=== PATIENT | male | born 1955 | race Caucasian/White ===

== ENCOUNTER 2020-07-26 12:05 | Emergency (ER) | payer OTHER, SELFPAY ==
[2020-07-26 12:24] VITALS: BP 178/106; PULSE 73; RESP 18; TEMP 37; O2SAT 98; BMI 32.8
--- NOTE | 2020-07-26 12:38 | ED.MALEGU ---
HPI - Male Genitourinary General Chief complaint: Urogenital-Male Stated complaint: Urinary Retention Time Seen by Provider: 07/26/20 12:28 Source: patient Mode of arrival: ambulatory Limitations: no limitations History of Present Illness HPI Narrative: patient comes to emergency room complaining of difficulty urinating. Patient states it mullins when he tries to urinate. His symptoms started earlier this morning, approximately 3 hours ago. States it is the 1st time this happens. Denies hematuria, No flank pain, No abdominal pain. Patient states he has been dribbling Related Data Previous Rx's Medication Instructions Recorded phenazopyridine 100 mg PO TID 4 Days #12 tab 07/26/20 tamsulosin 0.4 mg PO BEDTIME #14 cap 07/26/20 Allergies Allergy/AdvReac Type Severity Reaction Status Date / Time No Known Allergies Allergy Verified 07/26/20 12:38 [No Known Allergies*] Review of Systems Review of Systems: Constitutional : No Weight loss, No Fever, No Chills, No Night Sweats, No Fatigue, No Malaise ENT/Mouth : No Hearing loss, No Ear Pain, No Nasal Congestion, No Sinus Pain, No Hoarseness, No sore throat, No Rhinorrhea, No Swallowing Difficulty Eyes: No Eye Pain, No Swelling, No Redness, No Foreign Body, No Discharge, No Vision Changes Cardiovascular : No Chest Pain, No SOB, No Dyspnea on Exertion, No Orthopnea, No Edema, No Palpitations Respiratory : No Cough, No Sputum, No Wheezing, No Smoke Exposure, No Dyspnea Gastrointestinal : No Nausea, No Vomiting, No Diarrhea, No Constipation, No abdominal Pain, No Hematochezia, No Melena Genitourinary : patient comes in complaining urinary retention, dysuria, dribbling , patient denies Flank Pain, Musculoskeletal : No joint pain, No Myalgias, No Joint Swelling Skin : No Skin Lesions, No rash Neuro : No Weakness, No Numbness, No Paresthesias, No Loss of Consciousness, No Dizziness, No Headache Psych : No Anxiety/Panic, No Depression, No SI/HI/AH/VH, No Social Issues, Heme/Lymph: No Bruising, No Bleeding,No Lymphadenopathy Endocrine : No Polyuria, No Polydipsia, No Temperature Intolerance Yes all other systems are reviewed and are negative PMFSH Past Medical History Medical History Hyperlipemia Hypertension Right rib fracture Social History Social History Alcohol intake: current Alcohol intake frequency: a few times a week Smoking Status: Current every day smoker Use of substances other than those prescribed or required for medical reasons: No Advance Directives: No Advance Directives Information Provided: No Physical Exam Vital Signs: Vital Signs: Vital Signs Temp Pulse Resp BP Pulse Ox 07/26/20 12:24 98.6 F 73 18 178/106 H 98 Body Mass Index 32.8 Appearance: Alert. Oriented X3. No acute distress. Eyes: Pupils equal, round and reactive to light. ENT: Pharynx normal. Neck: Normal inspection. Neck supple. No lymph nodes noted. No crepitus CVS: Normal heart rate and rhythm. Pulses normal. Normal S1 and S2 Respiratory: No respiratory distress. Breath sounds normal. No Wheezing. No rales Abdomen: Soft and nontender. No rigidity. No distention. good BS x4, bedside bladder scan shows 48 mL of urine : prostate is mildly enlarged, nontender, No palpable nodules Skin: Skin warm and dry. Normal skin color. Normal skin turgor. Extremities: No lower extremity edema. No lower extremity edema. No Lacerations. No Rash Neuro: Oriented X 3. No motor deficit. No sensory deficit. Moving all extermities. No slurred speech. Course Course Course Narrative: patient states that suddenly he is urinating normal. I discussed with the patient that he does not have a urinary tract infection. We will send him home with a prescription of tamsulosin and phenazopyridine to help with the burning sensation. Patient instructed to follow-up with his primary care physician and Urology [facility] - Male Genitourinary Lab Data Labs: Lab Results 07/26/20 Range/Units 13:00 Urine Color YELLOW Urine Appearance HAZY Urine pH 6.0 (5.0-8.0) Ur Specific [place] >= 1.030 H (1.005-1.025) Urine Protein TRACE (NEG-TRACE) MG/DL Urine Glucose (UA) NEG (NEG) MG/DL Urine Ketones NEG (NEG) MG/DL Urine Blood 2+ H (NEG) Urine Nitrite NEG (NEG) Ur Leukocyte Esterase NEG (NEG) Urine RBC 5-9 H (0) /HPF Urine WBC 0 (0-4) /HPF Ur Squamous Epith Cells 1+ /LPF Urine Bacteria NONE /LPF Urine Mucus 1+ /LPF Discharge Plan Discharge Clinical Impression: Benign prostatic hyperplasia (BPH) with urinary urgency Patient Disposition: Home, Self-Care Instructions: Enlarged Prostate (BPH) (ED) Additional Instructions: Please follow-up with your primary care physician tomorrow. If you have any worsening or new symptoms, please return to the emergency room or call 911 Prescriptions: New tamsulosin 0.4 mg capsule 0.4 mg PO BEDTIME Qty: 14 RF: 0 phenazopyridine 100 mg tablet 100 mg PO TID 4 Days Qty: 12 RF: 0
[2020-07-26 13:15] LABS: Glucose Urine UA NEG (NEG); Leukocyte Esterase Urine NEG (NEG); Nitrite Urine NEG (NEG); Specific Gravity - Urine >= 1.030 (1.005-1.025); Urine Blood 2+ (NEG); Urine Ketones NEG (NEG); Urine Protein TRACE MG/DL (NEG-TRACE)
[2020-07-26 13:16] LABS: Appearance Urine HAZY; Color Urine YELLOW
[2020-07-26 13:22] LABS: Mucus Urine 1+ /LPF; Squamous Epithelial Cell Urine 1+ /LPF; WBC Urine 0 /HPF (0-4)
== END 2020-07-26 14:16 | disposition home or self-care (01) ==
PROVIDERS: Emergency Provider Emergency Medicine; PCP Internal Medicine
DX: N40.1 Benign prostatic hyperplasia with lower urinary tract symptoms (principal); R39.15 Urgency of urination; F17.200 Nicotine dependence, unspecified, uncomplicated; Z71.6 Tobacco abuse counseling; Z79.899 Other long term (current) drug therapy
CPT/HCPCS: 51798; 81001; 99283; 99284

== ENCOUNTER 2020-09-11 14:35 | Emergency (ER) | payer OTHER, SELFPAY ==
[2020-09-11 14:52] VITALS: BP 118/91; PULSE 93; RESP 17; TEMP 36.6; O2SAT 98; BMI 33.2
--- NOTE | 2020-09-11 16:56 | ED_ITS ---
HPI - Allergic Reaction General Chief complaint: Allergic Reaction Stated complaint: allergic reaction Time Seen by Provider: 09/11/20 16:55 Source: patient Mode of arrival: ambulatory Limitations: no limitations History of Present Illness HPI narrative: 65 y/o male with history of BPH, HLD, HTN on lisinopril and atenolol presents to the ED today with acute onset of lower lip swelling that started at noon today. He reports he also noticed a itchy rash all over his body yesterday that improved today after taking a bath with aveeno. He took his BP meds early this morning. He has never had this reaction before. He denies wheezing, SOB, tongue swelling, difficulty swallowing or speaking. He states the rash yesterday started on his thighs and spread to his chest and back. It is significantly improved today. MD complaint: allergic reaction and facial swelling Onset (ago): hour(s) (5) Exposure: medication Symptoms: rash, itching and lip swelling Severity: moderate Treatment prior to arrival: none Previous Allergic Reaction History: none Related Data Home Medications Medication Instructions Recorded Confirmed atenolol 50 mg tablet 50 mg PO DAILY 07/30/20 08/24/20 Previous Rx's Medication Instructions Recorded phenazopyridine 100 mg PO TID 4 Days #12 tab 07/26/20 tamsulosin 0.4 mg PO BEDTIME #14 cap 07/26/20 simvastatin 40 mg tablet 40 mg PO BEDTIME #90 tab 08/13/20 omeprazole 20 mg capsule,delayed 20 mg PO DAILY #60 cap 08/24/20 release famotidine [Pepcid] 40 mg PO DAILY #7 tab 09/11/20 prednisone 40 mg PO DAILY #8 tab 09/11/20 Allergies Allergy/AdvReac Type Severity Reaction Status Date / Time lisinopril Allergy Severe Angioedema Verified 09/11/20 17:13 Review of Systems Review of Systems: Constitutional: No Fever, No Chills ENT/Mouth: No sore throat, No Rhinorrhea, No Swallowing Difficulty, + lip swelling Eyes: No Swelling, + Redness (above left eye) Cardiovascular: No Chest Pain, No SOB Respiratory: No Cough, No Wheezing, No dyspnea Gastrointestinal: No Nausea, No Vomiting, No Diarrhea, No abdominal Pain, Musculoskeletal: No joint pain, No Myalgias Skin: No Skin Lesions, + rash Neuro: No Weakness, No Numbness, No Dizziness, No Headache Heme/Lymph: No Bruising, No Lymphadenopathy PMFSH Past Medical History Attestation statement: The following information was validated with the patient. Medical History Hyperlipemia Hypertension Right rib fracture Surgical History (Updated 07/29/20 @ 13:42 by GOPAL Montgomery) No pertinent past surgical history Family History Family History (Updated 07/29/20 @ 13:45 by GOPAL Montgomery) Father Cancer Mother Arthritis Social History Social History Alcohol intake: current Alcohol intake frequency: a few times a week Smoking Status: Current every day smoker Advance Directives: No Advance Directives Information Provided: Yes Physical Exam Vital Signs: Vital Signs: Last Vital Signs Temp 98 F 09/11/20 14:52 Pulse 93 09/11/20 14:52 Resp 17 09/11/20 14:52 BP 118/91 H 09/11/20 14:52 Pulse Ox 98 09/11/20 14:52 Body Mass Index 33.2 Appearance: Alert. Oriented X3. No acute distress. Eyes: Pupils equal, round and reactive to light. Mild edema of bilateral upper eyelid, L>R, EOMI. No conjunctival injection., ENT: significant lower lip swelling, normal oropharynx, uvula midline, no tongue swelling, normal voice Neck: Normal inspection. Neck supple. CVS: Normal heart rate and rhythm. Pulses normal. Respiratory: No respiratory distress. Breath sounds normal. Skin: Skin warm and dry. Normal skin color. Normal skin turgor. mild scattered maclopapular erythematous rash on left arm, chest and upper back Extremities: No lower extremity edema. Neuro: Oriented X 3. No motor deficit. No sensory deficit. Course Course Course Narrative: 65 yo male presenting with lip swelling likely angioedema due to lisinopril. He is hemodynamically stable with SpO2 98% on room air. He reports the lip swelling is improving since this afternoon and he denies tongue swelling, difficulty swallowing. No wheezing, no airway involvement. Subjec tively improving. He spent 2 hours in the waiting room. Will monitor in the ER for another 2 hours minimum. Will frequently reassess. Reevaluation(s) Reevaluation #1: Patient given prednisone, pepcid and benadryl. He reports improvement in symptoms. Lip swelling is stable, possibly improving on the right side on re-evaluation. Will continue to monitor in the ER. Signed out to Rosemary BUSH. MDM - Allergic Reaction Differential Diagnosis Differential diagnosis: Likely anaphylaxis, allergic reaction, angioedema, contact dermatitis, adverse reaction to drug and urticaria Discharge Plan Discharge Clinical Impression: Angioedema Patient Disposition: Home, Self-Care Instructions: Angioedema (ED) Additional Instructions: Your lip swelling today was most likely from an allergic reaction to LISINOPRIL. You should STOP taking Lisinopril immediately and never take it again. It should be on your allergy list from now on. Take Benadryl 25 mg every 6 hours until swelling is resolved. Follow up with your doctor on Monday so they can decide if you should be started on another medication for high blood pressure. If you develop any shortness of breath, wheezing, tongue swelling, difficulty swallowing, worsening lip swelling or any other concerning call 911 or come back to the ER for further evaluation. Angioedema can be life-threatening. Prescriptions: New prednisone 20 mg tablet 40 mg PO DAILY Qty: 8 RF: 0 famotidine [Pepcid] 40 mg tablet 40 mg PO DAILY Qty: 7 RF: 0 Continued simvastatin 40 mg tablet 40 mg PO BEDTIME Qty: 90 RF: 8 tamsulosin 0.4 mg capsule 0.4 mg PO BEDTIME Qty: 14 RF: 0 phenazopyridine 100 mg tablet 100 mg PO TID 4 Days Qty: 12 RF: 0 atenolol 50 mg tablet 50 mg PO DAILY RF: 0 omeprazole 20 mg capsule,delayed release(DR/EC) 20 mg PO DAILY Qty: 60 RF: 0 Discontinued lisinopril 10 mg tablet 10 mg PO DAILY Qty: 90 RF: 8
[2020-09-11] MEDS: Famotidine 20 MG TABLET PO (17:08)
[2020-09-11] MEDS: diphenhydrAMINE HCL 25 MG TABLET PO (17:08)
[2020-09-11] MEDS: predniSONE 20 MG TABLET 40 MG PO (17:09)
== END 2020-09-11 19:00 | disposition home or self-care (01) ==
PROVIDERS: Emergency Provider Internal Medicine; PCP Internal Medicine
DX: L23.9 Allergic contact dermatitis, unspecified cause (principal); F17.200 Nicotine dependence, unspecified, uncomplicated; Z71.6 Tobacco abuse counseling; Z79.899 Other long term (current) drug therapy
CPT/HCPCS: 99283; 99284; Q0163

== ENCOUNTER 2021-03-08 11:05 | Outpatient (REF) | payer OTHER, SELFPAY ==
[2021-03-08 12:39] LABS: Hematocrit 42.2 % (42-52); Hemoglobin 14.3 g/dl (14.0-18.0); Mean Corpuscular HGB Conc 33.9 g/dl (31.0-36.0); Mean Corpuscular Hemoglobin 31.3 pg (27.0-33.0); Mean Corpuscular Volume 92.3 fL (80-98); Mean Platelet Volume 10.1 fL (9.4-12.4); Platelet Count 399 X10*3/uL (160-400); Red Blood Count 4.57 X10*6/uL (4.60-5.80); Red Cell Distribution Width 12.6 % (11.0-16.0); White Blood Count 7.4 X10*3/uL (4.8-10.8)
[2021-03-08 13:35] LABS: Alanine Aminotransferase 24 U/L (0-40); Albumin Level 4.4 g/dL (3.5-5.0); Alkaline Phosphatase 77 U/L (39-117); Anion Gap 14 (12-20); Aspartate Amino Transferase 25 U/L (5-37); Bilirubin Total 0.8 mg/dL (0.0-1.0); Blood Urea Nitrogen 18 mg/dL (9-16); Calcium 9.6 mg/dL (8.4-10.2); Carbon Dioxide 28 mmol/L (22-29); Chloride 100 mmol/L (96-108); Cholesterol 139 mg/dL; Estimated Glomerular Filt Rate > 60; Glucose Random 100 mg/dL (60-115); HDL Cholesterol 44 mg/dL; LDL Cholesterol Calculated 82 mg/dl; Potassium 3.7 mmol/L (3.3-5.1); Sodium 138 mmol/L (135-145); Total Protein 7.2 g/dL (6.5-8.0); Triglycerides 67 mg/dL
[2021-03-08 13:41] LABS: Thyroid Stimulating Hormone 0.78 uIU/mL (0.32-4.0)
[2021-03-09 10:16] LABS: Free Prostate Spec Ag 0.5 ng/mL; Percent Free Prostate Spec Ag 31 % (calc) (>25); Prostate Specific Ag Total 1.6 ng/mL (< OR = 4.0)
== END 2021-03-08 11:06 | disposition home or self-care (01) ==
LOC: HO.LAB 11:05
PROVIDERS: PCP Internal Medicine; Visit Provider Internal Medicine
DX: E78.2 Mixed hyperlipidemia (principal); I10 Essential (primary) hypertension; N40.1 Benign prostatic hyperplasia with lower urinary tract symptoms
CPT/HCPCS: 36415; 80053; 80061; 84154; 84443; 85027

== ENCOUNTER 2022-11-08 09:56 | Outpatient (REF) | payer MEDICARE, MEDICAID, SELFPAY ==
--- NOTE | ~2022-11-08 | XR_ITS ---
EXAMINATION: XR LUMBOSACRAL SPINE CLINICAL INFORMATION: Low back pain. COMPARISON: None TECHNIQUE: Three views of the lumbosacral spine. XR/XR lumbar spine 2-3V FINDINGS/IMPRESSION: Findings suggest compression deformities of T10-T12, ages indeterminate. Recommend clinical correlation. If clinical suspicion for acute compression fracture exists, and if clinically indicated, MRI including STIR sequences may be of use for further evaluation. Findings also demonstrate bilateral spondylolysis with moderate disc degenerative change and grade 1 anterolisthesis at L5-S1. No lytic or sclerotic bony lesion is identified. The paraspinal soft tissues appear unremarkable. Dr. Johnson was directly informed of the findings by telephone at approximately 2:45 PM on November 10, 2022.
== END 2022-11-08 09:57 | disposition home or self-care (01) ==
LOC: HO.XRAY 09:56
PROVIDERS: PCP Internal Medicine; Visit Provider Internal Medicine
DX: M54.50 Low back pain, unspecified (principal)
CPT/HCPCS: 72100

== ENCOUNTER 2023-01-03 15:32 | Outpatient (REF) | payer MEDICARE, MEDICAID, SELFPAY ==
--- NOTE | ~2023-01-03 | MR_ITS ---
EXAMINATION: MR THORACIC SPINE WITHOUT CONTRAST CLINICAL INFORMATION: Lower back pain with multiple sites vertebral body fractures. Suspected T10-T12. COMPARISON: Plain films of the lumbar spine 11/18/2022. TECHNIQUE: MRI of the thoracic spine was obtained using routine sequences without contrast. FINDINGS: VERTEBRAL BODIES AND PARASPINAL STRUCTURES: There is a mild dextroscoliosis in the lower lumbar spine. There is multilevel narrowing of intervertebral disc height with loss of signal. There is a compression fracture have the body of T12 with loss of approximately 75% vertebral body height centrally. This vertebral body has hyperintense STIR signal extending into the bilateral pedicles of T12, consistent with an acute compression fracture. The signal from the adjacent T11 and L1 vertebral bodies appears isointense to the vertebrae elsewhere. However, there is increased STIR signal in the spinous process of T11, which may be consistent with a fracture there as well. There is mild loss of vertebral body height superiorly of T8 with approximately 30% vertebral body height loss centrally. This vertebra has isointense signal to the adjacent structures, consistent with a chronic fracture. Elsewhere, marrow signal is homogenous and appears normal. The paravertebral and the visualized posterior thoracic and superior retroperitoneal structures are unremarkable. There are multilevel degenerative changes at costovertebral junctions bilaterally. The conus is at the level of L2. Accounting for artifact, spinal cord signal appears normal. SPINAL LEVELS: C5-C6: There is reversal of the normal cervical lordosis. There is narrowing of intervertebral disc height at this level with posterior disc osteophytes, which efface CSF ventral to the spinal cord. There is likely bilateral foraminal narrowing at this level. C6-C7: There is a posterior disc protrusion with some effacement of CSF ventral to the cord but there is no cord compression or central stenosis. The neural foramina appear patent. C7-T1 through T10-T11: The posterior disc contours appear normal and there is no cord compression or central stenosis. The neural foramina appear patent. T11-T12: There is mild bilateral facet arthropathy. There is a posterior disc protrusion with some effacement of CSF ventral to the cord. There is posterior protrusion of the superior body of T12, with minimal mass effect on the cord and there is no significant stenosis. There is mild right foraminal narrowing. T12-L1: The facet joints appear normal bilaterally. Disc contour is normal. There is no central stenosis or foraminal narrowing. L1-L2: There is a small posterior disc protrusion with an annular fissure without mass effect on the conus. The neural foramina are patent bilaterally. MR/MR thoracic spine wo con IMPRESSION: 1. There is an acute compression fracture of the body of T12 with loss of approximately 75% vertebral body height centrally. There is abnormal signal in the bilateral pedicles of T12, consistent with an acute fracture. There is also likely a fracture of the spinous process of T11. 2. There are sequelae of a chronic compression fracture of the body of T8. 3. There are spondylitic changes at C5-C6 and C6-C7, which could be further evaluated with MRI scan of the cervical spine if clinically indicated. 4. At T11-T12 there is facet arthropathy and there is a posterior disc protrusion. There is no cord compression or central stenosis. There is mild right foraminal narrowing.
== END 2023-01-03 15:33 | disposition home or self-care (01) ==
LOC: HO.MRI 15:32
PROVIDERS: PCP Internal Medicine; Visit Provider Internal Medicine
DX: M54.50 Low back pain, unspecified (principal)
CPT/HCPCS: 72146

== ENCOUNTER 2023-05-01 10:53 | Outpatient (REF) | payer MEDICARE, MEDICAID, SELFPAY ==
--- NOTE | ~2023-05-01 | US_ITS ---
EXAMINATION: US EXTRACRANIAL CAROTID DUPLEX, BILATERAL CLINICAL INFORMATION: Hypertension. COMPARISON: None available. TECHNIQUE: Real-time ultrasound and Doppler techniques (integrating B-mode 2-D vascular images, Doppler spectral analysis and color-flow Doppler imaging) were utilized to interrogate the extracranial carotid arteries, the vertebral arteries and proximal subclavian arteries bilaterally. The degree of stenosis is determined by criteria similar to NASCET. FINDINGS: Right Side: 1. There is mild atherosclerotic plaque seen in the bifurcation/proximal ICA region. 2. The common carotid artery PSV proximally is 93 cm/s and distally 77 cm/s. 3. The proximal internal carotid artery velocities are 57 cm/s systolic and 11 cm/s diastolic. 4. The proximal external carotid artery PSV is 80 cm/s. 5. The vertebral artery shows antegrade flow. 6. The subclavian artery waveforms are normal. Left Side: 1. There is mild atherosclerotic plaque seen in the bifurcation/proximal ICA region. 2. The common carotid artery PSV proximally is 122 cm/s and distally 88 cm/s. 3. The proximal internal carotid artery velocities are 57 cm/s systolic and 14 cm/s diastolic. 4. The proximal external carotid artery PSV is 119 cm/s. 5. The vertebral artery shows antegrade flow. 6. The subclavian artery waveforms are normal. US/US carotid duplex BI IMPRESSION: 1. RIGHT: Minimal, non-hemodynamically significant stenosis of the proximal right internal carotid artery corresponding to a 0-49% stenosis by velocity criteria. 2. LEFT: Minimal, non-hemodynamically significant stenosis of the proximal left internal carotid artery corresponding to a 0-49% stenosis by velocity criteria.
== END 2023-05-01 10:54 | disposition home or self-care (01) ==
LOC: HO.US 10:53
PROVIDERS: PCP Internal Medicine; Visit Provider Pediatrics
DX: R42 Dizziness and giddiness (principal); I10 Essential (primary) hypertension
CPT/HCPCS: 93880

== ENCOUNTER 2025-01-03 08:51 | Outpatient (REF) | payer MEDICARE, SELFPAY ==
--- OUTSIDE RECORDS SUMMARY | 2025-01-03 09:28 | XMS_ITS | Encounter Summary ---
Author Organization [employer] Address [address] [place] [address] 7 [place] [address] Care Team Providers Care Freezing Room Worker Name Role Phone Reuben Johnson MD Primary Care Provider [phone] Encounter Details Date Type Department Care Team ([facility] Contact Info) Description 11/11/2022 Orders Only [facility] [address] [place] [address] Reuben Johnson MD [address], [place] [id number] Low back pain at multiple sites (Primary Dx) Social History Tobacco Use Types Packs/Day Years Used Date Smoking Tobacco: Every Day Cigarettes Smokeless Tobacco: Never Sex and Gender Information Value Date Recorded Sex Assigned at Male 08/01/2022 10:23 AM EDT Legal Sex Male 10:23 AM EDT Gender Identity Male 08/01/2022 10:23 AM EDT Sexual Orientation Straight 08/01/2022 10 :23 AM EDT COVID-19 Exposure Response Date Recorded In the last 10 days, have yo u been in contact with someone who was confirmed or suspected to have Coronavirus/COVID-19? No / Unsure 11/07/2022 3:17 PM EST documented as of this encounter Plan of Treatment Upcoming Encounters Date Type Department Care Team ([facility] Contact Info) Description 01/09/2025 1:00 PM EDT Clinical Support [facility] [address] [place] [address] 04/21/2025 1:00 PM EDT Office Visit [facility] [address], [place] [phone] Reuben Johnson MD [address] [place] [address] Scheduled Orders Name Type Priority Associated Diagnoses Orde r Schedule MR Thoracic Spine w/o Contrast Imaging Routine Low back pain at multiple sites Expected: 11/16/2022, Expires: 11/16/2023 documented as of this encounter Visit Diagnoses Diagnosis Low back pain at multiple sites- Primary documented in this encounter Care Teams Freezing Room Worker Relationship Specialty Start Date End Date Reuben Johnson MD [address] [place] [address] PCP - General Internal Medicine 03/08/21 documented as of this encounter
--- OUTSIDE RECORDS SUMMARY | 2025-01-03 09:28 | XMS_ITS | Encounter Summary ---
Author Organization [employer] [facility] Address [address] [place] [address] Care Team Providers Care Sheet Music Salesperson Name Role Phone Reuben Johnson MD Primary Care Provider [phone] Reason for Visit * Reason Comments Med Refill Encounter Details Date Type Department Care Team ([facility] Contact Info) Description 11/11/2024 Refill [facility] [address] [place] [address] Reuben Johnson MD [address] [place] [address] Venous insufficiency (chronic) (peripheral) Social History Tobacco Use Types Packs/Day Years Used Date Smoking Tobacco: Every Day Cigarettes Smokeless Tobacco: Never Sex and Gender Information Value Date Recorded Sex Assigned at Male 08/01/2022 10:23 AM EDT Legal Sex Male 10:23 AM EDT Gender Identity Male 08/01/2022 10:23 AM EDT Sexual Orientation Straight 08/01/2022 10 :23 AM EDT documented as of this encounter Plan of Treatment Upcoming Encounters Date Type Department Care Team ([facility] Contact Info) Description 01/09/2025 1:00 PM EDT Clinical Support [facility] [address] [place] [address] 04/21/2025 1:00 PM EDT Office Visit [facility] [address] [place] [address] Reuben Johnson MD [address] [place] [address] documented as of this encounter Visit Diagnoses Diagnosis Venous insufficiency (chronic) (peripheral) Unspecified venous (peripheral) insufficiency documented in this encounter Care Teams Sheet Music Salesperson Relationship Specialty Start Date End Date Reuben Johnson MD [address] [place] [id number] PCP - General Internal Medicine 03/08/21 documented as of this encounter
--- OUTSIDE RECORDS SUMMARY | 2025-01-03 09:28 | XMS_ITS | Encounter Summary ---
Author Organization [employer] [facility] Address [address] [place] [address] Care Team Providers Care Provider Relations Coordinator Name Role Phone Reuben Johnson MD Primary Care Provider [phone] Reason for Visit * Reason Comments Med Refill Encounter Details Date Type Department Care Team ([facility] Contact Info) Description 11/12/2024 Refill [facility] PEDS [address] [place] [address] Reuben Johnson MD [address] [place] [address] Benign prostatic hyperplasia with lower urinary tract symptoms Social History Tobacco Use Types Packs/Day Years [...] Upcoming Encounters Date Type Department Care Team (Late Contact Info) Description 01/09/2025 1:00 PM EDT Clinical Support [facility] P[facility] [address] [place] [address] 04/21/2025 1:00 PM EDT Office Visit [facility] PED[facility] [address] [place] [address] Reuben Johnson MD [address] [place] [address] documented as of this encounter Visit Diagnoses Diagnosis Benign prostatic hyperplasia with lower urinary tract symptoms documented in this encounter Care Teams Provider Relations Coordinator Relationship Specialty Start Date End Date Reuben Johnson MD [address] [place] [id number] PCP - General Internal Medicine 03/08/21 documented as of this encounter
--- OUTSIDE RECORDS SUMMARY | 2025-01-03 09:28 | XMS_ITS | Encounter Summary ---
Author Organization [employer] [facility] Address [address] [place] [address] Care Team Providers Care Corn Breeder Name Role Phone Reuben Johnson MD Primary Care Provider [phone] Reason for Visit * Reason Comments Med Refill Encounter Details Date Type Department Care Team ([facility] Contact Info) Description 11/16/2024 Refill [facility] PEDS [address] [place] [address] Reuben Johnson MD [address] [place] [address] Venous insufficiency (chronic) (peripheral) Social History Tobacco [...] Upcoming Encounters Date Type Department Care Team ([facility] Contact Info) Description 01/09/2025 1:00 PM EDT Clinical Support [facility] [address] [place] [address] 04/21/2025 1:00 PM EDT Office Visit [facility] [address] [place] [address] Reuben Johnson MD [address] [place] [address] documented as of this encounter Visit Diagnoses Diagnosis Venous insufficiency (chronic) (peripheral) Unspecified venous (peripheral) insufficiency documented in this encounter Care Teams Corn Breeder Relationship Specialty Start Date End Date Reuben Johnson MD [address] [place] [phone] PCP - General Internal Medicine 03/08/21 documented as of this encounter
--- OUTSIDE RECORDS SUMMARY | 2025-01-03 09:28 | XMS_ITS | Encounter Summary ---
Author Organization [employer] Address [address] [place] [address] 7t [place] [address] Care Team Providers Care Nut Former Name Role Phone Reuben Johnson MD Primary Care Provider [phone] Encounter Details Date Type Department Care Team ([facility] Contact Info) Description 02/22/2023 Orders Only [facility] [address] [place], [place] [phone] Reuben Johnson MD [address] [place], [place] [phone] Low back pain at multiple sites (Primary [...] suspected to have Coronavirus/COVID-19? No / Unsure 02/09/2023 10:16 AM EDT documented as of this encounter Plan of Treatment Upcoming Encounters Date Type Department Care Team ([facility] Contact Info) Description 01/09/2025 1:00 PM EDT Clinical Support [facility] [address] [place], [place] [phone] 04/21/2025 1:00 PM EDT Office Visit [facility] [address] [place], [place] [phone] Reuben Johnson MD [address] [place] [address] documented as of this encounter Visit Diagnoses Diagnosis Low back pain at multiple sites- Primary documented in this encounter Care Teams Nut Former Relationship Specialty Start Date End Date Reuben Johnson MD [address] [place] [address] PCP - General Internal Medicine 03/08/21 documented as of this encounter
--- OUTSIDE RECORDS SUMMARY | 2025-01-03 09:29 | XMS_ITS | Encounter Summary ---
Author Organization [employer] [facility] Address [address] [place] [address] 7 [place] [address] Care Team Providers Care Rolled Gold Plater Name Role Phone Reuben Johnson MD Primary Care Provider [phone] Reason for Visit * Reason Comments Med Refill Encounter Details Date Type Department Care Team ([facility] Contact Info) Description 12/28/2024 Refill [facility] [address] [place] [address] Reuben Johnson MD [address] [place] [address] Essential (primary) hypertension Social History Tobacco Use Types Packs/Day Years [...] Description 01/09/2025 1:00 PM EDT Clinical Support [facility] [address] [place] [address] 04/21/2025 1:00 PM EDT Office Visit [facility] [address] [place] [address] Reuben Johnson MD [address] [place] [address] documented as of this encounter Visit Diagnoses Diagnosis Essential (primary) hypertension Unspecified essential hypertension documented in this encounter Care Teams Rolled Gold Plater Relationship Specialty Start Date End Date Reuben Johnson MD [address] [place] [address] PCP - General Internal Medicine 03/08/21 documented as of this encounter
--- OUTSIDE RECORDS SUMMARY | 2025-01-03 09:29 | XMS_ITS | Encounter Summary ---
Author Organization [employer] Address [address] [place] [address] Care Team Providers Care Marine Animal Trainer Name Role Phone Reuben Johnson MD Primary Care Provider [phone] Reason for Referral * Imaging (Routine) - Authorized Specialty Diagnoses / Procedures Referred By Gerson bailey Referred To Contact Radiology Diagnoses Gynecomastia, male Procedures BI Mammogram Diagnostic Tomosynthesis added left Reuben Johnson MD [address] [place] [address] Phone: tel: fax: [address] Phone: tel: fax: Referral ID Status Reason Start Date Expiration Date V isits Requested Visits Authorized [id number] Authorized 01/02/2025 01/02/2026 1 1 Reason for Visit * Reason Comments Hypertension Encounter Details Date Type Department Care Team (Late st Contact Info) Description 01/02/2025 1:00 PM EDT Office Visit [facility]S [address] [place] [address] Reuben Johnson MD [address] [place], [place] [phone] Primary hypertension (Primary Dx); Lichen simplex chronicus; Gynecomastia, male; Dietary counseling; Exercise counseling; Class 2 severe obesity due to excess calories with serious comorbidity and body mass index (BMI) of 35.0 to 35.9 in adult (CMS/[facility]) Social History Tobacco Use Types Packs/Day Years Used Date Smoking Tobacco: Every Day Cigarettes Smokeless Tobacco: Never Depression Answer Date Recorded Patient Health Questionnaire-9 Score 0 01/02/2025 Patient Health Questionnaire-9 Score 0 01/02/2025 Last PHQ-9: Questionnaire Data Not on file 0 01/02/2025 Housing Stability Answer Date Recorded What is your housing situation today? I have fab mckeon 01/02/[address] you li ve. Do you have problems with any of the following? None of the above 01/02/2025 Food Insecurity Answer Date Recorded Within the past 12 months, y ou worried that your food would run out before you got money to buy more: Never True 01/02/2025 Within the past 12 months,th e food you bought just didn't last and you didn't have enough money to get more: Never True 11/2024 Transportation Answer Date Recorded In the past 12 months, has l ack of transportation kept you from medical appts, meetings, work or from getting things needed for daily living? No 01/02/2025 Utilities Answer Date Recorded In the past 12 months, has t he electric, gas, oil or water company threatened to shut off services in your home? No 01/02/2025 Depression Answer Date Recorded Patient Health Questionnaire-2 Score 0 01/02/2025 Internet Access Answer Date Recorded Internet Access Q1 No 01/02/2025 Internet Access Q2 Not on file 01/02/2025 Sex and Gender Information Value Date Recorded Sex Assigned at Male 08/01/2022 10:23 AM EDT Legal Sex Male 10:23 AM EDT Gender Identity Male 08/01/2022 10:23 AM EDT Sexual Orientation Straight 08/01/2022 10 :23 AM EDT documented as of this encounter Last Filed Vital Signs Vital Sign Reading Time Taken Comments Blood Pressure 139/78 01/02/2025 1:04 PM EDT Pulse 85 01/02/2025 1:04 PM EDT Temperature 36.7 ??C (98 ??F) 01/02/2025 1:04 PM EDT Respiratory Rate 20 01/02/2025 1:04 PM EDT Oxygen Saturation 95% 01/02/2025 1:04 PM EDT Inhaled Oxygen Concentration - - Weight 101 kg (222 lb) 01/02/2025 1:04 PM EDT Height 167.6 cm (5' 6 ) 01/02/2025 1:04 PM EDT Body Mass Index 35.83 01/02/2025 1:04 PM EDT documented in this encounter Progress Notes * Reuben Johnson MD - 01/02/2025 1:00 PM EDT Subjective Patient ID: Santiago Kaufman is a 69 y.o. male who presents for Hypertension. HPI 1) history of hypertension. Patient is compliant to his medication. He gets his medication speech therapist early intervention without eating and get dizzy after taking it. No recent fall. 2) history of lichen simplex chronicus of the right foot. Needed a refill on his Kenalog ointment at the last visit. He has been using the medication with significant improvement. Denies any itchiness of the area. 3) several months history of tenderness of the left breast. Patient denies any change of color of the skin. No discharge reported. Patient Active Problem List Diagnosis Benign prostatic hyperplasia Hypercholesterolemia Hypertensive disorder Current Outpatient Medications on File Prior to Visit Medication Sig Dispense Refill amLODIPine (Norvasc) 5 MG tablet TAKE 1 TABLET BY MOUTH EVERY DAY 90 tablet 3 atenolol (Tenormin) 50 MG tablet TAKE 1 TABLET BY MOUTH EVERY DAY IN THE MORNING 90 tablet 0 hydroCHLOROthiazide (HYDRODiuril) 25 MG tablet TAKE 1 TABLET BY MOUTH EVERY DAY IN THE MORNING 90 tablet 1 ibuprofen 800 MG tablet TAKE 1 TABLET BY MOUTH THREE TIMES A DAY 90 tablet 0 lisinopril 10 MG tablet Take 1 tablet by mouth at bed time. methocarbamol (Robaxin) 750 MG tablet Take 1 tablet (750 mg) by mouth 4 times daily for 10 days. 40tablet 0 simvastatin (Zocor) 40 MG tablet TAKE 1 TABLET BY MOUTH EVERY DAY IN THE EVENING 90 tablet 3 tamsulosin (Flomax) 0.4 MG 24 hr capsule TAKE 1 CAPSULE BY MOUTH EVERY DAY 90 capsule 1 triamcinolone (Kenalog) 0.5 % cream Apply topically 2 times daily. 15 g 1 [DISCONTINUED] amLODIPine (Norvasc) 5 MG tablet TAKE 1 TABLET BY MOUTH EVERY DAY 90 tablet 3 No current facility-administered medications on file prior to visit. Review of Systems Constitutional: Negative for activity change, appetite change and chills. Respiratory: Negative for cough, shortness of breath and stridor. Cardiovascular: Negative for leg swelling. Musculoskeletal: Negative for back pain, gait problem and joint swelling. Skin: Negative for pallor. Objective BP 139/78 (BP Location: Left arm, Patient Position: Sitting, BP Cuff Size: Adult long) Pulse 85 Temp 98 ??F (36.7 ??C) (Oral) Resp 20 Ht 5' 6 (1.676 m) Wt 222 lb (101 kg) SpO2 95% BMI 35.83 kg/m?? Physical Exam Constitutional: General: He is not in acute distress. Appearance: Normal appearance. He is obese. He is not ill-appearing or diaphoretic. Cardiovascular: Rate and Rhythm: Normal rate and regular rhythm. Pulmonary: Effort: Pulmonary effort is normal. No respiratory distress. Breath sounds: No stridor. No wheezing or rhonchi. Genitourinary: Testes: Normal. Skin: Comments: subareolar glandular tissue of ~ 3 cm in diameter Neurological: General: No focal deficit present. Mental Status: He is alert. Assessment/Plan Diagnoses and all orders for this visit: Primary hypertension Comments: Stable No change in medication. Advised to feed himself before taking his medication in the morning Lichen simplex chronicus Comments: Improved To taper off the triamcinolone to once a day for a week and then every other day and then stop Continue with Vaseline application daily Gynecomastia, male - ibuprofen 800 MG tablet; Take 1 tablet (800 mg) by mouth 3 times daily. - hCG, Total, Quantitative; Future - LH; Future - Testosterone, Free (Dialysis) And Total, MS; Future - Estradiol; Future - BI Mammogram Diagnostic Tomosynthesis added left; Future Dietary counseling Exercise counseling Class 2 severe obesity due to excess calories with serious comorbidity and body mass index (BMI) of35.0 to 35.9 in adult (CMS/HCC) Dietary Recommendations: Fruits, vegetables, whole grains, protein foods, and fat-free or low-fat dairy products are healthychoices. Eat different types of protein foods in your diet. This can include seafood, lean meats, poultry, beans, peas, lentils, nuts, seeds, soy products, and eggs. Limit foods and beverages higher in added sugars, saturated fat, and sodium. Exercise Recommendations: At least 150 minutes of moderate-intensity physical activity per week, or an equivalent combinationof moderate- and vigorous-intensity activity documented in this encounter Plan of Treatment Upcoming Encounters Date Type Department Care Team (Late st Contact Info) Description 01/09/2025 1:00 PM EDT Clinical Support [facility] [address] [place] [address] 04/21/2025 1:00 PM EDT Office Visit [facility] [address] [place] [address] Reuben Johnson MD [address] [place] [address] Scheduled Orders Name Type Priority Associated Diagnoses Orde r Schedule hCG, Total, Quantitative Lab Routine Gynecomastia, male Expected: 01/02/2025 (Approximate), Expires: 01/02/2026 LH Lab Routine Gynecomastia, male Expected: 01/02/2025 (Approximate), Expires: 01/02/2026 Testosterone, Free (Dialysis) And Total, MS Lab Routine Gynecomastia, male Expected: 01/02/2025 (Approximate), Expires: 01/02/2026 Estradiol Lab Routine Gynecomastia, male Expected: 01/02/2025, Expires: 01/02/2026 BI Mammogram Diagnostic Tomosynthesis added left Imaging Routine Gynecomastia, male Expected: 01/02/2025, Expires: 03/04/2026 documented as of this encounter Visit Diagnoses Diagnosis Primary hypertension- Primary Unspecified essential hypertension Lichen simplex chronicus Lichenification and lichen simplex chronicus Gynecomastia, male Hypertrophy of breast Dietary counseling Dietary surveillance and counseling Exercise counseling Class 2 severe obesity due to excess calories with serious comorbidity and body mass index (BMI) of 35.0 to 35.9 in adult (CMS/HCC) documented in this encounter Additional Health Concerns Assessment Noted Time PHQ-9 Depression Total Score: 0 01/03/20 25 1:33 PM EDT documented as of this encounter Care Teams Marine Animal Trainer Relationship Specialty Start Date End Date Reuben Johnson MD [address] [place] [address] PCP - General Internal Medicine 03/08/21 documented as of this encounter
--- OUTSIDE RECORDS SUMMARY | 2025-01-03 09:29 | XMS_ITS | Clinical Summary ---
Author Organization [employer] Address [address] [facility] 7t [place] [address] Care Team Providers Care C++ Quant Developer Name Role Phone Reuben Johnson MD Primary Care Provider [phone] Allergies No known active allergies Medications lisinopril 10 MG tablet Take 1 tablet by mouth at bed time. Active methocarbamol (Robaxin) 750 MG tabletIndications :Low back pain at multiple sites Take 1 tablet (750 mg) by mouth 4 times daily for 10 days. 40 tablet 11/07/19 23 Active ibuprofen 800 MG tablet TAKE 1 TABLET BY MOUTH THREE TIMES A DAY 90 tablet 10/19/19 24 Active simvastatin (Zocor) 40 MG tabletIndications :Mixed hyperlipidemia TAKE 1 TABLET BY MOUTH EVERY DAY IN THE EVENING 90 tablet 3 04/16/20 24 Active triamcinolone (Kenalog) 0.5 % creamIndications: Venous insufficiency (chronic) (peripheral),Lich en simplex chronicus Apply topically 2 times daily. 15 g 1 11/19/19 25 Active hydroCHLOROthiazi de (HYDRODiuril) 25 MG tablet TAKE 1 TABLET BY MOUTH EVERY DAY IN THE MORNING 90 tablet 1 11/25/19 25 Active atenolol (Tenormin) 50 MG tablet TAKE 1 TABLET BY MOUTH EVERY DAY IN THE MORNING 90 tablet 11/25/19 25 Active tamsulosin (Flomax) 0.4 MG 24 hr capsuleIndication s:Benign prostatic hyperplasia with lower urinary tract symptoms TAKE 1 CAPSULE BY MOUTH EVERY DAY 90 capsule 1 12/17/19 25 Active amLODIPine (Norvasc) 5 MG tabletIndications :Essential (primary) hypertension TAKE 1 TABLET BY MOUTH EVERY DAY 90 tablet 3 12/31/19 25 Active ibuprofen 800 MG tabletIndications :Gynecomastia, male Take 1 tablet (800 mg) by mouth 3 times daily. 30 tablet 01/03/20 25 025 Active amLODIPine (Norvasc) 5 MG tabletIndications :Essential (primary) hypertension TAKE 1 TABLET BY MOUTH EVERY DAY 90 tablet 3 11/30/19 24 025 Discontinued tamsulosin (Flomax) 0.4 MG 24 hr capsuleIndication s:Benign prostatic hyperplasia with lower urinary tract symptoms TAKE 1 CAPSULE BY MOUTH EVERY DAY 90 capsule 1 07/11/20 24 025 Discontinued Active Problems Problem Noted Date Diagnosed Date Benign prostatic hyperplasia 03/08/2021 Hypercholesterolemia 03/08/2021 Hypertensive disorder 03/08/2021 Encounters Date Type Department Care Team Description 01/03/2025 Telephone [facility] [address] [place] [address] Reuben Johnson MD Medication Question 01/02/2025 1:00 PM EDT Office Visit [facility] [address] [place] [address] Reuben Johnson MD Primary hypertension (Primary Dx); Lichen simplex chronicus; Gynecomastia, male; Dietary counseling; Exercise counseling; Class 2 severe obesity due to excess calories with serious comorbidity and body mass index (BMI) of 35.0 to 35.9 in adult ([facility]) 01/02/2025 Travel 12/28/2024 Refill [facility] [address] [place] [address] Reuben Johnson MD Essential (primary) hypertension 12/14/2024 Refill [facility] [address] [place] [address] Reuben Johnson MD Benign prostatic hyperplasia with lower urinary tract symptoms 11/25/2024 Telephone [facility] [address] [place] [address] Reuben Thacker MD Med Refill 11/23/2024 Refill [facility] [address] [place] [address] Reuben Johnson MD 11/19/2024 1:00 PM EST Office Visit [facility] [address] [place] [address] Va Santo MD Lichen simplex chronicus (Primary Dx); Venous insufficiency (chronic) (peripheral) 11/19/2024 Travel 11/16/2024 Refill [facility] [address] [place] [address] Reuben Johnson MD Venous insufficiency (chronic) (peripheral) 11/15/2024 Travel 11/12/2024 Refill [facility] [address] [place] [address] Reuben Johnson MD Benign prostatic hyperplasia with lower urinary tract symptoms 11/11/2024 Refill [facility] [address] [place] [address] Reuben Johnson MD Venous insufficiency (chronic) (peripheral) from Last 3 Months Immunizations Name Administration Dates Next Due Moderna Covid-19 Vaccine 12+ 10/11/2021,09/13/20 21 Zoster, Unspecified 09/15/2024 Social History Tobacco Use Types Packs/Day Years Used Date Smoking Tobacco: Every Day Cigarettes Smokeless Tobacco: Never Tobacco Cessation:Ready to Q uit: Not Asked; Counseling Given: Not Answered Depression Answer Date Recorded Patient Health Questionnaire-9 [...] Orientation Straight 08/01/2022 10 :23 AM EDT Last Filed Vital Signs Vital Sign Reading [...] Mass Index 35.83 01/02/2025 1:04 PM EDT Plan of Treatment Upcoming Encounters Date Type Department Care Team (Late st Contact Info) Description 01/09/2025 1:00 PM EDT Clinical Support [facility] [address] [place] [address] 04/21/2025 1:00 PM EDT Office Visit [facility] [address] [place] [address] Reuben Johnson MD [address] [place] [address] Health Maintenance Due Date Last Done Comments CT Colonography 1957 Colonoscopy 1957 Colorectal Cancer Screening 1957 FIT DNA/Cologuard 1957 FIT 1957 FOBT 1957 Sigmoidoscopy 1957 Hepatitis C Screening 1975 DTaP/Tdap/Td Vaccines (1 - Tdap) 01/24/1976 Pneumococcal Vaccine: 50+ Years (1 of 2 - PCV) 01/24/1976 Zoster Vaccines (1 of 2) 2007 09/15/2024 COVID-19 Vaccine (4 - 2023-2 5 season) 2024 04/10/2022, 10/11/2021, 09/13/2021 Influenza Vaccine (#1) 2024 Alcohol/Substance Use Screening 01/02/2026 01/02/2025 Depression Screening 01/02/2026 01/02/2025, 01/02/2025 SDOH Screening 01/02/2026 01/02/2025 Tobacco Screening 01/02/2026 01/02/2025 Lipid Panel 03/02/2027 03/02/2022 RSV Patients and Patients Aged 60 years or older (1 - 1-dose 75+ series) 01/24/2032 HIB Vaccines Aged Out No longer eligi ble based on patient's age to complete this topic HPV Vaccines Aged Out No longer eligi ble based on patient's age to complete this topic Hepatitis A Vaccines Aged Out No long er eligible based on patient's age to complete this topic Hepatitis B Vaccines Aged Out No long er eligible based on patient's age to complete this topic IPV Vaccines Aged Out No longer eligi ble based on patient's age to complete this topic Meningococcal Vaccine Aged Out No gary ina eligible based on patient's age to complete this topic RSV under 20 months Aged Out No longe r eligible based on patient's age to complete this topic Rotavirus Vaccines Aged Out No longer eligible based on patient's age to complete this topic Procedures Procedure Name Priority Date/Time Associated Diagnosis Comments LIPID PANEL, STANDARD Routine 03/02/2022 11:11 AM EDT from Last 3 Months or Most Recently Relevant to Health Maintenance Results * LIPID PANEL, STANDARD (03/02/2022 11:11 AM EDT) Chol/HDLC Ratio 2.5 <5.0 (calc) [facility] Cholesterol, Total 170 <200 mg/dL [facility] HDL Cholesterol 68 > OR = 40 mg/dL [facility] LDL Cholesterol 78 mg/dL (calc) [facility] Comment: Reference range: <100 ?? Desirable range <100 mg/dL for primary prevention; ?? <70 mg/dL for patients with CHD or diabetic patients ?? with > or = 2 CHD risk factors. ?? LDL-C is now calculated using the Geln ?? calculation, which is a validated novel method providing ?? better accuracy than the Friedewald equation in the ?? estimation of LDL-C. ?? Jeff ANGELES et al. RAMIN. 2013;310(19): 5055-3592 ?? (http://[employer].WebThriftStore/faq/KUZ157) Non-HDL Cholesterol 102 <130 mg/dL (calc) [facility] Comment: For patients with diabetes plus 1 major ASCVD risk ?? factor, treating to a non-HDL-C goal of <100 mg/dL ?? (LDL-C of <70 mg/dL) is considered a therapeutic ?? option. Triglycerides 138 <150 mg/dL [facility] 03/02/2022 11:1 1 AM EDT Reuben Johnson MD LAB BLOOD ORDERABLES Final Result [facility] [address] from Last 3 Months or Most Recently Relevant to Health Maintenance Insurance [employer] [facility] [employer] Care Teams C++ Quant Developer Relationship Specialty Start Date End Date Reuben Johnson MD [address] [place] [address] PCP - General Internal Medicine 03/08/21
--- OUTSIDE RECORDS SUMMARY | 2025-01-03 09:29 | XMS_ITS | Encounter Summary ---
Author Organization [employer] Address [address] [facility] 7t [place] [address] Care Team Providers Care Dental Therapist Name Role Phone Reuben Johnson MD Primary Care Provider [phone] Encounter Details Date Type Department Care Team (Latest Contact Info) Description 01/02/2025 Travel Social History Tobacco Use Types Packs/Day Years [...] PM EDT Clinical Support [facility] [address] [place] [address] 04/21/2025 1:00 PM EDT Office Visit [facility] [address] [place] [address] Reuben Johnson MD [address] [place] [address] documented as of this encounter Visit Diagnoses Not on filedocumented in this encounter Additional Health Concerns Assessment Noted Time PHQ-9 Depression Total Score: 0 01/03/20 25 1:33 PM EDT documented as of this encounter Care Teams Dental Therapist Relationship Specialty Start Date End Date Reuben Johnson MD [address] [place] [address] PCP - General Internal Medicine 03/08/21 documented as of this encounter
--- OUTSIDE RECORDS SUMMARY | 2025-01-03 09:29 | XMS_ITS | Encounter Summary ---
Author Organization [employer] Address [address] [facility] 7 [place] [address] Care Team Providers Care Linux Unix Administrator Name Role Phone Reuben Johnson MD Primary Care Provider [phone] Reason for Visit * Reason Onset Date Comments Medication Question 01/03/2025 Encounter Details Date Type Department Care Team ([facility] st Contact Info) Description 01/03/2025 Telephone [facility] [address] [place] [address] Reuben Johnson MD [address] [place] [address] Medication Question Social History Tobacco Use Types Packs/Day Years [...] Description 01/09/2025 1:00 PM EDT Clinical Support [facility] [address] [place] [address] 04/21/2025 1:00 PM EDT Office Visit [facility] [address] [place] [address] Reuben Johnson MD [address] [place] [address] documented as of this encounter Visit Diagnoses Not on filedocumented in this encounter Additional Health Concerns Assessment Noted Time PHQ-9 Depression Total Score: 0 01/03/20 25 1:33 PM EDT documented as of this encounter Care Teams Linux Unix Administrator Relationship Specialty Start Date End Date Reuben Johnson MD [address] [place] [address] PCP - General Internal Medicine 03/08/21 documented as of this encounter
[2025-01-03 14:38] LABS: HCG Quantitative < 2 mIU/mL
[2025-01-04 06:58] LABS: Lutenizing Hormone 2.9 mIU/mL (1.6-15.2)
[2025-01-11 12:59] LABS: Testosterone, Free 35.5 pg/mL (35.0-155.0); Testosterone, Total 206 ng/dL (250-1100)
[2025-01-17 05:53] LABS: Estradiol Ultra Sensitive 30 pg/mL (< OR = 29)
== END 2025-01-03 08:52 | disposition home or self-care (01) ==
LOC: HO.CHCLDS 08:51
PROVIDERS: Visit Provider Internal Medicine
DX: N62 Hypertrophy of breast (principal)
CPT/HCPCS: 36415; 82670; 83002; 84402; 84403; 84702

== ENCOUNTER 2025-01-14 09:32 | Outpatient (REF) | payer MEDICARE, SELFPAY ==
--- OUTSIDE RECORDS SUMMARY | 2025-01-14 10:45 | XMS_ITS | Clinical Summary ---
Author Organization [employer] Address [address] [facility] 7t [place] [address] Care Team Providers Care Outbound Sales Specialist Name Role Phone Reuben Johnson MD Primary Care Provider +1 [phone] Allergies No known active allergies Medications lisinopril [...] Encounters Date Type Department Care Team Description 01/13/2025 Telephone [facility] [address] [facility] [place] [address] Reuben Johnson MD Results 01/13/2025 Orders Only [facility] [address] [place] [address] Reuben Johnson MD Gynecomastia, male (Primary Dx) 01/09/2025 1:00 PM EDT Clinical Support [facility] [address] [facility] [place] [address] Andria Marcelo RN Primary hypertension [I10] 01/09/2025 Travel 01/03/2025 Telephone [facility] [address] [facility] [place] [address] Reuben Johnson MD 01/03/2025 Telephone [facility] [address] [place] [address] Reuben Johnson MD Medication Question 01/02/2025 1:00 PM EDT Office Visit [facility] 505 [facility] [place] [address] Reuben Johnson MD Primary hypertension (Primary Dx); Lichen simplex chronicus; Gynecomastia, male; Dietary counseling; Exercise counseling; Class 2 severe obesity due to excess calories with serious comorbidity and body mass index (BMI) of 35.0 to 35.9 in adult ([facility]) 01/02/2025 Travel 12/28/2024 Refill [facility]EDS [address] [place] [address] Reuben Johnson MD Essential (primary) hypertension 12/14/2024 Refill [facility] [address] [place] [address] Reuben Johnson MD Benign prostatic hyperplasia with lower urinary tract symptoms 11/25/2024 Telephone [facility] [address] [place] [address] Reuben Johnson MD Med Refill 11/23/2024 Refill [facility] [address] [place] [address] Reuben Johnson MD 11/19/2024 1:00 PM EST Office Visit [facility] [address] [place] [address] Va Santo MD Lichen simplex chronicus (Primary Dx); Venous insufficiency (chronic) (peripheral) 11/19/2024 Travel 11/16/2024 Refill [facility] [address] [place] [address] Reuben Johnson MD Venous insufficiency (chronic) (peripheral) 11/15/2024 Travel 11/12/2024 Refill [facility] [address] [place] [address] Reuben Johnson MD Benign prostatic hyperplasia with lower urinary tract symptoms 11/11/2024 Refill [facility] [address] [place] [address] Reuben Johnson MD Venous insufficiency (chronic) (peripheral) [...] Sign Reading Time Taken Comments Blood Pressure 132/72 01/09/2025 1:32 PM EDT Pulse 62 01/09/2025 1:21 PM EDT Temperature 36.7 ??C (98 ??F) [...] Upcoming Encounters Date Type Department Care Team ([facility] st Contact Info) Description 04/21/2025 1:00 PM EDT Office Visit [facility] [address] [place] [address] Reuben Johnson MD 505 [place] [address] Health Maintenance Due Date Last Done Comments [...] Procedure Name Priority Date/Time Associated Diagnosis Comments TESTOSTERONE, FREE (DIALYSIS) AND TOTAL,MS Routine 01/03/2025 8:55 AM EDT Gynecomastia, male LH Routine 01/03/2025 8:55 AM EDT Gynecomastia, male HCG, TOTAL, QN Routine 01/03/2025 8:53 AM EDT Gynecomastia, male LIPID PANEL, STANDARD Routine 03/02/2022 11:11 AM EDT from Last 3 Months or Most Recently Relevant to Health Maintenance Results * hCG, Total, Quantitative (01/03/2025 8:53 AM EDT) HCG Quantitative <2 mIU/mL [facility] Blood Venous blood specimen / Unknown 01/03/2025 8:53 AM EDT 01/03/2025 1:57 PM EDT us Reuben Johnson MD LAB BLOOD ORDERABLES Final Result [facility] [address] [place] [phone] * LIPID PANEL, STANDARD (03/02/2022 11:11 AM EDT) Chol/HDLC Ratio 2.5 <5.0 (calc) [facility] Cholesterol, Total 170 <200 mg/dL [...] ?? LDL-C is now calculated using the Jeff-Sneed ?? calculation, which is a validated novel method providing ?? better accuracy than the Friedewald equation in the ?? estimation of LDL-C. ?? Jeff SS et al. RAMIN. 2013;310(19): 7878-5517 ?? (http://education.BIOCUREX/faq/TEL687) Non-HDL Cholesterol 102 <130 mg/dL (calc) [facility] Comment: For patients with diabetes plus 1 major ASCVD risk ?? factor, treating to a non-HDL-C goal of <100 mg/dL ?? (LDL-C of <70 mg/dL) is considered a therapeutic ?? option. Triglycerides 138 <150 mg/dL [facility] 03/02/2022 11:1 1 AM EDT us Reuben Johnson MD LAB BLOOD ORDERABLES Final Result [facility] [address] from Last 3 Months or Most Recently Relevant to Health Maintenance Insurance [facility] PPO HSN FULL Care Teams Outbound Sales Specialist Relationship Specialty Start Date End Date Reuben Johnson MD [address] [place] [address] PCP - General Internal Medicine 03/08/21
--- OUTSIDE RECORDS SUMMARY | 2025-01-14 10:45 | XMS_ITS | Encounter Summary ---
Author Organization [employer] Address [address] [place] [address] 7 [place] [address] Care Team Providers Care Primer Charger Name Role Phone Reuben Johnson MD Primary Care Provider [phone] Encounter Details Date Type Department Care Team ([facility] Contact Info) Description 02/22/2023 Orders Only [facility] 505 [place], [place] [phone] Reuben Johnson MD 505 [place], [place] [phone] Low back pain at multiple sites (Primary [...] Upcoming Encounters Date Type Department Care Team ([facility] Contact Info) Description 04/21/2025 1:00 PM EDT Office Visit [facility] 505 [place], [place] [phone] Reuben Johnson MD 505 [place], [place] [phone] documented as of this encounter Visit Diagnoses Diagnosis Low back pain at multiple sites- Primary documented in this encounter Care Teams Primer Charger Relationship Specialty Start Date End Date Reuben Johnson MD [address] [place] [address] PCP - General Internal Medicine 03/08/21 documented as of this encounter
--- OUTSIDE RECORDS SUMMARY | 2025-01-14 10:45 | XMS_ITS | Encounter Summary ---
Author Organization [employer] [facility] Address [address] [place] [address] Care Team Providers Care Taxation Accountant Name Role Phone Reuben Johnson MD Primary Care Provider [phone] Reason for Visit * Reason Comments Med Refill Encounter Details Date Type Department Care Team ([facility] Contact Info) Description 11/11/2024 Refill [facility] 505 [place] [address] Reuben Johnson MD 505 [place] [address] Venous insufficiency (chronic) (peripheral) Social History Tobacco [...] Upcoming Encounters Date Type Department Care Team ([facility] Contact Info) Description 04/21/2025 1:00 PM EDT Office Visit [facility] 505 [place] [address] Reuben Johnson MD 505 [place] [address] documented as of this encounter Visit Diagnoses Diagnosis Venous insufficiency (chronic) (peripheral) Unspecified venous (peripheral) insufficiency documented in this encounter Care Teams Taxation Accountant Relationship Specialty Start Date End Date Reuben Johnson MD [address] [place] [address] PCP - General Internal Medicine 03/08/21 documented as of this encounter
--- OUTSIDE RECORDS SUMMARY | 2025-01-14 10:45 | XMS_ITS | Encounter Summary ---
Author Organization [employer] Address [address] [facility] 7t [place] [address] Care Team Providers Care Kinder Teacher Name Role Phone Reuben Johnson MD Primary Care Provider [phone] Encounter Details Date Type Department Care Team (Late st Contact Info) Description 01/13/2025 Orders Only [facility]ED[facility] 505 [place], [place] [phone] Reuben Johnson MD 505 [place] [address] Gynecomastia, male (Primary Dx) Social History Tobacco Use Types [...] Care Team (Late st Contact Info) Description 04/21/2025 1:00 PM EDT Office Visit [facility] 505 [place] [address] Reuben Johnson MD 505 [place] [address] Scheduled Orders Name Type Priority Associated Diagnoses Orde r Schedule Testosterone, Free (Dialysis) And Total, MS Lab Routine Gynecomastia, male Expected: 01/13/2025 (Approximate), Expires: 01/13/2026 documented as of this encounter Visit Diagnoses Diagnosis Gynecomastia, male- Primary Hypertrophy of breast documented in this encounter Additional Health Concerns Assessment Noted Time PHQ-9 Depression Total Score: 0 01/03/20 25 1:33 PM EDT documented as of this encounter Care Teams Kinder Teacher Relationship Specialty Start Date End Date Reuben Johnson MD 505 [place] [address] PCP - General Internal Medicine 03/08/21 documented as of this encounter
--- OUTSIDE RECORDS SUMMARY | 2025-01-14 10:45 | XMS_ITS | Encounter Summary ---
Author Organization [employer] [facility] Address [address] [place] [address] Care Team Providers Care Sanitation Worker Name Role Phone Reuben Johnson MD Primary Care Provider [phone] Reason for Visit * Reason Comments Med Refill Encounter Details Date Type Department Care Team ([facility] Contact Info) Description 11/16/[address] [facility] PED[facility] 505 [place] [address] Reuben Johnson MD 505 [place] [address] Venous insufficiency (chronic) (peripheral) Social History Tobacco [...] Care Team ([facility] Contact Info) Description 04/21/2025 1:00 PM EDT Office Visit [facility] 505 [place] [address] Reuben Johnson MD 505 [place] [address] documented as of this encounter Visit Diagnoses Diagnosis Venous insufficiency (chronic) (peripheral) Unspecified venous (peripheral) insufficiency documented in this encounter Care Teams Sanitation Worker Relationship Specialty Start Date End Date Reuben Johnson MD [address] [place] [address] PCP - General Internal Medicine 03/08/21 documented as of this encounter
--- OUTSIDE RECORDS SUMMARY | 2025-01-14 10:45 | XMS_ITS | Encounter Summary ---
Author Organization [employer] Address [address] [facility] 7t [place] [address] Care Team Providers Care High School Agriculture Teacher Name Role Phone Reuben Johnson MD Primary Care Provider [phone] Encounter Details Date Type Department Care Team (Latest Contact Info) Description 01/09/2025 Travel Social History Tobacco Use Types Packs/Day [...] Description 04/21/2025 1:00 PM EDT Office Visit [facility] PEDS 505 [place] [address] Reuben Johnson MD 505 [place] [address] documented as of this encounter Visit Diagnoses Not on filedocumented in this encounter Additional Health Concerns Assessment Noted Time PHQ-9 Depression Total Score: 0 01/03/20 25 1:33 PM EDT documented as of this encounter Care Teams High School Agriculture Teacher Relationship Specialty Start Date End Date Reuben Johnson MD 505 [place] [address] PCP - General Internal Medicine 03/08/21 documented as of this encounter
--- OUTSIDE RECORDS SUMMARY | 2025-01-14 10:45 | XMS_ITS | Encounter Summary ---
Author Organization [employer] Address 75 [facility] 7t [place] [address] Care Team Providers Care Erp Project Manager Name Role Phone Reuben Johnson MD Primary Care Provider [phone] Reason for Visit * Reason Comments Hypertension Encounter Details Date Type Department Care Team (Latest Contact Info) Description 01/09/2025 1:00 PM EDT Clinical Support [facility] [address] [place], [place] [phone] Andria Marcelo RN Primary hypertension [I10] Social History Tobacco Use Types Packs/Day Years [...] Pulse 62 01/09/2025 1:21 PM EDT Temperature - - Respiratory Rate - - Oxygen Saturation - - Inhaled Oxygen Concentration - - Weight - - Height - - Body Mass Index - - documented in this encounter Progress Notes * Andria Marcelo, PREETHI - 01/09/2025 1:00 PM EDT SUBJECTIVE: Remy Kaufman is a 69 y.o. year old male who presents for Hypertension Recommendations at last visit were eat breakfast or meal in morning before taking his morning medications. Today, Remy Kaufman does not complain of any blurred vision, shortness of breath, chest pain, dizziness, or headaches. Santiago stated since 01/03/25 he has been eating breakfast of 1 soft boiled egg with salt and pepper,and ham. Since eating breakfast daily, Santiago denies any dizziness after taking meds. Current Outpatient Medications Medication Sig Dispense Refill amLODIPine (Norvasc) 5 [...] THREE TIMES A DAY 90 tablet 0 ibuprofen 800 MG tablet Take 1 tablet (800 mg) by mouth 3 times daily. 30 tablet 0 lisinopril 10 MG tablet Take [...] topically 2 times daily. 15 g 1 No current facility-administered medications for this visit. Patient Active Problem List Diagnosis Date Noted Benign prostatic hyperplasia 03/08/2021 Hypercholesterolemia 03/08/2021 Hypertensive disorder 03/08/2021 Patient has no known allergies. Remy Kaufman does confirm adherence to medications for hypertension listed above. Confirmed medications taken today [x] Social History Tobacco Use Smoking Status Every Day Types: Cigarettes Smokeless Tobacco Never Social History Substance and Sexual Activity Alcohol Use None Social History Substance and Sexual Activity Drug Use Not on file BP Readings from Last 4 Encounters: 01/09/25 136/82 01/02/25 139/78 11/19/24 (!) 141/79 02/09/23 132/88 Pulse Readings from Last 4 Encounters: 01/09/25 62 01/02/25 85 11/19/24 76 02/09/23 72 OBJECTIVE: Vitals: 01/09/25 1321 BP: 136/82 BP Location: Left arm Patient Position: Sitting BP Cuff Size: Large adult Pulse: 62 ASSESSMENT: Achieve goal blood pressure of <140/90 or <130/80 BP 136/82 Left arm. 132/72 Right arm. Heart rate 62 regular. Santiago is within his blood pressure goal Santiago complained of itchiness where he believes he had a bug bite under the outer corner of his right eye when doing yard work on Monday01/06/25. Denies vision loss, no drainage noted, local swelling noted, denies pain. PLAN: Remy Shae advised to continue taking medications as directed and reinforcement of lifestyle modifications including low sodium diet, Mr. Dash seasonings and exercise were reviewed. Author advised for pt to place warm face cloth over eye twice daily to reduce swelling. Advised notto scratch. Advised pt to contact office or to go to [facility] if swelling or drainage occur Remy Kaufman agreeable to plan discussed at today's visit. Future Appointments Date Time Provider Department Center 04/21/2025 1:00 PM Reuben Johnson MD [facility] Andria Marcelo, RN documented in this encounter Plan of Treatment Upcoming Encounters Date Type Department Care Team (Late st Contact Info) Description 04/21/2025 1:00 PM EDT Office Visit [facility] 505 [place] [address] Reuben Johnson MD 505 [place] [address] documented as of this encounter Visit Diagnoses Diagnosis Primary hypertension [I10] Unspecified essential hypertension documented in this encounter Additional Health Concerns Assessment Noted Time PHQ-9 Depression Total Score: 0 01/03/20 25 1:33 PM EDT documented as of this encounter Care Teams Erp Project Manager Relationship Specialty Start Date End Date Reuben Johnson MD 505 [place] [address] PCP - General Internal Medicine 03/08/21 documented as of this encounter
--- OUTSIDE RECORDS SUMMARY | 2025-01-14 10:45 | XMS_ITS | Encounter Summary ---
Author Organization [employer] Address [address] [facility] 7 [place] [address] Care Team Providers Care Chief Of Service Name Role Phone Reuben Johnson MD Primary Care Provider [phone] Reason for Visit * Reason Onset Date Comments Results 01/13/2025 Encounter Details Date Type Department Care Team ([facility] st Contact Info) Description 01/13/2025 Telephone [facility] PEDS 505 [place] [address] Reuben Johnson MD [address] [place] [address] Results Social History Tobacco Use Types Packs/Day Years [...] AM EDT documented as of this encounter Miscellaneous Notes * Telephone Encounter - Andria Marcelo RN - 01/13/2025 2:36 PM EDT Pt walked into [facility] to ask for results because he got a voicemail. Author reviewed testosterone results and recommendations for repeat lab with pt. Pt verbalized understanding and agreement with plan. * Telephone Encounter - Ashley Macias RN - 01/13/2025 1:18 PM EDT TC to pt. No answer voicemail left with clinic number to call back. documented in this encounter Plan of Treatment Upcoming Encounters Date Type Department Care Team (Late st Contact Info) Description 04/21/2025 1:00 PM EDT Office Visit [facility] MED & PEDS [address] [place] [address] Reuben Johnson MD [address] [place] [address] documented as of this encounter Visit Diagnoses Not on filedocumented in this encounter Additional Health Concerns Assessment Noted Time PHQ-9 Depression Total Score: 0 01/03/20 25 1:33 PM EDT documented as of this encounter Care Teams Chief Of Service Relationship Specialty Start Date End Date Reuben Johnson MD [address] [place] [address] PCP - General Internal Medicine 03/08/21 documented as of this encounter
--- OUTSIDE RECORDS SUMMARY | 2025-01-14 10:45 | XMS_ITS | Encounter Summary ---
Author Organization [employer] Address [address] [place] [address] 7 [place] [address] Care Team Providers Care Poacher Operator Name Role Phone Reuben Johnson MD Primary Care Provider [phone] Encounter Details Date Type Department Care Team ([facility] Contact Info) Description 11/11/2022 Orders Only [facility] MEDICINE [address] [place], [place] [phone] Reuben Johnson MD [address] [place], [place] [phone] Low back pain at multiple sites (Primary [...] Description 04/21/2025 1:00 PM EDT Office Visit [facility] MED & PEDS 505 [place], [place] [phone] Reuben Johnson MD [address] [place], [place] [phone] Scheduled Orders Name Type Priority Associated Diagnoses Orde r Schedule MR Thoracic Spine w/o Contrast Imaging Routine Low back pain at multiple sites Expected: 11/16/2022, Expires: 11/16/2023 documented as of this encounter Visit Diagnoses Diagnosis Low back pain at multiple sites- Primary documented in this encounter Care Teams Poacher Operator Relationship Specialty Start Date End Date Reuben Johnson MD [address] [place] [address] PCP - General Internal Medicine 03/08/21 documented as of this encounter
--- OUTSIDE RECORDS SUMMARY | 2025-01-14 10:45 | XMS_ITS | Encounter Summary ---
Author Organization [employer] [facility] Address [address] [place] [address] Care Team Providers Care Distillery Worker Name Role Phone Reuben Johnson MD Primary Care Provider [phone] Reason for Visit * Reason Comments Med Refill Encounter Details Date Type Department Care Team ([facility] Contact Info) Description 11/12/2024 Refill [facility] MED & PEDS [address] [place] [address] Reuben Johnson MD [address] [place] [address] Benign prostatic hyperplasia with lower urinary tract [...] Upcoming Encounters Date Type Department Care Team ([facility] Contact Info) Description 04/21/2025 1:00 PM EDT Office Visit [facility] MED & PEDS 505 [place] [address] Reuben Johnson MD 505 [place] [address] documented as of this encounter Visit Diagnoses Diagnosis Benign prostatic hyperplasia with lower urinary tract symptoms documented in this encounter Care Teams Distillery Worker Relationship Specialty Start Date End Date Reuben Johnson MD [address] [place] [address] PCP - General Internal Medicine 03/08/21 documented as of this encounter
[2025-01-19 12:24] LABS: Testosterone, Free 30.7 pg/mL (35.0-155.0); Testosterone, Total 222 ng/dL (250-1100)
== END 2025-01-14 09:33 | disposition home or self-care (01) ==
LOC: HO.CHCLDS 09:32
PROVIDERS: Visit Provider Internal Medicine
DX: N62 Hypertrophy of breast (principal)
CPT/HCPCS: 36415; 84402; 84403

== ENCOUNTER 2025-02-03 13:12 | Outpatient (AMB) | payer MEDICARE, SELFPAY ==
[2025-02-03 13:18] VITALS: BP 138/80; PULSE 74; O2SAT 96; BMI 34.2
--- NOTE | 2025-02-03 13:18 | MHC.OFFVIS ---
Vital Signs 02/03/25 13:18 Height 5 ft 7 in Weight 218 lb 4.122 oz BMI 34.2 BP 138/80 Blood Pressure Location Rt brachial Position Sitting Pulse 74 Pulse Source Pulse Oximeter Pulse Oximetry (%) 96 Oxygen Delivery Method Room Air Intake Visit Reasons: Hypogonadism, gynecomastia Accompanied by: Self / Same As Patient Allergies lisinopril Allergy (Severe, Verified 02/03/25 13:19) Angioedema Medication List - Last Reconciled 02/03/25 by Caleb Vásquez MD amlodipine 5 mg PO DAILY atenolol 50 mg PO DAILY diphenhydramine HCl (Benadryl) 50 mg (2 x 25 mg) PO Q6-8H 3 days famotidine (Pepcid) 40 mg PO DAILY hydrochlorothiazide 25 mg PO DAILY omeprazole 20 mg PO DAILY phenazopyridine 100 mg PO TID 4 days simvastatin 40 mg PO BEDTIME tamsulosin 0.4 mg PO BEDTIME HPI Comments Details: The patient is a 70-year-old male presenting with breast development, gynecomastia noted onset two months ago. There is associated tenderness with pressure on the left nipple, but no past testosterone imbalance issues were flagged. The patient takes Tamsulosin for benign prostatic hyperplasia and denies changes in erectile function or libido. Additional concerns include increased frequency of urination, episodic dizziness in the morning, and mild recent weight gain. The patient consumes alcohol and tobacco socially. Occupational history included working with machinery, correlating with persistent tinnitus concern. No testicular symptoms are evident, and there are no fertility issues recorded. 70 YO Male who is seen in consultation at the request of his PCP for Hypogonadism and gynecomastia .First noticed few mos a go First diagnosed with Hypogonadism as above with labs revealing low testosterone and borderline high estridiol levels . Not Was started on Testosterone supplementation Currently not achieving spontaneous am erections, and unable to achieve erection when desired. Reports low libido. Decreased facial hair and shaving frequency. Denies any change in size or shape of testicles. Denies penile discharge or scrotal tenderness. Denies any history of mumps orchitis. Denies any head trauma. Denies history of KENYON but snores at night . with 3 children who were conceived spontaneously. Sense of smell intact. Denies headache or visual changes, +gynecomastia but no galactorrhea. Denies orthostatic symptoms, weight loss. Denies change in size of hands or feet. Denies hair loss, weight gain, cold intolerance. History of DVT or PE: No Has a histoty of 4 drinks /day. Smokes few cigs/ day Worked as a truck loader and unloader , process machine operator Labs: T=222. nl prolactin, normal beta-hCG, LH equals 2.9 PSA CBC [facility] Medical History (Updated 02/03/25 @ 13:20 by Caleb Vásquez MD) Gynecomastia Hyperlipemia Right rib fracture Hypertension Surgical History (System 01/07/25 @ 13:21 by Magdalene Joy) No pertinent past surgical history Family History (System 01/07/25 @ 13:21 by Magdalene Joy) Father Cancer Mother Arthritis Social History (System 01/07/25 @ 13:21 by Magdalene Joy) Alcohol intake: current Alcohol intake frequency: 0-2 drinks per day Alcohol type: beer and hard liquor Physical Exam Vital Signs: BMI result Body Mass Index 34.2 Const Other: There was no unicortical proportions. Thyroid gland is normal size weighs about 15 g . We are no thyroid nodules palpated . Examination of the chest reveals small amt of l breast tissue . No discharge Examination of the genitalia reveals small soft testes. No masses Assessment & Plan Assessment & Plan (1) Gynecomastia: Code(s): N62 - Hypertrophy of breast Category: Medical Plan: This is a 70-year-old white male with a history of gynecomastia found to have low testosterone. . He has had a negative workup thus far except for a mildly elevated estradiol level. LH level is inappropriately normal. Beta-hCG is normal The plan is to complete the workup by rechecking in a.m. testosterone level along with an FSH. If FSH is inappropriately normal, we will consider MRI of the pituitary. We will also obtain a mammogram . We will also obtain a testicular ultrasound to rule out a testicular tumor although doubt with normal hCG. Assuming above workup is negative, if no contraindication could use low-dose transdermal testosterone which might help with the gynecomastia. 1. Gynecomastia A comprehensive plan is established to assess the underlying etiology of gynecomastia through repeat testosterone measurement, mammography, and conditional pituitary imaging if indicated. Possible testosterone therapy has been considered, pending additional testing outcomes. 2. Low Testosterone Level A follow-up of testosterone levels accompanied by additional pituitary diagnostics would be pivotal, with therapeutic strategies potentially including testosterone supplements contingent upon confirmation of systemic deficiencies. 3. Alcohol Use Disorder Addressing alcohol consumption as a possible factor in elevated estrogen levels, recommendations are made to reduce intake which may benefit overall endocrinological balance. Through thorough discussion with the patient, the presence of gynecomastia was linked to low testosterone and potentially elevated estrogen levels secondary to alcohol use. The explanation encompassed the pathophysiology of breast tissue development concerning hormonal imbalance and the potential need for additional diagnostic studies including repeat testosterone, mammogram, and possibly pituitary MRI if indicated. Options of lifestyle modification, including alcohol moderation, were discussed and emphasized. The potential risks and side effects of testosterone therapy, including exacerbation of benign prostatic hyperplasia and sleep apnea considerations, were discussed in detail. Upcoming follow-ups will focus on evaluating initial test results and further diagnostic considerations. - Repeat the testosterone level blood test in the morning; fasting is required. - Expect and attend scheduled mammogram and ultrasound of testes. - Limit alcohol intake and stop smoking to aid in managing hormone levels. - Report any troubling new symptoms such as changes in vision or severe dizziness immediately. - Expect a follow-up appointment in approximately two months for results discussion. - The patient had an opportunity to ask questions regarding treatment plan. The patient expressed understanding and agreement with the above treatment plan. Patient was informed and verbally consented to the use of an ambient scribe for clinic note documentation during this visit. Orders: Orders Testosterone, Free/Total Today N62 - Hypertrophy of breast US scrotum Today R79.89 - Other specified abnormal findings of blood chemistry Follicle Stimulating Hormone Today N62 - Hypertrophy of breast MM tomosynthesis added views L Today N62 - Hypertrophy of breast Coding Level of Care Code New Pt Level 4 (57144) Diagnoses Gynecomastia N62
--- OUTSIDE RECORDS SUMMARY | 2025-02-03 14:35 | XMS_ITS | Encounter Summary ---
Author Organization [employer] Address [address] [place] [address] [address] [place] [address] Care Team Providers Care Music Autographer Name Role Phone Reuben Johnson MD Primary Care Provider [phone] Encounter Details Date Type Department Care Team ([facility] Contact Info) Description 02/22/2023 Orders Only [facility] MED & PEDS [address] [place], [place] [phone] Reuben Johnson MD [address] [place], [place] [phone] Low back pain at multiple sites (Primary [...] Upcoming Encounters Date Type Department Care Team ([facility] Contact Info) Description 04/21/2025 1:00 PM EDT Office Visit [facility] MED & PEDS [address] [place], [place] [phone] Reuben Johnson MD [address] [place], [place] [phone] documented as of this encounter Visit Diagnoses Diagnosis Low back pain at multiple sites- Primary documented in this encounter Care Teams Music Autographer Relationship Specialty Start Date End Date Reuben Johnson MD [address] [place] [address] PCP - General Internal Medicine 03/08/21 documented as of this encounter
--- OUTSIDE RECORDS SUMMARY | 2025-02-03 14:35 | XMS_ITS | Encounter Summary ---
Author Organization [employer] Address [address] [place] [address] 7 [place] [address] Care Team Providers Care Design Teacher Name Role Phone Reuben Johnson MD Primary Care Provider [phone] Encounter Details Date Type Department Care Team ([facility] Contact Info) Description 11/11/2022 Orders Only [facility] MEDICINE [address] [place], [place] [phone] Reuben Johnson MD [address] [place], [place] [phone] Low back pain at multiple sites (Primary [...] Upcoming Encounters Date Type Department Care Team ([facility] Contact Info) Description 04/21/2025 1:00 PM EDT Office Visit [facility] MED & PEDS [address] [place], [place] [phone] Reuben Johnson MD [address] [place], [place] [phone] Scheduled Orders Name Type Priority Associated Diagnoses Orde r Schedule MR Thoracic Spine w/o Contrast Imaging Routine Low back pain at multiple sites Expected: 11/16/2022, Expires: 11/16/2023 documented as of this encounter Visit Diagnoses Diagnosis Low back pain at multiple sites- Primary documented in this encounter Care Teams Design Teacher Relationship Specialty Start Date End Date Reuben Johnson MD [address] [place] [address] PCP - General Internal Medicine 03/08/21 documented as of this encounter
--- OUTSIDE RECORDS SUMMARY | 2025-02-03 14:35 | XMS_ITS | Encounter Summary ---
Author Organization [employer] Address [address] [facility] 7 [place] [address] Care Team Providers Care Blockers Skiver Name Role Phone Reuben Johnson MD Primary Care Provider [phone] Reason for Visit * Reason Onset Date Comments Care Coordination 01/31/2025 Encounter Details Date Type Department Care Team ([facility] st Contact Info) Description 01/31/2025 Telephone [facility] MED & PEDS [address] [place] [address] Reuben Johnson MD [address] [place] [address] Care Coordination Social History Tobacco Use Types Packs/Day Years [...] encounter Miscellaneous Notes * Telephone Encounter - Ashley Macias RN - 01/31/2025 3:00 PM EDT Message from Dr. Johnson: [facility] was called to get the code of the US needed. No answer. A message was left. I also order 2 US of the breast hoping that's the right ones needed. TC to [facility] women[facility] clinic RN confirmed that the US that were ordered are now the correct ones. documented in this encounter Plan of Treatment Upcoming Encounters Date Type Department Care Team (Late st Contact Info) Description 04/21/2025 1:00 PM EDT Office Visit [facility] MED & PEDS [address] [place] [address] Reuben Johnson MD [address] [place] [address] documented as of this encounter Visit Diagnoses Not on filedocumented in this encounter Additional Health Concerns Assessment Noted Time PHQ-9 Depression Total Score: 0 01/03/20 25 1:33 PM EDT documented as of this encounter Care Teams Blockers Skiver Relationship Specialty Start Date End Date Reuben Johnson MD [address] [place] [address] PCP - General Internal Medicine 03/08/21 documented as of this encounter
--- OUTSIDE RECORDS SUMMARY | 2025-02-03 14:35 | XMS_ITS | Encounter Summary ---
Author Organization [employer] [facility] Address [address] [place] [address] Care Team Providers Care Butcher'S Assistant Name Role Phone Reuben Johnson MD Primary Care Provider [phone] Reason for Visit * Reason Comments Med Refill Encounter Details Date Type Department Care Team ([facility] Contact Info) Description 11/16/2024 Refill [facility] MED & PEDS [address] [place] [address] Reuben Johnson MD [address] [place] [address] Venous insufficiency (chronic) (peripheral) Social History Tobacco [...] Upcoming Encounters Date Type Department Care Team ([facility] Contact Info) Description 04/21/2025 1:00 PM EDT Office Visit [facility] MED & PEDS [address] [place] [address] Reuben Johnson MD [address] [place] [address] documented as of this encounter Visit Diagnoses Diagnosis Venous insufficiency (chronic) (peripheral) Unspecified venous (peripheral) insufficiency documented in this encounter Care Teams Butcher'S Assistant Relationship Specialty Start Date End Date Reuben Johnson MD [address] [place] [phone] PCP - General Internal Medicine 03/08/21 documented as of this encounter
--- OUTSIDE RECORDS SUMMARY | 2025-02-03 14:35 | XMS_ITS | Encounter Summary ---
Author Organization [facility] [employer] Address [address] [place] [address], [place] [address] Care Team Providers Care Small Craft Operator Name Role Phone Reuben Johnson MD Primary Care Provider [phone] Reason for Referral * Imaging (Routine) - Authorized Specialty Diagnoses / Procedures Referred By Contac t Referred To Contact Radiology Diagnoses Gynecomastia, male Procedures BI US Breast Limited Right Reuben Johnson MD [address] [place] [address] Phone: tel: fax: [address] Phone: tel: fax: Referral ID Status Reason Start Date Expiration Date V isits Requested Visits Authorized [id number] Authorized 01/29/2025 01/29/2026 1 1 * Imaging (Routine) - Authorized Specialty Diagnoses / Procedures Referred By Contac t Referred To Contact Radiology Diagnoses Gynecomastia, male Procedures BI US Breast Limited Left Reuben Johnson MD [address] [place] [address] Phone: tel: fax: [address] Phone: tel: fax: Referral ID Status Reason Start Date Expiration Date V isits Requested Visits Authorized [id number] Authorized 01/29/2025 01/29/2026 1 1 Encounter Details Date Type Department Care Team (Late st Contact Info) Description 01/29/2025 Orders Only [facility] CH[facility] MED & PEDS [address] [place] [address] Reuben Johnson MD [address] [place] [address] Gynecomastia, male (Primary Dx) Social History Tobacco [...] [facility] MED & PEDS [address] [place] [address] Reuben Johnson MD [address] [place] [address] Scheduled Orders Name Type Priority Associated Diagnoses Orde r Schedule BI US Breast Limited Left Imaging Routine Gynecomastia, male Expected: 01/29/2025, Expires: 01/29/2026 BI US Breast Limited Right Imaging Routine Gynecomastia, male Expected: 01/29/2025, Expires: 01/29/2026 documented as of this encounter Visit Diagnoses Diagnosis Gynecomastia, male- Primary Hypertrophy of breast documented in this encounter Additional Health Concerns Assessment Noted Time PHQ-9 Depression Total Score: 0 01/03/20 25 1:33 PM EDT documented as of this encounter Care Teams Small Craft Operator Relationship Specialty Start Date End Date Reuben Johnson MD [address] [place] [address] PCP - General Internal Medicine 03/08/21 documented as of this encounter
--- OUTSIDE RECORDS SUMMARY | 2025-02-03 14:35 | XMS_ITS | Encounter Summary ---
Author Organization [employer] Address [address] [place] [address] Care Team Providers Care Scoop Operator Name Role Phone Reuben Johnson MD Primary Care Provider [phone] Reason for Referral * Consultation (Routine) - Authorized Specialty Diagnoses / Procedures Referred By Gerson bailey Referred To Contact Endocrinology Diagnoses Gynecomastia, male Hypogonadism in male Reuben Johnson MD [address] [place] [address] Phone: tel: fax: [facility] [place] [address] [place] [address] Phone: tel: fax: Referral ID Status Reason Start Date Expiration Date Visits Requested Visits Authorized [id number] Authorized Specialty Services Required 01/21/2025 01/21/2026 1 1 Encounter Details Date Type Department Care Team (Late st Contact Info) Description 01/13/2025 Orders Only [facility] CHC MED & PEDS [address] [place], [place] [phone] Reuben Johnson MD [address] [place], [place] [phone] Gynecomastia, male (Primary Dx); Hypogonadism in male Social History Tobacco Use Types Packs/Day Years [...] Upcoming Encounters Date Type Department Care Team ([facility] st Contact Info) Description 04/21/2025 1:00 PM EDT Office Visit [facility] CH[facility] MED & PEDS [address] [place] [address] Reuben Johnson MD [address] [place] [address] Scheduled Referrals Name Type Priority Associated Diagnoses Order Schedule Referral to Endocrinology Outpatient Referral Routine Gynecomastia, male Hypogonadism in male Expected: 01/21/2025 (Approximate), Expires: 01/21/2026 documented as of this encounter Procedures Procedure Name Priority Date/Time Associated Diagnosis Comments TESTOSTERONE, FREE (DIALYSIS) AND TOTAL,MS Routine 01/14/2025 9:33 AM EDT Gynecomastia, male documented in this encounter Results * (ABNORMAL) Testosterone, Free (Dialysis) And Total, MS (01/14/2025 9:33 AM EDT) Testosterone, Total 222(A) 250 - 1100 ng/dL [facility] Comment:Men with clinically significant hypogonadal symptoms and testosterone valuesrepeatedly in the range of the 200-300 ng/dL or less, may benefit fromtestosterone treatment after adequate risk and benefits counseling.For additional information, please refer tohttps://education.[employer]/faq/DGQ826(This link is being provided for informational/educational purposes only.)(Note)This test was developed and its analytical performancecharacteristics have been determined by [employer]. It hasnot been cleared or approved by the FDA. This assay hasbeen validated pursuant to the CLIA regulations and isused for clinical purposes. Testosterone, Free 30.7(A) 35.0 - 155.0 pg/mL [facility] Comment:(Note)This test was developed and its analytical performancecharacteristics have been determined by [employer]. It hasnot been cleared or approved by the FDA. This assay hasbeen validated pursuant to the CLIA regulations and isused for clinical purposes.[facility] [id number] [place] [address],[address] [place] [address] [phone] Romain Le MD, PhDTHIS TEST WAS PERFORMED AT:[id number] [place] [address] [place] [phone] LE MD,PHD Blood Venous blood specimen / Unknown 01/14/2025 9:33 AM EDT 01/14/2025 2:33 PM EDT us Reuben Johnson MD LAB BLOOD ORDERABLES Final Result [facility] [address] [place] [phone] documented in this encounter Visit Diagnoses Diagnosis Gynecomastia, male- Primary Hypertrophy of breast Hypogonadism in male documented in this encounter Additional Health Concerns Assessment Noted Time PHQ-9 Depression Total Score: 0 01/03/20 25 1:33 PM EDT documented as of this encounter Care Teams Scoop Operator Relationship Specialty Start Date End Date Reuben Johnson MD [address] [place] [address] PCP - General Internal Medicine 03/08/21 documented as of this encounter
--- OUTSIDE RECORDS SUMMARY | 2025-02-03 14:35 | XMS_ITS | Encounter Summary ---
Author Organization [employer] [facility] Address [address] [place] [address] Care Team Providers Care Supervisor Personnel Clerks Name Role Phone Reuben Johnson MD Primary Care Provider [phone] Reason for Visit * Reason Comments Med Refill Encounter Details Date Type Department Care Team ([facility] Contact Info) Description 11/11/2024 Refill [facility] MED & PEDS [address] [place] [address] Reuben Johnson MD [address] [place] [address] Venous insufficiency (chronic) (peripheral) Social History Tobacco [...] Upcoming Encounters Date Type Department Care Team ([facility] Contact Info) Description 04/21/2025 1:00 PM EDT Office Visit [facility] MED & PEDS [address] [place] [address] Reuben Johnson MD [address] [place] [address] documented as of this encounter Visit Diagnoses Diagnosis Venous insufficiency (chronic) (peripheral) Unspecified venous (peripheral) insufficiency documented in this encounter Care Teams Supervisor Personnel Clerks Relationship Specialty Start Date End Date Reuben Johnson MD [address] [place] [address] PCP - General Internal Medicine 03/08/21 documented as of this encounter
--- OUTSIDE RECORDS SUMMARY | 2025-02-03 14:35 | XMS_ITS | Clinical Summary ---
Author Organization [employer] Address [address] [facility] 7t [place] [address] Care Team Providers Care Manager Flight Name Role Phone Reuben Johnson MD Primary Care Provider [phone] Allergies No known active allergies Medications lisinopril 10 MG tablet Take 1 tablet by mouth at bed time. Active methocarbamol (Robaxin) 750 MG tabletIndications: Low back pain at multiple sites Take 1 tablet (750 mg) by mouth 4 times daily for 10 days. 40 tablet 3 Active ibuprofen 800 MG tablet TAKE 1 TABLET BY MOUTH THREE TIMES A DAY 90 tablet 4 Active simvastatin (Zocor) 40 MG tabletIndications: Mixed hyperlipidemia TAKE 1 TABLET BY MOUTH EVERY DAY IN THE EVENING 90 tablet 3 4 Active triamcinolone (Kenalog) 0.5 % creamIndications:V enous insufficiency (chronic) (peripheral),Liche n simplex chronicus Apply topically 2 times daily. 15 g 1 5 Active hydroCHLOROthiazid e (HYDRODiuril) 25 MG tablet TAKE 1 TABLET BY MOUTH EVERY DAY IN THE MORNING 90 tablet 1 5 Active atenolol (Tenormin) 50 MG tablet TAKE 1 TABLET BY MOUTH EVERY DAY IN THE MORNING 90 tablet 5 Active tamsulosin (Flomax) 0.4 MG 24 hr capsuleIndications :Benign prostatic hyperplasia with lower urinary tract symptoms TAKE 1 CAPSULE BY MOUTH EVERY DAY 90 capsule 1 5 Active amLODIPine (Norvasc) 5 MG tabletIndications: Essential (primary) hypertension TAKE 1 TABLET BY MOUTH EVERY DAY 90 tablet 3 5 Active ibuprofen 800 MG tabletIndications: Gynecomastia, male Take 1 tablet (800 mg) by mouth 3 times daily. 30 tablet 025 Active Problems Problem Noted Date Diagnosed Date Benign prostatic hyperplasia 03/08/2021 Hypercholesterolemia 03/08/2021 Hypertensive disorder 03/08/2021 Encounters Date Type Department Care Team Description 01/31/2025 Telephone [facility] [address] [place] [address] Reuben Johnson MD Care Coordination 01/29/2025 Orders Only [facility] [address] [place] [address] Reuben Johnson MD Gynecomastia, male (Primary Dx) 2025 Telephone [facility] [address] [place] [address] Reuben Johnson MD Results 01/22/2025 Telephone [facility] [address] [place] [address] Reuben Johnson MD Results; Referral 01/17/2025 Telephone [facility] [address] [place] [address] Reuben Johnson MD Results 01/13/2025 Telephone [facility] [address] [place] [address] Reuben Johnson MD Results 01/13/2025 Orders Only [facility] [address] [place] [address] Reuben Johnson MD Gynecomastia, male (Primary Dx); Hypogonadism in male 01/09/2025 1:00 PM EDT Clinical Support [facility] [address] [place] [address] Andria Marcelo RN Primary hypertension [I10] 01/09/2025 Travel 01/03/2025 Telephone [facility] [address] [place] [address] Reuben Johnson MD 01/03/2025 Telephone [facility] [address] [place] [address] Reuben Johnson MD Medication Question 01/02/2025 1:00 PM EDT Office Visit [facility] [address] [place] [address] Reuben Johnson MD Primary hypertension (Primary Dx); Lichen simplex chronicus; Gynecomastia, male; Dietary counseling; Exercise counseling; Class 2 severe obesity due to excess calories with serious comorbidity and body mass index (BMI) of 35.0 to 35.9 in adult ([facility]) 01/02/2025 Travel 12/28/2024 Refill [facility] [address] [place] [address] Reuben Johnson MD Essential (primary) hypertension 12/14/2024 Refill [facility] [address] [place] [address] Reuben Johnson MD Benign prostatic hyperplasia with lower urinary tract symptoms 11/25/2024 Telephone [facility] [address] [place] [address] Reuben Johnson MD Med Refill 11/23/2024 Refill [facility] [address] [place] [address] Reuben Johnson MD 11/19/2024 1:00 PM EST Office Visit [facility] [address] [place] [address] Va Santo MD Lichen simplex chronicus (Primary Dx); Venous insufficiency (chronic) (peripheral) 11/19/2024 Travel 11/16/2024 Refill [facility] [address] [place] [address] Reuben Johnson MD Venous insufficiency (chronic) (peripheral) 11/15/2024 Travel 11/12/2024 Refill [facility] [address] [place] [address] Reuben Johnson MD Benign prostatic hyperplasia with lower urinary tract symptoms 11/11/2024 Refill [facility] [address] [place] [address] Reuben Johnson MD Venous insufficiency (chronic) (peripheral) from Last 3 Months Immunizations Name Administration Dates Next Due Nadiraa Covid-19 Vaccine 12+ 10/11/2021,09/13/20 21 Zoster, Unspecified [...] Upcoming Encounters Date Type Department Care Team ([facility] st Contact Info) Description 04/21/2025 1:00 PM EDT Office Visit [facility] [address] [place], [place] [phone] Reuben Johnson MD [address] [place], [place] [phone] Health Maintenance Due Date Last Done Comments [...] Routine 01/14/2025 9:33 AM EDT Gynecomastia, male ESTRADIOL Routine 01/03/2025 8:55 AM EDT Gynecomastia, male TESTOSTERONE, FREE (DIALYSIS) AND TOTAL,MS Routine 01/03/2025 8:55 AM EDT Gynecomastia, male LH Routine 01/03/2025 8:55 AM EDT Gynecomastia, male HCG, TOTAL, QN Routine 01/03/2025 8:53 AM EDT Gynecomastia, male LIPID PANEL, STANDARD Routine 03/02/2022 11:11 AM EDT from Last 3 Months or Most Recently Relevant to Health Maintenance Results * (ABNORMAL) Testosterone, Free (Dialysis) And Total, MS (01/14/2025 9:33 AM EDT) Only the most recent of2 resultswithin the time period is included. Testosterone, Total 222(A) 250 - 1100 ng/dL [facility] Comment:Men with clinically significant hypogonadal symptoms and testosterone valuesrepeatedly in the range of the 200-300 ng/dL or less, may benefit fromtestosterone treatment after adequate risk and benefits counseling.For additional information, please refer tohttps://education.[employer]/faq/UEO474(This link is being provided for informational/educational purposes only.)(Note)This test was developed and its analytical performancecharacteristics have been determined by [employer]. It hasnot been cleared or approved by the FDA. This assay hasbeen validated pursuant to the CLIA regulations and isused for clinical purposes. Testosterone, Free 30.7(A) 35.0 - 155.0 pg/mL [facility] Comment:(Note)This test was developed and its analytical performancecharacteristics have been determined by [employer]. It hasnot been cleared or approved by the FDA. This assay hasbeen validated pursuant to the CLIA regulations and isused for clinical purposes.[address]ed [id number] [place] [address],[address] [place] [address] [phone] Romain Le MD, PhDTHIS TEST WAS PERFORMED AT:[place] [address] [place] [phone] LE MD,PHD Blood Venous blood specimen / Unknown 01/14/2025 9:33 AM EDT 01/14/2025 2:33 PM EDT Reuben Johnson MD LAB BLOOD ORDERABLES Final Result [facility] [address] [place], [place] [phone] * (ABNORMAL) Estradiol (01/03/2025 8:55 AM EDT) [facility] Estradiol Ultra Sensitive 30(A) < OR = 29 pg/mL [facility] Comment:This test was develo ped and its analytical performancecharacteristics have been determined by [employer].It has not been cleared or approved by the FDA. This assayhas been validated pursuant to the CLIA regulations and isused for clinical purposes.THIS TEST WAS PERFORMED AT:[employer] [id number] [place] [phone] CARRILLO MD,PHD,TANJA Blood Venous blood specimen / Unknown 01/03/2025 8:55 AM EDT 01/03/2025 1:57 PM EDT us Reuben Johnson MD LAB BLOOD ORDERABLES Final Result Performing Organization Address [facility] Co de Phone Number [facility] [address] [place] [phone] * LH (01/03/2025 8:55 AM EDT) Lutenizing Hormone 2.9 1.6 - 15.2 mIU/mL [facility] Comment:THIS TEST WAS PERFOR MED AT:[employer] [address] [phone] MONROY MD Blood Venous blood specimen / Unknown 01/03/2025 8:55 AM EDT 01/03/2025 1:57 PM EDT us Reuben Johnson MD LAB BLOOD ORDERABLES Final Result Performing Organization Address [facility] Co de Phone Number [facility] [address] [place] [phone] * hCG, Total, Quantitative (01/03/2025 8:53 AM EDT) HCG Quantitative <2 mIU/mL [facility] Blood Venous blood specimen / Unknown 01/03/2025 8:53 AM EDT 01/03/2025 1:57 PM EDT us Reuben Johnson MD LAB BLOOD ORDERABLES Final Result Performing Organization Address [facility] Co de Phone Number [facility] [address] [place] [phone] * LIPID PANEL, STANDARD (03/02/2022 11:11 [...] ?? LDL-C is now calculated using the Glen ?? calculation, which is a validated novel method providing ?? better accuracy than the Friedewald equation in the ?? estimation of LDL-C. ?? Jeff ANGELES et al. RAMIN. 2013;310(19): 0739-5140 ?? (http://education.Elevaate/faq/IRB188) Non-HDL Cholesterol 102 <130 mg/dL (calc) [facility] Comment: For patients with diabetes plus 1 major ASCVD risk ?? factor, treating to a non-HDL-C goal of <100 mg/dL ?? (LDL-C of <70 mg/dL) is considered a therapeutic ?? option. Triglycerides 138 <150 mg/dL [facility] 03/02/2022 11:1 1 AM EDT Reuben Johnson MD LAB BLOOD ORDERABLES Final Result [facility] [address] from Last 3 Months or Most Recently Relevant to Health Maintenance Insurance [employer] P[employer] [facility] FULL Care Teams Manager Flight Relationship Specialty Start Date End Date Reuben Johnson MD [address] [place] [address] PCP - General Internal Medicine 03/08/21
--- OUTSIDE RECORDS SUMMARY | 2025-02-03 14:35 | XMS_ITS | Encounter Summary ---
Author Organization [employer] [facility] Address [address] [place] [address] Care Team Providers Care Software Installation Engineer Name Role Phone Reuben Johnosn MD Primary Care Provider [phone] Reason for Visit * Reason Comments Med Refill Encounter Details Date Type Department Care Team ([facility] Contact Info) Description 11/12/2024 Refill [facility] [address] [place] [address] Reuben Johnson MD [address] [place] [address] Benign prostatic hyperplasia with lower urinary tract [...] Upcoming Encounters Date Type Department Care Team ([facility] Contact Info) Description 04/21/2025 1:00 PM EDT Office Visit [facility] [address] [place] [address] Reuben Johnson MD [address] [place] [address] documented as of this encounter Visit Diagnoses Diagnosis Benign prostatic hyperplasia with lower urinary tract symptoms documented in this encounter Care Teams Software Installation Engineer Relationship Specialty Start Date End Date Reuben Johnson MD [address] [place] [address] PCP - General Internal Medicine 03/08/21 documented as of this encounter
== END 2025-02-03 13:54 | disposition home or self-care (01) ==
LOC: HO.ENCR 13:12
PROVIDERS: PCP Internal Medicine; Visit Provider Internal Medicine Endocrinology, Diabetes & Metabolism
DX: N62 Hypertrophy of breast (principal)
CPT/HCPCS: 99204

== ENCOUNTER → 2025-02-03 13:12 | Outpatient (BNVA) | payer MEDICARE, SELFPAY | PROVIDERS: PCP Internal Medicine; Visit Provider Internal Medicine Endocrinology, Diabetes & Metabolism | DX: N62 Hypertrophy of breast (principal) | CPT/HCPCS: 99202 ==

== ENCOUNTER 2025-02-05 09:10 | Outpatient (REF) | payer MEDICARE, SELFPAY ==
[2025-02-06 08:49] LABS: Follicle Stimulating Hormone 2.3 mIU/mL (1.4-12.8)
[2025-02-09 15:54] LABS: Testosterone, Free 23.5 pg/mL (35.0-155.0); Testosterone, Total 194 ng/dL (250-1100)
== END 2025-02-05 09:11 | disposition home or self-care (01) ==
LOC: HO.CHCLDS 09:10
PROVIDERS: Visit Provider Internal Medicine Endocrinology, Diabetes & Metabolism
DX: N62 Hypertrophy of breast (principal)
CPT/HCPCS: 36415; 83001; 84402; 84403

== ENCOUNTER 2025-02-11 08:58 | Outpatient (REF) | payer MEDICARE, SELFPAY ==
--- OUTSIDE RECORDS SUMMARY | 2025-02-11 09:22 | XMS_ITS | Encounter Summary ---
Author Organization [employer] Address [address] [place] [address] Care Team Providers Care Rod Piler Name Role Phone Reuben Johnson MD Primary Care Provider [phone] Reason for Visit * Reason Comments Med Refill Encounter Details Date Type Department Care Team ([facility] Contact Info) Description 11/16/2024 Refill [facility] [address] [place] [address] Reuebn Johnson MD [address] [place] [address] Venous insufficiency (chronic) (peripheral) Social History Tobacco [...] Department Care Team (Late Contact Info) Description 04/21/2025 1:00 PM EDT Office Visit [facility] [address] [place] [address] Reuben Johnson MD [address] [place] [address] documented as of this encounter Visit Diagnoses Diagnosis Venous insufficiency (chronic) (peripheral) Unspecified venous (peripheral) insufficiency documented in this encounter Care Teams Rod Piler Relationship Specialty Start Date End Date Reuben Johnson MD [address] [place], [place] [address], [place] [address] PCP - General Internal Medicine 03/08/21 documented as of this encounter
--- OUTSIDE RECORDS SUMMARY | 2025-02-11 09:22 | XMS_ITS | Encounter Summary ---
Author Organization [employer] Address [address] [facility] 7t [place] [address] Care Team Providers Care Agency Sales Director Name Role Phone Reuben Johnson MD Primary Care Provider [phone] Reason for Visit * Reason Comments Med Refill Encounter Details Date Type Department Care Team ([facility] st Contact Info) Description 02/08/2025 Refill [facility] [address] [place] [address] Reuben Johnson MD [address] [place] [address] Mixed hyperlipidemia Social History Tobacco Use Types Packs/Day Years [...] Upcoming Encounters Date Type Department Care Team ([facility] st Contact Info) Description 04/21/2025 1:00 PM EDT Office Visit [facility] [address] [place] [address] Reuben Johnson MD [address] [place] [address] documented as of this encounter Visit Diagnoses Diagnosis Mixed hyperlipidemia documented in this encounter Additional Health Concerns Assessment Noted Time PHQ-9 Depression Total Score: 0 01/03/20 25 1:33 PM EDT documented as of this encounter Care Teams Agency Sales Director Relationship Specialty Start Date End Date Reuben Johnson MD [address] [place] [address] PCP - General Internal Medicine 03/08/21 documented as of this encounter
--- OUTSIDE RECORDS SUMMARY | 2025-02-11 09:22 | XMS_ITS | Clinical Summary ---
Author Organization [employer] Address [address] [facility] 7t [place] [address] Care Team Providers Care Wafer Cutter Name Role Phone Reuben Johnson MD Primary Care Provider [phone] Allergies No known active allergies Medications lisinopril [...] A DAY 90 tablet 10/19/19 24 Active triamcinolone (Kenalog) 0.5 % creamIndications: [...] DAY 90 tablet 3 12/31/19 25 Active simvastatin (Zocor) 40 MG tabletIndications :Mixed hyperlipidemia TAKE 1 TABLET BY MOUTH EVERY DAY IN THE EVENING 90 tablet 3 02/11/20 25 Active simvastatin (Zocor) 40 MG tabletIndications :Mixed hyperlipidemia TAKE 1 TABLET BY MOUTH EVERY DAY IN THE EVENING 90 tablet 3 04/16/20 24 025 Discontinued ibuprofen 800 MG tabletIndications :Gynecomastia, male Take 1 tablet (800 mg) by mouth 3 times daily. 30 tablet 01/03/20 25 025 Active Problems Problem Noted Date Diagnosed Date Benign prostatic hyperplasia 03/08/2021 Hypercholesterolemia 03/08/2021 Hypertensive disorder 03/08/2021 Encounters Date Type Department Care Team Description 02/08/2025 Refill [facility] [address] [place] [address] Reuben Johnson MD Mixed hyperlipidemia 01/31/2025 Telephone [facility] [address] [place] [address] Reuben Thacker MD Care Coordination 01/29/2025 Orders Only [facility] [address] [place] [address] Reuben Johnson MD Gynecomastia, male (Primary Dx) 2025 Telephone [facility] [address] [place] [address] Reuben Johnson MD Results 01/22/2025 Telephone [facility] [address] [place] [address] Reuben Johnson MD Results; Referral 01/17/2025 Telephone [facility] [address] [place] [address] Reuben Thacker MD Results 01/13/2025 Telephone [facility] [address] [place] [address] Reuben Johnson MD Results 01/13/2025 Orders Only [facility] [address] [place] [address] Reuben Thacker MD Gynecomastia, male (Primary Dx); Hypogonadism in male 01/09/2025 1:00 PM EDT Clinical Support [facility] [address] [place] [address] Andria Marcelo RN Primary hypertension [I10] 01/09/2025 Travel 01/03/2025 Telephone [facility] [address] [place] [address] Reuben Johnson MD 01/03/2025 Telephone [facility] [address] [place] [address] Reuben Johnson MD Medication Question 01/02/2025 1:00 PM EDT Office Visit [facility] [address] [place] [address] Reuben Johnson MD Primary hypertension (Primary Dx); Lichen simplex chronicus; Gynecomastia, male; Dietary counseling; Exercise counseling; Class 2 severe obesity due to excess calories with serious comorbidity and body mass index (BMI) of 35.0 to 35.9 in adult ([facility]) 01/02/2025 Travel 12/28/2024 Refill [facility] [address] [place] [address] Reuben Johnson MD Essential (primary) hypertension 12/14/2024 Refill [facility] [address] [place] [address] Reuben Johnson MD Benign prostatic hyperplasia with lower urinary tract symptoms 11/25/2024 Telephone [facility] [address] [place] [address] Reuben Johnson MD Med Refill 11/23/2024 Refill [facility] [address] [place] [address] Reuben Johnson MD 11/19/2024 1:00 PM EST Office Visit [facility] [address] [place] [address] Va Santo MD Lichen simplex chronicus (Primary Dx); Venous insufficiency (chronic) (peripheral) 11/19/2024 Travel 11/16/2024 Refill [facility] [address] [place] [address] Reuben Johnson MD Venous insufficiency (chronic) (peripheral) 11/15/2024 Travel from Last 3 Months Immunizations Name Administration [...] Description 04/21/2025 1:00 PM EDT Office Visit [facility] [address] [place], [place] [phone] Reuben Johnson MD [address] [place], [place] [phone] Health Maintenance Due Date Last Done Comments [...] Testosterone, Total 222(A) 250 - 1100 ng/dL [facility] Comment:Men with clinically significant hypogonadal symptoms and testosterone valuesrepeatedly in the range of the 200-300 ng/dL or less, may benefit fromtestosterone treatment after adequate risk and benefits counseling.For additional information, please refer totps://education.Aasonn.Nerdies/faq/YOB435(This link is being provided for informational/educational purposes only.)(Note)This test was developed and its analytical performancecharacteristics have been determined by [employer]. It hasnot been cleared or approved by the FDA. This assay hasbeen validated pursuant to the CLIA regulations and isused for clinical purposes. Testosterone, Free 30.7(A) 35.0 - 155.0 pg/mL [facility] Comment:(Note)This test was developed and its analytical performancecharacteristics have been determined by [employer]. It hasnot been cleared or approved by the FDA. This assay hasbeen validated pursuant to the CLIA regulations and isused for clinical purposes.[facility]Fmed [id number] [place] [address],[address] [phone] Romain Le MD, PhDTHIS TEST WAS PERFORMED AT:[place] [address] [place] [phone] LE MD,PHD Blood Venous blood specimen / Unknown 01/14/2025 9:33 AM EDT 01/14/2025 2:33 PM EDT us Reuben Johnson MD LAB BLOOD ORDERABLES Final Result [facility] [address] [place] [phone] * (ABNORMAL) Estradiol (01/03/2025 8:55 AM EDT) Pathologist [facility] Estradiol Ultra Sensitive 30(A) < OR = 29 pg/mL [facility] Comment:This test was devlázaroo ped and its analytical performancecharacteristics have been determined by [employer].It has not been cleared or approved by the FDA. This assayhas been validated pursuant to the CLIA regulations and isused for clinical purposes.THIS TEST WAS PERFORMED AT:[employer] [id number] [place] [phone] CARRILLO MD,PHD,TANJA Blood Venous blood specimen / Unknown 01/03/2025 8:55 AM EDT 01/03/2025 1:57 PM EDT us Reuben Johnson MD LAB BLOOD ORDERABLES Final Result Performing Organization Address [facility]/ZIP Co de Phone Number [facility] [address] [place] [phone] * LH (01/03/2025 8:55 AM EDT) Lutenizing Hormone 2.9 1.6 - 15.2 mIU/mL [facility] Comment:THIS TEST WAS PERFOR MED AT:[employer] [place] [phone] MONROY MD Blood Venous blood specimen / Unknown 01/03/2025 8:55 AM EDT 01/03/2025 1:57 PM EDT us Reuben Johnson MD LAB BLOOD ORDERABLES Final Result Performing Organization Address [facility] Co de Phone Number [facility] [address] [place] [phone] * hCG, Total, Quantitative (01/03/2025 8:53 AM EDT) HCG Quantitative <2 mIU/mL [facility] Blood Venous blood specimen / Unknown 01/03/2025 8:53 AM EDT 01/03/2025 1:57 PM EDT us Reuben Johnson MD LAB BLOOD ORDERABLES Final Result Performing Organization Address [facility] Co de Phone Number [facility] [address] [place] [phone] * LIPID PANEL, STANDARD (03/02/2022 11:11 [...] ?? Jeff ANGELES et al. RAMIN. 2013;310(19): 9088-1627 ?? (http://education.NowForce/faq/PAI971) Non-HDL Cholesterol 102 <130 mg/dL (calc) [facility] Comment: For patients with diabetes plus 1 major ASCVD risk ?? factor, treating to a non-HDL-C goal of <100 mg/dL ?? (LDL-C of <70 mg/dL) is considered a therapeutic ?? option. Triglycerides 138 <150 mg/dL [facility] 03/02/2022 11:1 1 AM EDT us Reuben Johnson MD LAB BLOOD ORDERABLES Final Result [facility] [address] from Last 3 Months or Most Recently Relevant to Health Maintenance Insurance [facility] PPO [facility] F[facility] Care Teams Wafer Cutter Relationship Specialty Start Date End Date Reuben Johnson MD [address] [place] [address] PCP - General Internal Medicine 03/08/21
--- OUTSIDE RECORDS SUMMARY | 2025-02-11 09:22 | XMS_ITS | Encounter Summary ---
Author Organization [employer] Address [address] [place] [address] Care Team Providers Care Screen Tender Helper Name Role Phone Reuben Johnson MD Primary Care Provider [phone] Reason for Visit * Reason Comments Med Refill Encounter Details Date Type Department Care Team ([facility] Contact Info) Description 11/11/2024 Refill [facility] [address] [place] [address] Reuben Johnson MD [address] [place] [address] Venous insufficiency (chronic) (peripheral) Social History Tobacco [...] 04/21/2025 1:00 PM EDT Office Visit [facility] [address] [place] [address] Reuben Johnson MD [address] [place] [address] documented as of this encounter Visit Diagnoses Diagnosis Venous insufficiency (chronic) (peripheral) Unspecified venous (peripheral) insufficiency documented in this encounter Care Teams Screen Tender Helper Relationship Specialty Start Date End Date Rueben Johnson MD [address] [place], [place] [address], [place] [address] PCP - General Internal Medicine 03/08/21 documented as of this encounter
--- OUTSIDE RECORDS SUMMARY | 2025-02-11 09:22 | XMS_ITS | Encounter Summary ---
Author Organization [employer] Address [address] [facility] [address] [address] Care Team Providers Care Pulper Name Role Phone Reuben Johnson MD Primary Care Provider [phone] Reason for Referral * Consultation (Routine) - Closed Specialty Diagnoses / Procedures Referred By Gerson bailey Referred To Contact Endocrinology Diagnoses Gynecomastia, male Hypogonadism in male Reuben Johnson MD [address] [place] [address] Phone: tel: fax: [facility] [place] [place]ocrinology [address] [place] [address] Phone: tel: fax: Referral ID Status Reason Start Date Expiration Date V isits Requested Visits Authorized [id number] Closed Specialty Services Required 01/21/2025 01/21/2026 1 1 Encounter Details Date Type Department Care Team (Late st Contact Info) Description 01/13/2025 Orders Only [facility]ED[facility] [address] [place] [address] Reuben Johnson MD [address] [place] [address] Gynecomastia, male (Primary Dx); Hypogonadism in male [...] Upcoming Encounters Date Type Department Care Team ([facility] Contact Info) Description 04/21/2025 1:00 PM EDT Office Visit [facility] MED & PEDS [address] [place] [address] Reuben Johnson MD [address] [place] [address] Scheduled Referrals Name Type Priority Associated Diagnoses [...] Testosterone, Total 222(A) 250 - 1100 ng/dL [facility] Comment:Men with clinically significant hypogonadal symptoms and testosterone valuesrepeatedly in the range of the 200-300 ng/dL or less, may benefit fromtestosterone treatment after adequate risk and benefits counseling.For additional information, please refer toStabilitechtps://[email or web address]/faq/[email or web address](This link is being provided for informational/educational purposes only.)(Note)This test was developed and its analytical performancecharacteristics have been determined by [employer]. It hasnot been cleared or approved by the FDA. This assay hasbeen validated pursuant to the CLIA regulations and isused for clinical purposes. Testosterone, Free 30.7(A) 35.0 - 155.0 pg/mL [facility] Comment:(Note)This test was developed and its analytical performancecharacteristics have been determined by [employer]. It hasnot been cleared or approved by the FDA. This assay hasbeen validated pursuant to the CLIA regulations and isused for clinical purposes.MDFmed [id number] [address],[address] [place] [address] [phone] Romain Le MD, PhDTHIS TEST WAS PERFORMED AT:[id number] [address] [address] [place] [phone] LE MD,PHD Blood Venous blood specimen / Unknown 01/14/2025 9:33 AM EDT 01/14/2025 2:33 PM EDT us Reuben Johnson MD LAB BLOOD ORDERABLES Final Result [facility] [address] [place] [phone] documented in this encounter Visit Diagnoses Diagnosis Gynecomastia, male- Primary Hypertrophy of breast Hypogonadism in male documented in this encounter Additional Health Concerns Assessment Noted Time PHQ-9 Depression Total Score: 0 01/03/20 25 1:33 PM EDT documented as of this encounter Care Teams Pulper Relationship Specialty Start Date End Date Reuben Johnson MD [address] [place] [address] PCP - General Internal Medicine 03/08/21 documented as of this encounter
--- OUTSIDE RECORDS SUMMARY | 2025-02-11 09:22 | XMS_ITS | Encounter Summary ---
Author Organization [employer] Address 75 [facility] 7 [place] [address] Care Team Providers Care Employee Communications Coordinator Name Role Phone Reuben Johnson MD Primary Care Provider +1- [phone] Encounter Details Date Type Department Care Team ([facility] Contact Info) Description 11/11/2022 Orders Only [facility] MEDICINE [address] [place] [address] Reuben Johnson MD [address] [place], [place] [phone] Low back pain at multiple sites (Primary [...] Description 04/21/2025 1:00 PM EDT Office Visit [facility] MED & PEDS 505 [place], [place] [phone] Reuben Johnson MD 505 [place], [place] [phone] Scheduled Orders Name Type Priority Associated Diagnoses Orde r Schedule MR Thoracic Spine w/o Contrast Imaging Routine Low back pain at multiple sites Expected: 11/16/2022, Expires: 11/16/2023 documented as of this encounter Visit Diagnoses Diagnosis Low back pain at multiple sites- Primary documented in this encounter Care Teams Employee Communications Coordinator Relationship Specialty Start Date End Date Reuben Johnson MD [address] [place] [address] PCP - General Internal Medicine 03/08/21 documented as of this encounter
--- OUTSIDE RECORDS SUMMARY | 2025-02-11 09:22 | XMS_ITS | Encounter Summary ---
Author Organization [employer] Address 75 [facility] 7 [place] [address] Care Team Providers Care Tool Procurement Coordinator Name Role Phone Reuben Johnson MD Primary Care Provider [phone] Reason for Referral * Imaging (Routine) - Authorized Specialty Diagnoses / Procedures Referred By Contac t Referred To Contact Radiology Diagnoses Gynecomastia, male Procedures BI US Breast Limited Right Reuben Johnson MD [address] [place] [address] Phone: tel: fax: [address] Phone: tel: fax: Referral ID Status Reason Start Date Expiration Date V isits Requested Visits Authorized [id number] Authorized 01/29/2025 01/29/2026 1 1 * Imaging (Routine) - Authorized Specialty Diagnoses / Procedures Referred By Contac t Referred To Contact Radiology Diagnoses Gynecomastia, male Procedures BI US Breast Limited Left Reuben Johnson MD [address] [place] [address] Phone: tel: fax: [address] Phone: tel: fax: Referral ID Status Reason Start Date Expiration Date V isits Requested Visits Authorized [id number] Authorized 01/29/2025 01/29/2026 1 1 Encounter Details Date Type Department Care Team (Late st Contact Info) Description 01/29/2025 Orders Only [facility] 505 [place] [address] Reuben Johnson MD [address] [place] [address] Gynecomastia, male (Primary Dx) Social History Tobacco Use Types Packs/Day Years Used Date Smoking Tobacco: Every Day Cigarettes Smokeless Tobacco: Never Depression Answer Date Recorded Patient Health Questionnaire-9 Score 0 01/02/2025 Patient Health Questionnaire-9 Score 0 01/02/2025 Last PHQ-9: Questionnaire Data Not on file 0 01/02/2025 Housing Stability Answer Date Recorded What is your housing situation today? I have fabelio mckeon 01/02/[address] you [...] Description 04/21/2025 1:00 PM EDT Office Visit [facility] MED & PEDS [address] [place] [address] Reuben Johnson MD [address] [place] [address] Scheduled Orders Name Type Priority Associated Diagnoses [...] documented as of this encounter Care Teams Tool Procurement Coordinator Relationship Specialty Start Date End Date Reuben Johnson MD [address] [place] [address] PCP - General Internal Medicine 03/08/21 documented as of this encounter
--- OUTSIDE RECORDS SUMMARY | 2025-02-11 09:22 | XMS_ITS | Encounter Summary ---
Author Organization [employer] Address [address] [place] [address] Care Team Providers Care Recycling Director Name Role Phone Reuebn Johnson MD Primary Care Provider [phone]- [phone] Reason for Visit * Reason Comments Med Refill Encounter Details Date Type Department Care Team ([facility] Contact Info) Description 11/12/2024 Refill [facility] MED & PEDS 505 [place] [address] Reuben Johnson MD [address] [place] [address] Benign prostatic hyperplasia with lower urinary tract [...] 04/21/2025 1:00 PM EDT Office Visit [facility] MED & PEDS 505 [place] [address] Reuben Johnson MD [address] [place] [address] documented as of this encounter Visit Diagnoses Diagnosis Benign prostatic hyperplasia with lower urinary tract symptoms documented in this encounter Care Teams Recycling Director Relationship Specialty Start Date End Date Reuben Johnson MD [address] [place] [address] PCP - General Internal Medicine 03/08/21 documented as of this encounter
--- OUTSIDE RECORDS SUMMARY | 2025-02-11 09:22 | XMS_ITS | Encounter Summary ---
Author Organization [employer] Address 75 [facility] 7 [place] [address] Care Team Providers Care Multi Site Leasing Consultant Name Role Phone Reuben Johnson MD Primary Care Provider [phone]- [phone] Encounter Details Date Type Department Care Team ([facility] Contact Info) Description 02/22/2023 Orders Only [facility] MED & PEDS [address] [place], [place] [phone] Reuben Johnson MD [address] [place], [place] [phone] Low back pain at multiple sites (Primary [...] Upcoming Encounters Date Type Department Care Team ([facility] Contact Info) Description 04/21/2025 1:00 PM EDT Office Visit [facility] MED & PEDS [address] [place], [place] [phone] Reuben Johnson MD [address] [place], [place] [phone] documented as of this encounter Visit Diagnoses Diagnosis Low back pain at multiple sites- Primary documented in this encounter Care Teams Multi Site Leasing Consultant Relationship Specialty Start Date End Date Reuben Johnson MD [address] [place] [address] PCP - General Internal Medicine 03/08/21 documented as of this encounter
[2025-02-11 14:56] LABS: Ferritin 182 ng/mL (20-250)
[2025-02-12 04:14] LABS: Prolactin 3.8 ng/mL (2.0-18.0)
== END 2025-02-11 08:59 | disposition home or self-care (01) ==
LOC: HO.CHCLDS 08:58
PROVIDERS: Visit Provider Internal Medicine Endocrinology, Diabetes & Metabolism
DX: E29.1 Testicular hypofunction (principal)
CPT/HCPCS: 36415; 82728; 84146

== ENCOUNTER → 2025-02-13 10:00 | Outpatient (BNV) | payer MEDICARE, SELFPAY | PROVIDERS: Absent Provider Internal Medicine Endocrinology, Diabetes & Metabolism; PCP Internal Medicine; Visit Provider Internal Medicine | DX: N64.89 Other specified disorders of breast (principal); N62 Hypertrophy of breast | CPT/HCPCS: 76642; 77066; G0279 ==

== ENCOUNTER 2025-02-13 10:11 | Outpatient (REF) | payer MEDICARE, SELFPAY ==
--- NOTE | ~2025-02-13 | US_ITS ---
EXAMINATION: MM DIAGNOSTIC DIGITAL BREAST TOMOSYNTHESIS, BILATERAL Limited left breast ultrasound. CLINICAL INFORMATION: Left breast painful area for 2 months retroareolar region. COMPARISON: Mammography: Comparison is made with relevant prior exams. TECHNIQUE: Digital breast mammography with tomosynthesis is performed in both the craniocaudal and mediolateral oblique views along with computer-aided detection (CAD). FINDINGS: Right: There are no significant masses, abnormal calcifications, or other abnormalities. Left: There is moderate retroareolar flame-shaped gynecomastia. No suspicious calcifications masses or other abnormal findings. Targeted color Doppler ultrasound scanning in the retroareolar region demonstrates moderate nodular retroareolar gynecomastia. There is no sonographic abnormality. Results are provided to the patient at time of visit by the technologist. US/US breast LT limited mamm only IMPRESSION: Right: Negative. Left: Moderate nodular gynecomastia. Benign. ASSESSMENT: BI-RADS BI-RADS 2 - Benign Findings RECOMMENDATION: Clinical evaluation and followup Electronically signed by: Renetta Gutierrez DO 02/13/2025 12:03 PM EDT
--- OUTSIDE RECORDS SUMMARY | 2025-02-13 11:10 | XMS_ITS | Encounter Summary ---
Author Organization [employer] Address [address] [place] [address] Care Team Providers Care Applied Behavior Specialist Name Role Phone Reuben Johnson MD Primary Care Provider [phone]- [phone] Reason for Visit * Reason Comments Med Refill Encounter Details Date Type Department Care Team ([facility] Contact Info) Description 11/11/2024 Refill [facility] MED & PEDS [address] [place] [address] Reuben Johnson MD 505 [place] [address] Venous insufficiency (chronic) (peripheral) Social History Tobacco [...] Description 04/21/2025 1:00 PM EDT Office Visit [facility] MED & PEDS [address] [place] [address] Reuben Johnson MD [address] [place] [address] documented as of this encounter Visit Diagnoses Diagnosis Venous insufficiency (chronic) (peripheral) Unspecified venous (peripheral) insufficiency documented in this encounter Care Teams Applied Behavior Specialist Relationship Specialty Start Date End Date Reuben Johnson MD [address] [place], [place] [address], [place] [address] PCP - General Internal Medicine 03/08/21 documented as of this encounter
--- OUTSIDE RECORDS SUMMARY | 2025-02-13 11:10 | XMS_ITS | Encounter Summary ---
Author Organization [employer] Address 75 [facility] 7t [place] [address] Care Team Providers Care Auto Service Advisor Name Role Phone Reuben Johnson MD Primary Care Provider [phone] Reason for Visit * Reason Comments Med Refill Encounter Details Date Type Department Care Team ([facility] st Contact Info) Description 02/08/2025 Refill [facility] MED & PEDS [address] [place] [address] Reuben Johnson MD [address] [place] [address] Mixed hyperlipidemia Social History Tobacco Use Types [...] Upcoming Encounters Date Type Department Care Team ([facility] st Contact Info) Description 04/21/2025 1:00 PM EDT Office Visit [facility] MED & PEDS [address] [place] [address] Reuben Johnson MD [address] [place] [address] documented as of this encounter Visit Diagnoses Diagnosis Mixed hyperlipidemia documented in this encounter Additional Health Concerns Assessment Noted Time PHQ-9 Depression Total Score: 0 01/03/20 25 1:33 PM EDT documented as of this encounter Care Teams Auto Service Advisor Relationship Specialty Start Date End Date Reuben Johnson MD [address] [place] [address] PCP - General Internal Medicine 03/08/21 documented as of this encounter
--- OUTSIDE RECORDS SUMMARY | 2025-02-13 11:10 | XMS_ITS | Encounter Summary ---
Author Organization [employer] Address 75 [facility] 7 [place] [address] Care Team Providers Care Diesel Trailer Mechanic Name Role Phone Reuben Johnson MD Primary Care Provider [phone] Reason for Referral * Imaging (Routine) - Authorized Specialty Diagnoses / Procedures Referred By Contac t Referred To Contact Radiology Diagnoses Gynecomastia, male Procedures BI US Breast Limited Right Reuben Johnson MD [address] [place] [address] Phone: tel: fax: [address] Phone: tel: fax: Referral ID Status Reason Start Date Expiration Date V isits Requested Visits Authorized [id number] Authorized 01/29/2025 01/29/2026 1 1 * Imaging (Routine) - Authorized Specialty Diagnoses / Procedures Referred By Contac t Referred To Contact Radiology Diagnoses Gynecomastia, male Procedures BI US Breast Limited Left Reuben Johnson MD [address] [place] [address] Phone: tel: fax: [address] Phone: tel: fax: Referral ID Status Reason Start Date Expiration Date V isits Requested Visits Authorized [id number] Authorized 01/29/2025 01/29/2026 1 1 Encounter Details Date Type Department Care Team (Late st Contact Info) Description 01/29/2025 Orders Only [facility] 505 [place] [address] Reuben Johnson MD [address] [place] [address] Gynecomastia, male (Primary Dx) Social History Tobacco [...] Description 04/21/2025 1:00 PM EDT Office Visit [facility] MED & PEDS 505 [place] [address] Reuben Johnsno MD [address] [place] [address] Scheduled Orders Name Type Priority Associated Diagnoses [...] documented as of this encounter Care Teams Diesel Trailer Mechanic Relationship Specialty Start Date End Date Reuben Johnson MD [address] [place] [address] PCP - General Internal Medicine 03/08/21 documented as of this encounter
--- OUTSIDE RECORDS SUMMARY | 2025-02-13 11:10 | XMS_ITS | Encounter Summary ---
Author Organization [employer] Address [address] [place] [address] Care Team Providers Care Sales Associate Key Holder Name Role Phone Reuben Johnson MD Primary Care Provider [phone]- [phone] Reason for Visit * Reason Comments Med Refill Encounter Details Date Type Department Care Team ([facility] Contact Info) Description 11/12/2024 Refill [facility] MED & PEDS [address] [place] [address] Reuben Johnson MD [address] [place] [address] Benign prostatic hyperplasia with lower urinary tract [...] Description 04/21/2025 1:00 PM EDT Office Visit [facility] MED & PEDS [address] [place] [address] Reuben Johnson MD [address] [place] [address] documented as of this encounter Visit Diagnoses Diagnosis Benign prostatic hyperplasia with lower urinary tract symptoms documented in this encounter Care Teams Sales Associate Key Holder Relationship Specialty Start Date End Date Reuben Johnson MD [address] [place] [address] PCP - General Internal Medicine 03/08/21 documented as of this encounter
--- OUTSIDE RECORDS SUMMARY | 2025-02-13 11:10 | XMS_ITS | Encounter Summary ---
Author Organization [employer] Address 75 [facility] [address] [address] Care Team Providers Care Manager Federal Name Role Phone Reuben Johnson MD Primary Care Provider [phone] Reason for Referral * Consultation (Routine) - Closed Specialty Diagnoses / Procedures Referred By Gerson bailey Referred To Contact Endocrinology Diagnoses Gynecomastia, male Hypogonadism in male Reuben Johnson MD [address] [place] [address] Phone: tel: fax: [facility] Endocrinology [address] [place] [address] Phone: tel: fax: Referral ID Status Reason Start Date Expiration Date V isits Requested Visits Authorized [id number] Closed Specialty Services Required 01/21/2025 01/21/2026 1 1 Encounter Details Date Type Department Care Team (Late st Contact Info) Description 01/13/2025 Orders Only [facility] MED & PEDS [address] [place] [address] Reuben Johnson MD [address] [place] [address] Gynecomastia, male (Primary Dx); Hypogonadism in male [...] Upcoming Encounters Date Type Department Care Team ([facility] Contact Info) Description 04/21/2025 1:00 PM EDT Office Visit [facility] MED & PEDS [address] [place] [address] Reuben Johnson MD [address] [place] [address] Scheduled Referrals Name Type Priority Associated Diagnoses [...] Testosterone, Total 222(A) 250 - 1100 ng/dL [facility] Comment:Men with clinically significant hypogonadal symptoms and testosterone valuesrepeatedly in the range of the 200-300 ng/dL or less, may benefit fromtestosterone treatment after adequate risk and benefits counseling.For additional information, please refer [email or web address]/faq/[email or web address](This link is being provided for informational/educational purposes only.)(Note)This test was developed and its analytical performancecharacteristics have been determined by [employer]. It hasnot been cleared or approved by the FDA. This assay hasbeen validated pursuant to the CLIA regulations and isused for clinical purposes. Testosterone, Free 30.7(A) 35.0 - 155.0 pg/mL [facility] Comment:(Note)This test was developed and its analytical performancecharacteristics have been determined by [employer]. It hasnot been cleared or approved by the FDA. This assay hasbeen validated pursuant to the CLIA regulations and isused for clinical purposes.MDFmed [id number] [address],[address] [place] [address] [phone] Romain Le MD, PhDTHIS TEST WAS PERFORMED AT:[id number] [place] [phone] LE MD,PHD Blood Venous blood specimen / Unknown 01/14/2025 9:33 AM EDT 01/14/2025 2:33 PM EDT us Reuben Johnson MD LAB BLOOD ORDERABLES Final Result [facility] [address] [place] [phone] documented in this encounter Visit Diagnoses Diagnosis Gynecomastia, male- Primary Hypertrophy of breast Hypogonadism in male documented in this encounter Additional Health Concerns Assessment Noted Time PHQ-9 Depression Total Score: 0 01/03/20 25 1:33 PM EDT documented as of this encounter Care Teams Manager Federal Relationship Specialty Start Date End Date Reuben Johnson MD [address] [place] [address] PCP - General Internal Medicine 03/08/21 documented as of this encounter
--- OUTSIDE RECORDS SUMMARY | 2025-02-13 11:10 | XMS_ITS | Encounter Summary ---
Author Organization [employer] Address 75 [facility] 7 [place] [address] Care Team Providers Care Brewer Helper Name Role Phone Reuben Johnson MD Primary Care Provider [phone]- [phone] Encounter Details Date Type Department Care Team ([facility] Contact Info) Description 11/11/2022 Orders Only [facility] MEDICINE [address] [place] [address] Reuben Johnson MD [address] [place], [place] [phone] Low back pain at multiple sites (Primary [...] Upcoming Encounters Date Type Department Care Team ([facility] Contact Info) Description 04/21/2025 1:00 PM EDT Office Visit [facility] MED & PEDS [address] [place], [place] [phone] Reuben Johnson MD 505 [place], [place] [phone] Scheduled Orders Name Type Priority Associated Diagnoses Orde r Schedule MR Thoracic Spine w/o Contrast Imaging Routine Low back pain at multiple sites Expected: 11/16/2022, Expires: 11/16/2023 documented as of this encounter Visit Diagnoses Diagnosis Low back pain at multiple sites- Primary documented in this encounter Care Teams Brewer Helper Relationship Specialty Start Date End Date Reuben Johnson MD [address] [place] [address] PCP - General Internal Medicine 03/08/21 documented as of this encounter
--- OUTSIDE RECORDS SUMMARY | 2025-02-13 11:10 | XMS_ITS | Encounter Summary ---
Author Organization [employer] Address [address] [place] [address] Care Team Providers Care Speech Therapist Name Role Phone Reuben Johnson MD Primary Care Provider [phone]- [phone] Reason for Visit * Reason Comments Med Refill Encounter Details Date Type Department Care Team ([facility] Contact Info) Description 11/16/[address] [facility] MED & PEDS [address] [place] [address] Reuben Johnson MD [address] [place] [address] Venous insufficiency (chronic) (peripheral) Social History Tobacco [...] PM EDT Office Visit [facility] MED & PEDS [address] [place] [address] Reuben Johnson MD [address] [place] [address] documented as of this encounter Visit Diagnoses Diagnosis Venous insufficiency (chronic) (peripheral) Unspecified venous (peripheral) insufficiency documented in this encounter Care Teams Speech Therapist Relationship Specialty Start Date End Date Reuben Johnson MD [address] [place], [place] [address], [place] [address] PCP - General Internal Medicine 03/08/21 documented as of this encounter
--- OUTSIDE RECORDS SUMMARY | 2025-02-13 11:10 | XMS_ITS | Encounter Summary ---
Author Organization [employer] Address 75 [facility] 7 [place] [address] Care Team Providers Care Crane Hooker Name Role Phone Reuben Johnson MD Primary Care Provider [phone]- [phone] Encounter Details Date Type Department Care Team ([facility] Contact Info) Description 02/22/2023 Orders Only [facility] MED & PEDS [address] [place], [place] [phone] Reuben Johnson MD [address] [place], [place] [phone] Low back pain at multiple sites (Primary [...] Upcoming Encounters Date Type Department Care Team ([facility] Contact Info) Description 04/21/2025 1:00 PM EDT Office Visit [facility] MED & PEDS [address] [place], [place] [phone] Reuben Johnson MD [address] [place], [place] [phone] documented as of this encounter Visit Diagnoses Diagnosis Low back pain at multiple sites- Primary documented in this encounter Care Teams Crane Hooker Relationship Specialty Start Date End Date Reuben Johnson MD [address] [place] [address] PCP - General Internal Medicine 03/08/21 documented as of this encounter
--- OUTSIDE RECORDS SUMMARY | 2025-02-13 11:10 | XMS_ITS | Clinical Summary ---
Author Organization [employer] Address [address] [facility] [address] [place] [address] Care Team Providers Care Bridge Crane Operator Name Role Phone Reuben Johnson MD Primary Care Provider [phone] Allergies No known active allergies Medications lisinopril [...] Type Department Care Team Description 02/08/2025 Refill [facility] [address] [place] [address] Reuben Johnson MD Mixed hyperlipidemia 01/31/2025 Telephone [facility] [address] [place] [address] Reuben Thacker MD Care Coordination 01/29/2025 Orders Only [facility] [address] [place] [address] Reubne Johnson MD Gynecomastia, male (Primary Dx) 2025 Telephone [facility] [address] [place] [address] Reuben Johnson MD Results 01/22/2025 Telephone [facility] [address] [place] [address] Reuben Johnson MD Results; Referral 01/17/2025 Telephone [facility] [address] [place] [address] Reuben Thacker MD Results 01/13/2025 Telephone [facility] [address] [place] [address] Reuben Johnson MD Results 01/13/2025 Orders Only [facility] [address] [place] [address] Reuben Thacker MD Gynecomastia, male (Primary Dx); Hypogonadism in male 01/09/2025 1:00 PM EDT Clinical Support [facility] [address] [place] [address] Andria Marcelo RN Primary hypertension [I10] 01/09/2025 Travel 01/03/2025 Telephone [facility] [address] [place] [address] Reuben Johnson MD 01/03/2025 Telephone [facility] [address] [place] [address] Reuben Johnson MD Medication Question 01/02/2025 1:00 PM EDT Office Visit [facility] [address] [place] [address] Reuben Johnson MD Primary hypertension (Primary Dx); Lichen simplex chronicus; Gynecomastia, male; Dietary counseling; Exercise counseling; Class 2 severe obesity due to excess calories with serious comorbidity and body mass index (BMI) of 35.0 to 35.9 in adult ([facility]) 01/02/2025 Travel 12/28/2024 Refill [facility] [address] [place] [address] Reuben Johnson MD Essential (primary) hypertension 12/14/2024 Refill [facility] [address] [place] [address] Reuben Johnson MD Benign prostatic hyperplasia with lower urinary tract symptoms 11/25/2024 Telephone [facility] [address] [place] [address] Reuben Johnson MD Med Refill 11/23/2024 Refill [facility] [address] [place] [address] Reuben Johnson MD 11/19/2024 1:00 PM EST Office Visit [facility] [address] [place] [address] Va Santo MD Lichen simplex chronicus (Primary Dx); Venous insufficiency (chronic) (peripheral) 11/19/2024 Travel 11/16/2024 Refill [facility] [address] [place] [address] Reuben Johnson MD Venous insufficiency (chronic) (peripheral) from Last 3 Months Immunizations Immunization Administration Dates Next Due Nadiraa Covid-19 Vaccine [...] your housing situation today? I have fab mike 01/02/[address] you li [...] Description 04/21/2025 1:00 PM EDT Office Visit [facility] [address] [place], [place] [phone] Reuben Johnson MD [address] [place] [address] Health Maintenance Due Date Last Done Comments [...] patient's age to complete this topic Meningococcal B Vaccine Aged Out No l onger eligible based on patient's age to complete [...] Testosterone, Total 222(A) 250 - 1100 ng/dL [facility] Comment:Men with clinically significant hypogonadal symptoms and testosterone valuesrepeatedly in the range of the 200-300 ng/dL or less, may benefit fromtestosterone treatment after adequate risk and benefits counseling.For additional information, please refer tohttps://education.[employer]/faq/RVD437(This link is being provided for informational/educational purposes only.)(Note)This test was developed and its analytical performancecharacteristics have been determined by [employer]. It hasnot been cleared or approved by the FDA. This assay hasbeen validated pursuant to the CLIA regulations and isused for clinical purposes. Testosterone, Free 30.7(A) 35.0 - 155.0 pg/mL [facility] Comment:(Note)This test was developed and its analytical performancecharacteristics have been determined by [employer]. It hasnot been cleared or approved by the FDA. This assay hasbeen validated pursuant to the CLIA regulations and isused for clinical purposes.MDed [id number] [place] [address],[address] [phone] Romain Le MD, PhDTHIS TEST WAS PERFORMED AT:[id number] [address] [place] [phone] LE MD,PHD Blood Venous blood specimen / Unknown 01/14/2025 9:33 AM EDT 01/14/2025 2:33 PM EDT Reuben Johnson MD LAB BLOOD ORDERABLES Final Result [facility] [address] [place] [phone] * (ABNORMAL) Estradiol (01/03/2025 8:55 AM EDT) [facility] Estradiol Ultra Sensitive 30(A) < OR = 29 pg/mL [facility] Comment:This test was devlázaroo ped and its analytical performancecharacteristics have been determined by [employer].It has not been cleared or approved by the FDA. This assayhas been validated pursuant to the CLIA regulations and isused for clinical purposes.THIS TEST WAS PERFORMED AT:[employer] [id number] [address]VYFHZANISH CARRILLO MD,PHD,TANJA Blood Venous blood specimen / Unknown 01/03/2025 8:55 AM EDT 01/03/2025 1:57 PM EDT us Reuben Johnson MD LAB BLOOD ORDERABLES Final Result Performing Organization Address [facility] Co de Phone Number [facility] [address] [place] [phone] * LH (01/03/2025 8:55 AM EDT) Lutenizing Hormone 2.9 1.6 - 15.2 mIU/mL [facility] Comment:THIS TEST WAS PERFOR MED AT:[employer] [address] [id number] MONROY MD Blood Venous blood specimen / Unknown 01/03/2025 8:55 AM EDT 01/03/2025 1:57 PM EDT us Reuben Johnson MD LAB BLOOD ORDERABLES Final Result Performing Organization Address [facility] Co tn Phone Number [facility] [address] [place] [phone] * hCG, Total, Quantitative (01/03/2025 8:53 AM EDT) HCG Quantitative <2 mIU/mL [facility] Blood Venous blood specimen / Unknown 01/03/2025 8:53 AM EDT 01/03/2025 1:57 PM EDT us Reuben Johnson MD LAB BLOOD ORDERABLES Final Result Performing Organization Address [facility] Co de Phone Number [facility] [address] [place] [phone] * LIPID PANEL, STANDARD (03/02/2022 11:11 [...] ?? Jeff ANGELES et al. RAMIN. 2013;310(19): 2564-2568 ?? (http://education.[employer]/faq/ZWC618) Non-HDL Cholesterol 102 <130 mg/dL (calc) [facility] Comment: For patients with diabetes plus 1 major ASCVD risk ?? factor, treating to a non-HDL-C goal of <100 mg/dL ?? (LDL-C of <70 mg/dL) is considered a therapeutic ?? option. Triglycerides 138 <150 mg/dL [facility] 03/02/2022 11:1 1 AM EDT Reuben Johnson MD LAB BLOOD ORDERABLES Final Result [facility] [address] from Last 3 Months or Most Recently Relevant to Health Maintenance Insurance [facility] Address: [address] [phone] [facility] Care Teams Bridge Crane Operator Relationship Specialty Start Date End Date Reuben Johnson MD [address] [place] [address] PCP - General Internal Medicine 03/08/21
== END 2025-02-13 10:12 | disposition home or self-care (01) ==
LOC: HO.MAMMO 10:11
PROVIDERS: Absent Provider Internal Medicine Endocrinology, Diabetes & Metabolism; PCP Internal Medicine; Visit Provider Internal Medicine
DX: N62 Hypertrophy of breast (principal)
CPT/HCPCS: 76642; 77062; 77066

== ENCOUNTER → 2025-02-28 09:21 | Outpatient (BNV) | payer MEDICARE, SELFPAY | PROVIDERS: PCP Internal Medicine; Visit Provider Radiology Diagnostic Radiology | DX: E23.0 Hypopituitarism (principal) | CPT/HCPCS: 70553 ==

== ENCOUNTER 2025-02-28 09:22 | Outpatient (REF) | payer MEDICARE, SELFPAY ==
--- NOTE | ~2025-02-28 | MR_ITS ---
EXAMINATION: MR BRAIN/SELLA WITHOUT AND WITH CONTRAST CLINICAL INFORMATION: Hypogonadism. Rule out pituitary mass. COMPARISON: None TECHNIQUE: Multiplanar multisequence MR imaging of the brain/sella was done prior to and following the intravenous administration of 5 mL Gadavist. Examination was performed on a 1.5 Mary Siemens high-field unit. FINDINGS: SELLA: The sella has a normal concave superior border. No sellar expansion. The infundibulum is midline and is not thickened. There are no signal abnormalities or abnormal regions of enhancement within the pituitary. There are no pituitary masses or cysts. The cavernous sinuses, carotid artery flow voids, parasellar structures and suprasellar structures are normal. The chiasm is normal. IMAGED BRAIN: There is no diffusion restriction. There is no intracranial hemorrhage, acute infarction, mass effect, or edema. Ventricles, sulci, and cisterns are normal in size and configuration for patient age. No shift of midline. There are a few scattered punctate and minimally confluent foci of white matter T2 hyperintensity in the periventricular, subcortical, and hemispheric deep white matter. These foci are nonspecific but statistically most likely relate to small vessel ischemic changes. No distribution or morphology specific to demyelinating disease. No abnormal intra or extra-axial enhancement identified. Midline structures appear normally formed. Posterior fossa structures appear normal. Cerebellar tonsils are appropriately located. Major flow voids are preserved within the skull base. The globes and orbital contents demonstrate no abnormalities. Small mucous retention cyst within the left maxillary sinus. Paranasal sinuses are otherwise clear bilaterally. The mastoids and tympanic cavities are normally aerated. Extracranial soft tissues demonstrate no abnormalities. No suspicious bone marrow changes are evident. Mild degenerative changes present in the bilateral TM joints. Atlantoaxial joint is normal. MR/MR head/brain wo/w con IMPRESSION: 1. Normal examination of the sella and pituitary. There is no sellar expansion, pituitary mass or other abnormality. 2. Remainder the imaged brain demonstrates no evidence of intracranial hemorrhage, acute infarction, mass effect, or edema. 3. There are mild changes of small vessel ischemia. 4. Additional ancillary findings as discussed. Electronically signed by: Berny Kennedy MD 03/03/2025 08:37 AM EDT
--- OUTSIDE RECORDS SUMMARY | 2025-02-28 09:38 | XMS_ITS | Clinical Summary ---
Author Organization [employer] Address [address] [facility] [address] [place] [address] Care Team Providers Care Kitchen Manager Name Role Phone Reuben Johnson MD Primary Care Provider [phone] Allergies No known active allergies Medications lisinopril [...] MORNING 90 tablet 1 11/25/19 25 Active tamsulosin (Flomax) 0.4 MG [...] EVENING 90 tablet 3 02/11/20 25 Active atenolol (Tenormin) 50 MG tablet TAKE 1 TABLET BY MOUTH EVERY DAY IN THE MORNING 90 tablet 1 02/22/20 25 Active simvastatin (Zocor) 40 MG tabletIndications :Mixed hyperlipidemia TAKE 1 TABLET BY MOUTH EVERY DAY IN THE EVENING 90 tablet 3 04/16/20 24 025 Discontinued atenolol (Tenormin) 50 MG tablet TAKE 1 TABLET BY MOUTH EVERY DAY IN THE MORNING 90 tablet 11/25/19 25 025 Discontinued ibuprofen 800 MG tabletIndications :Gynecomastia, male Take 1 tablet (800 mg) by mouth 3 times daily. 30 tablet 01/03/20 25 025 Active Problems Problem Noted Date Diagnosed Date Benign prostatic hyperplasia 03/08/2021 Hypercholesterolemia 03/08/2021 Hypertensive disorder 03/08/2021 Encounters Date Type Department Care Team Description 02/21/2025 Refill [facility] [address] [place] [address] Reuben Johnson MD 02/14/2025 Results Follow-Up [facility] [address] [place] [address] Ashley Macias RN BI Mammogram Diagnostic Tomosynthesis Bilateral 02/08/2025 Refill [facility] [address] [place] [address] Reuben Johnson MD Mixed hyperlipidemia 01/31/2025 Telephone [facility] [address] [place] [address] Reuben Johnson MD Care Coordination 01/29/2025 Orders Only [facility] [address] [place] [address] Reuben Johnson MD Gynecomastia, male (Primary Dx) 2025 Telephone [facility] [address] [place] [address] Reuben Thacker MD Results 01/22/2025 Telephone [facility] [address] [place] [address] Reuben Thacker MD Results; Referral 01/17/2025 Telephone [facility] [address] [place] [address] Reuben Johnson MD Results 01/13/2025 Telephone [facility] [address] [place] [address] Reuben Johnson MD Results 01/13/2025 Orders Only [facility] [address] [place] [address] Reuben Johnson MD Gynecomastia, male (Primary Dx); Hypogonadism in male 01/09/2025 1:00 PM EDT Clinical Support [facility] [address] [place] [address] Andria Marcelo RN Primary hypertension [I10] 01/09/2025 Travel 01/03/2025 Telephone [facility] [address] [place] [address] Reuben Johnson MD 01/03/2025 Telephone [facility] [address] [place] [address] Reuben Johnson MD Medication Question 01/02/2025 1:00 PM EDT Office Visit [facility] [address] [place] [address] Reuben Johnson MD Primary hypertension (Primary Dx); Lichen simplex chronicus; Gynecomastia, male; Dietary counseling; Exercise counseling; Class 2 severe obesity due to excess calories with serious comorbidity and body mass index (BMI) of 35.0 to 35.9 in adult ([facility]) 01/02/2025 Travel 12/28/2024 Refill [facility] [address] [place] [address] Reuben Johnson MD Essential (primary) hypertension 12/14/2024 Refill [facility] [address] [place] [address] Reuben Johnson MD Benign prostatic hyperplasia with lower urinary tract symptoms from Last 3 Months Immunizations Immunization Administration Dates Next Due Moderna Covid-19 Vaccine [...] Description 04/21/2025 1:00 PM EDT Office Visit [facility] [address] [place] [address] Reuben Johnson MD [address] [place] [address] Health Maintenance Due Date Last Done Comments [...] Procedure Name Priority Date/Time Associated Diagnosis Comments BI US BREAST LIMITED LEFT Routine 02/13/2025 10:30 AM EDT Gynecomastia, male BI MAMMOGRAM DIAGNOSTIC TOMOSYNTHESIS BILATERAL Routine 02/13/2025 10:20 AM EDT TESTOSTERONE, FREE (DIALYSIS) AND TOTAL,MS Routine 01/14/2025 [...] Recently Relevant to Health Maintenance Results * BI US Breast Limited Left (02/13/2025 10:30 AM EDT) Anatomical Region Laterality Modality Breast Left Ultrasound 02/13/2025 10:3 0 AM EDT Narrative 02/13/2025 12:06 PM EDT ? [facility] ? [address] ?[place] [address] ? Ultrasound Report ? Signed ? Patient: Lysik,Remy ?MR#: [id number] ?? [id number] ? : 1955 ?Acct:[id number] ? Age/Sex: 70 / M ?ADM Date: 02/13/25 ? Loc: HO.MAMMO ? Attending Dr: Reuben Johnson MD ? Ordering Physician: Reuben Johnson MD ?? Date of Service: 02/13/25 ?? Procedure(s): US breast LT limited mamm only ?? Accession Number(s): [id number] ? cc: Reuben Johnson MD ? EXAMINATION: ?? MM DIAGNOSTIC DIGITAL BREAST TOMOSYNTHESIS, BILATERAL ?? Limited left breast ultrasound. ? CLINICAL INFORMATION: ? Left breast painful area for 2 months retroareolar region. ? COMPARISON: ?? Mammography: Comparison is made with relevant prior exams. ? TECHNIQUE: ?? Digital breast mammography with tomosynthesis is performed in both the ?? craniocaudal and mediolateral oblique views along with computer-aided ?? detection (CAD). ? FINDINGS: ?? Right: ?? There are no significant masses, abnormal calcifications, or other ?? abnormalities. ? Left: There is moderate retroareolar flame-shaped gynecomastia. ?? No suspicious calcifications masses or other abnormal findings. ? Targeted color Doppler ultrasound scanning in the retroareolar region ?? demonstrates moderate nodular retroareolar gynecomastia. There is no ?? sonographic abnormality. ? Results are provided to the patient at time of visit by the ?? technologist. ? US/US breast LT limited mamm only ?? IMPRESSION: ?? Right: Negative. ? Left: Moderate nodular gynecomastia. Benign. ? ASSESSMENT: ? BI-RADS BI-RADS 2 - Benign Findings ? RECOMMENDATION: ? Clinical evaluation and followup ? Electronically signed by: ??Renetta Gutierrez DO ??02/13/2025 12:03 PM EDT ?? RP ? Dictated By: ?Renetta Gutierrez DO ? Signed By: ?<Electronically signed by Renetta Gutierrez, DO in OV> ? 05/15/25 1203 ? DD/ 1030 ? TD/TT: 05/15/25 1054 ? Treatment Specialist: ? Procedure Note Donotuseinterpreter, Image - 02/17/2025 [facility] [address] [place] [address] Ultrasound Report Signed Patient: Keith Kaufman#: [id number] : 1955cct:[id number] Age/Sex: 70 / MADM Date: 02/13/25 Loc: HO.MAMMO Attending Dr: Reuben Johnson MD Ordering Physician: Reuben Johnson MD Date of Service: 02/13/25 Procedure(s): US breast LT limited mamm only Accession Number(s): [id number] cc: Reuben Johnson MD EXAMINATION: MM DIAGNOSTIC DIGITAL BREAST TOMOSYNTHESIS, BILATERAL Limited left breast ultrasound. CLINICAL INFORMATION: Left breast painful area for 2 months retroareolar region. COMPARISON: Mammography: Comparison is made with relevant prior exams. TECHNIQUE: Digital breast mammography with tomosynthesis is performed in both the craniocaudal and mediolateral oblique views along with computer-aided detection (CAD). FINDINGS: Right: There are no significant masses, abnormal calcifications, or other abnormalities. Left: There is moderate retroareolar flame-shaped gynecomastia. No suspicious calcifications masses or other abnormal findings. Targeted color Doppler ultrasound scanning in the retroareolar region demonstrates moderate nodular retroareolar gynecomastia. There is no sonographic abnormality. Results are provided to the patient at time of visit by the technologist. US/US breast LT limited mamm only IMPRESSION: Right: Negative. Left: Moderate nodular gynecomastia. Benign. ASSESSMENT: BI-RADS BI-RADS 2 - Benign Findings RECOMMENDATION: Clinical evaluation and followup Electronically signed by: Renetta Gutierrez DO 02/13/2025 12:03 PM EDT Dictated By: Renetta Gutierrez DO Signed By: <Electronically signed by Renetta Gutierrez DO in OV> 02/13/25 1203 DD/ 1030 TD/TT: 02/13/25 1054 Treatment Specialist: us Reuben Johnson MD IMG US PROCEDURES Edited Re sult - Final * BI Mammogram Diagnostic Tomosynthesis Bilateral (02/13/2025 10:20 AM EDT) Anatomical Region Laterality Modality Breast Bilateral Mammography 02/13/2025 10:2 0 AM EDT Narrative 02/13/2025 12:06 PM EDT ? [facility] ? [address] ?[place] [address] ?[phone] ? Mammography Report ? Signed ? Patient: Marthaik,Remy ?MR#: [id number] ?? [id number] ? : 1955 ?Acct:[id number] ? Age/Sex: 70 / M ?ADM Date: 15/ ? Loc: HO.MAMMO ? Attending Dr: Reuben Johnson MD ? Ordering Physician: Reuben Johnson MD ?Results: 2 ?? Benign Findings ? Date of Service: 15/ ?Follow Up: 1 Year From Orig ?? inal Mammogram ? Procedure(s): MM tomosynthesis diagnostic BI ?? Accession Number(s): [id number] ? cc: Reuben Johnson MD ? EXAMINATION: ?? MM DIAGNOSTIC DIGITAL BREAST TOMOSYNTHESIS, BILATERAL ?? Limited left breast ultrasound. ? CLINICAL INFORMATION: ? Left breast painful area for 2 months retroareolar region. ? COMPARISON: ?? Mammography: Comparison is made with relevant prior exams. ? TECHNIQUE: ?? Digital breast mammography with tomosynthesis is performed in both the ?? craniocaudal and mediolateral oblique views along with computer-aided ?? detection (CAD). ? FINDINGS: ?? Right: ?? There are no significant masses, abnormal calcifications, or other ?? abnormalities. ? Left: There is moderate retroareolar flame-shaped gynecomastia. ?? No suspicious calcifications masses or other abnormal findings. ? Targeted color Doppler ultrasound scanning in the retroareolar region ?? demonstrates moderate nodular retroareolar gynecomastia. There is no ?? sonographic abnormality. ? Results are provided to the patient at time of visit by the ?? technologist. ? MM/MM tomosynthesis diagnostic BI ?? IMPRESSION: ?? Right: Negative. ? Left: Moderate nodular gynecomastia. Benign. ? ASSESSMENT: ? BI-RADS BI-RADS 2 - Benign Findings ? RECOMMENDATION: ? Clinical evaluation and followup ? Electronically signed by: ??Renetta Gutierrez DO ??02/13/2025 12:03 PM EDT ?? RP ? Dictated By: ?Renetta Gutierrez DO ? Signed By: ?<Electronically signed by Renetta Gutierrez, DO in OV> ? 02/13/25 1203 ? DD/ 1020 ? TD/TT: 02/13/25 1039 ? Treatment Specialist: ? Procedure Note Edis Roque - 02/17/2025 [facility] [address] [place] [address] [place] [address] Mammography Report Signed Patient: Keith Kaufman#: [id number] : 7Acct:[id number] Age/Sex: 70 / MADM Date: 02/13/25 Loc: JASBIR.MAMMO Attending Dr: Reuben Johnson MD Ordering Physician: Reuben Johnsonesults: 2 Benign Findings Date of Service: 02/13/25Follow Up: 1 Year From Orig [facility] Mammogram Procedure(s): MM tomosynthesis diagnostic BI Accession Number(s): [id number] cc: Reuben Johnson MD EXAMINATION: MM DIAGNOSTIC DIGITAL BREAST TOMOSYNTHESIS, BILATERAL Limited left breast ultrasound. CLINICAL INFORMATION: Left breast painful area for 2 months retroareolar region. COMPARISON: Mammography: Comparison is made with relevant prior exams. TECHNIQUE: Digital breast mammography with tomosynthesis is performed in both the craniocaudal and mediolateral oblique views along with computer-aided detection (CAD). FINDINGS: Right: There are no significant masses, abnormal calcifications, or other abnormalities. Left: There is moderate retroareolar flame-shaped gynecomastia. No suspicious calcifications masses or other abnormal findings. Targeted color Doppler ultrasound scanning in the retroareolar region demonstrates moderate nodular retroareolar gynecomastia. There is no sonographic abnormality. Results are provided to the patient at time of visit by the technologist. MM/MM tomosynthesis diagnostic BI IMPRESSION: Right: Negative. Left: Moderate nodular gynecomastia. Benign. ASSESSMENT: BI-RADS BI-RADS 2 - Benign Findings RECOMMENDATION: Clinical evaluation and followup Electronically signed by: Renetta Gutierrez DO 02/13/2025 12:03 PM EDT Dictated By: Renetta Gutierrez DO Signed By: <Electronically signed by Renetta Gutierrez DO in OV> 02/13/25 1203 DD/ 1020 TD/TT: 02/13/25 1039 Treatment Specialist: Reuben Johnson MD IM BI PROCEDURES Edited Re sult - Final * (ABNORMAL) Testosterone, Free (Dialysis) And Total, MS (01/14/2025 9:33 AM EDT) Only the most recent of2 resultswithin the time period is included. Testosterone, Total 222(A) 250 - 1100 ng/dL [facility] Comment:Men with clinically significant hypogonadal symptoms and testosterone valuesrepeatedly in the range of the 200-300 ng/dL or less, may benefit fromtestosterone treatment after adequate risk and benefits counseling.For additional information, please refer tohttps://education.Dely/faq/BUQ084(This link is being provided for informational/educational purposes only.)(Note)This test was developed and its analytical performancecharacteristics have been determined by [employer]. It hasnot been cleared or approved by the FDA. This assay hasbeen validated pursuant to the CLIA regulations and isused for clinical purposes. Testosterone, Free 30.7(A) 35.0 - 155.0 pg/mL [facility] Comment:(Note)This test was developed and its analytical performancecharacteristics have been determined by [employer]. It hasnot been cleared or approved by the FDA. This assay hasbeen validated pursuant to the CLIA regulations and isused for clinical purposes.MDed [id number] [place] [address],[address] [phone] Romain Le MD, PhDTHIS TEST WAS PERFORMED AT:[address] [phone] LE MD,PHD Blood Venous blood specimen / Unknown 01/14/2025 9:33 AM EDT 01/14/2025 2:33 PM EDT Reuben Johnson MD LAB BLOOD ORDERABLES Final Result [facility] [address] [place] [phone] * (ABNORMAL) Estradiol (01/03/2025 8:55 AM EDT) [facility] Estradiol Ultra Sensitive 30(A) < OR = 29 pg/mL [facility] Comment:This test was develo ped and its analytical performancecharacteristics have been determined by [employer].It has not been cleared or approved by the FDA. This assayhas been validated pursuant to the CLIA regulations and isused for clinical purposes.THIS TEST WAS PERFORMED AT:[employer] [id number] [place] [phone] CARRILLO MD,PHD,TANJA Blood Venous blood specimen / Unknown 01/03/2025 8:55 AM EDT 01/03/2025 1:57 PM EDT us Reuben Johnson MD LAB BLOOD ORDERABLES Final Result Performing Organization Address [facility] Co de Phone Number [facility] [address] [place] [phone] * LH (01/03/2025 8:55 AM EDT) Lutenizing Hormone 2.9 1.6 - 15.2 mIU/mL [facility] Comment:THIS TEST WAS PERFOR MED AT:[facility] [place] [id number] MONROY MD Blood Venous blood specimen / Unknown 01/03/2025 8:55 AM EDT 01/03/2025 1:57 PM EDT us Reuben Johnson MD LAB BLOOD ORDERABLES Final Result Performing Organization Address [facility] Co de Phone Number [facility] [address] [place] [phone] * hCG, Total, Quantitative (01/03/2025 8:53 AM EDT) HCG Quantitative <2 mIU/mL [facility] Blood Venous blood specimen / Unknown 01/03/2025 8:53 AM EDT 01/03/2025 1:57 PM EDT us Reuben Johnson MD LAB BLOOD ORDERABLES Final Result Performing Organization Address [facility] Co de Phone Number [facility] [address] [place] [phone] * LIPID PANEL, STANDARD (03/02/2022 11:11 [...] ?? Jeff ANGELES et al. RAMIN. 2013;310(19): 5413-5062 ?? (http://[employer]/faq/TEW860) Non-HDL Cholesterol 102 <130 mg/dL (calc) [facility] Comment: For patients with diabetes plus 1 major ASCVD risk ?? factor, treating to a non-HDL-C goal of <100 mg/dL ?? (LDL-C of <70 mg/dL) is considered a therapeutic ?? option. Triglycerides 138 <150 mg/dL [facility] 03/02/2022 11:1 1 AM EDT Reuben Johnson MD LAB BLOOD ORDERABLES Final Result [facility] [address] from Last 3 Months or Most Recently Relevant to Health Maintenance Insurance [facility] PPO HSN FULL Care Teams Kitchen Manager Relationship Specialty Start Date End Date Reuben Johnson MD [address] [place] [address] PCP - General Internal Medicine 03/08/21
[2025-02-28] MEDS: gadobutroL 7.5 ML VIAL IVPUSH (10:14)
== END 2025-02-28 09:23 | disposition home or self-care (01) ==
LOC: HO.MRI 09:22
PROVIDERS: PCP Internal Medicine; Visit Provider Internal Medicine Endocrinology, Diabetes & Metabolism
DX: E29.1 Testicular hypofunction (principal)
CPT/HCPCS: 70553; A9585

== ENCOUNTER 2025-03-19 15:47 | Outpatient (REF) | payer MEDICARE, SELFPAY ==
--- NOTE | ~2025-03-19 | US_ITS ---
CLINICAL HISTORY: R79.89 - Other specified abnormal findings of blood chemistry --- Additional Notes or Special Instructions: Elevated estrogen level. Rule out testicular mass US scrotum with Color and Duplex doppler. Comparison: None Technique: Real time sonographic imaging, including color-flow imaging, was performed by the veneer jointer returner. Multiple dental detail representative static images were saved for review. Findings: Right testicle normal size and echotexture, 4.7 x 1.8 x 4.3 cm. Normal color flow. Normal arterial and venous spectral doppler waveforms. No intratesticular microlithiasis. Right testicular cyst measuring 4 x 2 x 3 mm and a complex cyst measuring 4 x 3 x 3 mm. Indeterminate echogenic focus upper pole right testicle is indeterminate. Left testicle normal size and echotexture, 3.7 x 2.1 x 3.2 cm. Normal color flow. Normal arterial and venous spectral doppler waveforms. No intratesticular microlithiasis or testicular masses. Left epididymal cyst with septation measuring 1.4 x 0.8 x 0.8 cm Small bilateral hydroceles Impression: 1. Probable incidental testicular cysts on the right. A subtle focus of hyper echogenicity within the right testicle is indeterminate. 2. Epididymal cyst on the left. 3. Small hydroceles. 4. Consider a follow-up ultrasound in 3-4 months time. This document has been electronically signed by: Ivan Lopez MD on 03/20/2025 09:30:48
--- OUTSIDE RECORDS SUMMARY | 2025-03-19 17:53 | XMS_ITS | Clinical Summary ---
Author Organization [employer] Address [address] [facility] [address] [place] [address] Care Team Providers Care Director Of Operations Support Name Role Phone Reuben Johnson MD Primary Care Provider [phone] Allergies No known active allergies Medications lisinopril [...] MORNING 90 tablet 1 02/22/20 25 Active atenolol (Tenormin) 50 MG tablet TAKE 1 TABLET BY MOUTH EVERY DAY IN THE MORNING 90 tablet 11/25/19 25 025 Discontinued Active Problems Problem Noted Date Diagnosed Date Benign prostatic hyperplasia 03/08/2021 Hypercholesterolemia 03/08/2021 Hypertensive disorder 03/08/2021 Encounters Date Type Department Care Team Description 02/21/2025 Refill [facility] [address] [place] [address] Reuben Johnson MD 02/14/2025 Results Follow-Up [facility] [address] [place] [address] Ashley Macias RN BI Mammogram Diagnostic Tomosynthesis Bilateral 02/08/2025 Refill [facility] [address] [place] [address] Reuben Johnson MD Mixed hyperlipidemia 01/31/2025 Telephone [facility] [address] [place] [address] Reuben Johnson MD Care Coordination 01/29/2025 Orders Only [facility] [address] [place] [address] Reuben Johnson MD Gynecomastia, male (Primary Dx) 2025 Telephone [facility] [address] [place] [address] Reuben Johnson MD Results 01/22/2025 Telephone [facility] [address] [place] [address] Reuben Johnson MD Results; Referral 01/17/2025 Telephone [facility] [address] [place] [address] Reuben Johnson MD Results 01/13/2025 Telephone [facility] [address] [place] [address] Reuben Dominguez MD Results 01/13/2025 Orders Only [facility] [address] [place] [address] Reuben Johnson MD Gynecomastia, male (Primary Dx); Hypogonadism in male 01/09/2025 1:00 PM EDT Clinical Support [facility] [address] [place] [address] Andria Marcelo RN Primary hypertension [I10] 01/09/2025 Travel 01/03/2025 Telephone [facility] [address] [place] [address] Reuben Johnson MD 01/03/2025 Telephone [facility] [address] [place] [address] Reuben Johnson MD Medication Question 01/02/2025 1:00 PM EDT Office Visit [facility] [address] [place] [address] Reuben Johnson MD Primary hypertension (Primary Dx); Lichen simplex chronicus; Gynecomastia, male; Dietary counseling; Exercise counseling; Class 2 severe obesity due to excess calories with serious comorbidity and body mass index (BMI) of 35.0 to 35.9 in adult ([facility]) 01/02/2025 Travel 12/28/2024 Refill [facility] [address] [place] [address] Reuben Johnson MD Essential (primary) hypertension from Last 3 Months Immunizations Immunization Administration [...] 62 01/09/2025 1:21 PM EDT Temperature 36.7 C (98 F) 01/02/2025 1:04 PM EDT Respiratory Rate 20 [...] [facility] [address] [place] [address] Reuben Johnson MD [address] [place] [address] Health Maintenance Due Date Last Done Comments [...] season) 2024 04/10/2022, 10/11/2021, 09/13/2021 Influenza Vaccine (Season Ended) 2025 Alcohol/Substance Use Screening 01/02/2026 01/02/2025 Depression Screening [...] Procedure Name Priority Date/Time Associated Diagnosis Comments MR BRAIN W AND WO CONTRAST Routine 02/28/2025 9:21 AM EDT BI US BREAST LIMITED LEFT Routine 02/13/2025 [...] Recently Relevant to Health Maintenance Results * Mr Brain w/ and w/o Contrast (02/28/2025 9:21 AM EDT) Anatomical Region Laterality Modality Brain Magnetic Resonan ce 02/28/2025 9:21 AM EDT Narrative 03/03/2025 8:40 AM EDT [place] [address] Magnetic Resonance Report Signed Patient: Remy Kaufman MR#: [id number] : 1955 Acct:[id number] Age/Sex: 70 / M ADM Date: 02/28/25 Loc: HO.MRI Attending Dr: Caleb Vásquez MD Ordering Physician: Caleb Vásquez MD Date of Service: 02/28/25 Procedure(s): MR head/brain wo/w con Accession Number(s): [id number] cc: Reuben Johnson MD; Caleb Vásquez MD EXAMINATION: MR BRAIN/SELLA WITHOUT AND WITH CONTRAST CLINICAL INFORMATION: Hypogonadism. Rule out pituitary mass. COMPARISON: None TECHNIQUE: Multiplanar multisequence MR imaging of the brain/sella was done prior to and following the intravenous administration of 5 mL Gadavist. Examination was performed on a 1.5 Mary Siemens high-field unit. FINDINGS: SELLA: The sella has a normal concave superior border. No sellar expansion. The infundibulum is midline and is not thickened. There are no signal abnormalities or abnormal regions of enhancement within the pituitary. There are no pituitary masses or cysts. The cavernous sinuses, carotid artery flow voids, parasellar structures and suprasellar structures are normal. The chiasm is normal. IMAGED BRAIN: There is no diffusion restriction. There is no intracranial hemorrhage, acute infarction, mass effect, or edema. Ventricles, sulci, and cisterns are normal in size and configuration for patient age. No shift of midline. There are a few scattered punctate and minimally confluent foci of white matter T2 hyperintensity in the periventricular, subcortical, and hemispheric deep white matter. These foci are nonspecific but statistically most likely relate to small vessel ischemic changes. No distribution or morphology specific to demyelinating disease. No abnormal intra or extra-axial enhancement identified. Midline structures appear normally formed. Posterior fossa structures appear normal. Cerebellar tonsils are appropriately located. Major flow voids are preserved within the skull base. The globes and orbital contents demonstrate no abnormalities. Small mucous retention cyst within the left maxillary sinus. Paranasal sinuses are otherwise clear bilaterally. The mastoids and tympanic cavities are normally aerated. Extracranial soft tissues demonstrate no abnormalities. No suspicious bone marrow changes are evident. Mild degenerative changes present in the bilateral TM joints. Atlantoaxial joint is normal. MR/MR head/brain wo/w con IMPRESSION: 1. Normal examination of the sella and pituitary. There is no sellar expansion, pituitary mass or other abnormality. 2. Remainder the imaged brain demonstrates no evidence of intracranial hemorrhage, acute infarction, mass effect, or edema. 3. There are mild changes of small vessel ischemia. 4. Additional ancillary findings as discussed. Electronically signed by: Berny Kennedy MD 03/03/2025 08:37 AM EDT Dictated By: Berny Kennedy MD Signed By: <Electronically signed by Berny Kennedy MD in OV> 03/03/25 0837 DD/ 0921 TD/TT: 02/28/25 1025 Machine Worker: Procedure Note Freedomotcharaninterpreter, Image - 03/03/2025 [place] [address] Magnetic Resonance Report Signed Patient: Reym Kaufman#: [id number] : 1955cct:[id number] Age/Sex: 70 / MADM Date: 02/28/25 Loc: HO.MRI Attending Dr: Caleb Vásquez MD Ordering Physician: Caleb Vásquez MD Date of Service: 02/28/25 Procedure(s): MR head/brain wo/w con Accession Number(s): [id number] cc: Reuben Johnson MD; Caleb Vásquez MD EXAMINATION: MR BRAIN/SELLA WITHOUT AND WITH CONTRAST CLINICAL INFORMATION: Hypogonadism. Rule out pituitary mass. COMPARISON: None TECHNIQUE: Multiplanar multisequence MR imaging of the brain/sella was done prior to and following the intravenous administration of 5 mL Gadavist. Examination was performed on a 1.5 Mary Siemens high-field unit. FINDINGS: SELLA: The sella has a normal concave superior border. No sellar expansion. The infundibulum is midline and is not thickened. There are no signal abnormalities or abnormal regions of enhancement within the pituitary. There are no pituitary masses or cysts. The cavernous sinuses, carotid artery flow voids, parasellar structures and suprasellar structures are normal. The chiasm is normal. IMAGED BRAIN: There is no diffusion restriction. There is no intracranial hemorrhage, acute infarction, mass effect, or edema. Ventricles, sulci, and cisterns are normal in size and configuration for patient age. No shift of midline. There are a few scattered punctate and minimally confluent foci of white matter T2 hyperintensity in the periventricular, subcortical, and hemispheric deep white matter. These foci are nonspecific but statistically most likely relate to small vessel ischemic changes. No distribution or morphology specific to demyelinating disease. No abnormal intra or extra-axial enhancement identified. Midline structures appear normally formed. Posterior fossa structures appear normal. Cerebellar tonsils are appropriately located. Major flow voids are preserved within the skull base. The globes and orbital contents demonstrate no abnormalities. Small mucous retention cyst within the left maxillary sinus. Paranasal sinuses are otherwise clear bilaterally. The mastoids and tympanic cavities are normally aerated. Extracranial soft tissues demonstrate no abnormalities. No suspicious bone marrow changes are evident. Mild degenerative changes present in the bilateral TM joints. Atlantoaxial joint is normal. MR/MR head/brain wo/w con IMPRESSION: 1. Normal examination of the sella and pituitary. There is no sellar expansion, pituitary mass or other abnormality. 2. Remainder the imaged brain demonstrates no evidence of intracranial hemorrhage, acute infarction, mass effect, or edema. 3. There are mild changes of small vessel ischemia. 4. Additional ancillary findings as discussed. Electronically signed by: Berny Kennedy MD 03/03/2025 08:37 AM EDT Dictated By: Berny Kennedy MD Signed By: <Electronically signed by Berny Kennedy MD in OV> 03/03/25 0837 DD/ 0921 TD/TT: 02/28/25 1025 Machine Worker: [facility] External Provider IMG MRI PROCEDURES Final Result * BI US Breast Limited Left (02/13/2025 10:30 AM EDT) Anatomical Region Laterality Modality Breast Left Ultrasound 02/13/2025 10:3 0 AM EDT Narrative 02/13/2025 12:06 PM EDT [facility] [address] [place] [address] Ultrasound Report Signed Patient: Remy Kaufman MR#: [id number] : 1955 Acct:[id number] Age/Sex: 70 / M ADM Date: 02/13/25 Loc: HO.MAMMO Attending Dr: Reuben Johnson MD Ordering Physician: Reuben Johnson MD Date of Service: 02/13/25 Procedure(s): US breast LT limited mamm only Accession Number(s): [id number] cc: Reuben Johnson MD EXAMINATION: MM DIAGNOSTIC [...] 02/13/25 1203 DD/ 1030 TD/TT: 02/13/25 1054 Machine Worker: Procedure Note Donotuseinterpreter, Image - 02/17/2025 [facility] [address] [place] [address] Ultrasound Report Signed Patient: Remy Kaufman#: [id number] : 7Acct:[id number] Age/Sex: 70 / MADM Date: 02/13/25 Loc: HO.MAMMO Attending Dr: Reuben Johnson MD Ordering Physician: Reuben Johnson MD Date of Service: 02/13/25 Procedure(s): US breast LT limited mamm only Accession Number(s): [id number] cc: Reuben Johnson MD EXAMINATION: MM DIAGNOSTIC [...] 02/13/25 1203 DD/ 1030 TD/TT: 02/13/25 1054 Machine Worker: us Reuben Johnson MD IMG US PROCEDURES Edited Re sult - Final * BI Mammogram Diagnostic Tomosynthesis Bilateral (02/13/2025 10:20 AM EDT) Anatomical Region Laterality Modality Breast Bilateral Mammography 02/13/2025 10:2 0 AM EDT Narrative 02/13/2025 12:06 PM EDT [facility] [address] [place] [address] Mammography Report Signed Patient: Remy Kaufman MR#: [id number] : 1955 Acct:[id number] Age/Sex: 70 / M ADM Date: 02/13/25 Loc: HO.MAMMO Attending Dr: Reuben Johnson MD Ordering Physician: Reuben Johnson MD Results: 2 Benign Findings Date of Service: 02/13/25 Follow Up: 1 Year From [facility] Mammogram Procedure(s): MM tomosynthesis diagnostic BI Accession Number(s): [id number] cc: Reuben Johnson MD EXAMINATION: MM DIAGNOSTIC [...] 02/13/25 1203 DD/ 1020 TD/TT: 02/13/25 1039 Machine Worker: Procedure Note Donotuseinterpreter, Image - 02/17/2025 [place] [facility] [address] [place] [address] Mammography Report Signed Patient: Keith Kaufman#: [id number] : 7Acct:[id number] Age/Sex: 70 / MADM Date: 02/13/25 Loc: HO.MAMMO Attending Dr: Reuben Johnson MD Ordering Physician: Reuben Johnson MDResults: 2 Benign Findings Date of Service: 02/13/25Follow Up: 1 [facility] From [facility] Mammogram Procedure(s): MM tomosynthesis diagnostic BI Accession Number(s): [id number] cc: Reuben Johnson MD EXAMINATION: MM DIAGNOSTIC [...] 02/13/25 1203 DD/ 1020 TD/TT: 02/13/25 1039 Machine Worker: us Reuben Johnson MD IMG BI PROCEDURES Edited Re sult - Final * (ABNORMAL) Testosterone, Free (Dialysis) And Total, MS (01/14/2025 9:33 AM EDT) Only the most recent of2 resultswithin the time period is included. Testosterone, Total 222(A) 250 - 1100 ng/dL [facility] Comment:Men with clinically significant hypogonadal symptoms and testosterone valuesrepeatedly in the range of the 200-300 ng/dL or less, may benefit fromtestosterone treatment after adequate risk and benefits counseling.For additional information, please refer totps://education.[employer].MWHS/faq/DGT873(This link is being provided for informational/educational purposes only.)(Note)This test was developed and its analytical performancecharacteristics have been determined by [employer]. It hasnot been cleared or approved by the FDA. This assay hasbeen validated pursuant to the CLIA regulations and isused for clinical purposes. Testosterone, Free 30.7(A) 35.0 - 155.0 pg/mL [facility] Comment:(Note)This test was developed and its analytical performancecharacteristics have been determined by [employer]. It hasnot been cleared or approved by the FDA. This assay hasbeen validated pursuant to the CLIA regulations and isused for clinical purposes.MDed [address] [place] [address],[address] [phone] Romain Le MD, PhDTHIS TEST WAS PERFORMED AT:[place] [address] [place] [phone] LE MD,PHD Blood Venous blood specimen / Unknown 01/14/2025 9:33 AM EDT 01/14/2025 2:33 PM EDT us Reuben Johnson MD LAB BLOOD ORDERABLES Final Result [facility] [address] [place] [address] [phone] * (ABNORMAL) Estradiol (01/03/2025 8:55 AM EDT) [facility] Estradiol Ultra Sensitive 30(A) < OR = 29 pg/mL [facility] Comment:This test was devlázaroo ped and its analytical performancecharacteristics have been determined by [employer].It has not been cleared or approved by the FDA. This assayhas been validated pursuant to the CLIA regulations and isused for clinical purposes.THIS TEST WAS PERFORMED AT:[employer] [id number] [place] [phone] CARRILLO MD,PHD,TANJA Blood Venous blood specimen / Unknown 01/03/2025 8:55 AM EDT 01/03/2025 1:57 PM EDT us Reuben Johnson MD LAB BLOOD ORDERABLES Final Result Performing Organization Address [facility] Co de Phone Number [facility] [address] [place] [phone] * LH (01/03/2025 8:55 AM EDT) Lutenizing Hormone 2.9 1.6 - 15.2 mIU/mL [facility] Comment:THIS TEST WAS PERFOR MED AT:[facility] [place] [phone] MONROY MD Blood Venous blood specimen / Unknown 01/03/2025 8:55 AM EDT 01/03/2025 1:57 PM EDT us Reuben Johnson MD LAB BLOOD ORDERABLES Final Result Performing Organization Address [facility] Phone Number [facility] [address] [place] [phone] * hCG, Total, Quantitative (01/03/2025 8:53 AM EDT) HCG Quantitative <2 mIU/mL [facility] Blood Venous blood specimen / Unknown 01/03/2025 8:53 AM EDT 01/03/2025 1:57 PM EDT us Reuben Johnson MD LAB BLOOD ORDERABLES Final Result Performing Organization Address [facility] Co de Phone Number [facility] [address] [place] [phone] * LIPID PANEL, STANDARD (03/02/2022 11:11 AM EDT) Chol/HDLC Ratio 2.5 <5.0 (calc) [facility] Cholesterol, Total 170 <200 mg/dL [facility] HDL Cholesterol 68 > OR = 40 mg/dL [facility] LDL Cholesterol 78 mg/dL (calc) [facility] Comment: Reference range: <100 Desirable range <100 mg/dL for primary prevention; <70 mg/dL for patients with CHD or diabetic patients with > or = 2 CHD risk factors. LDL-C is now calculated using the Glen calculation, which is a validated novel method providing better accuracy than the Friedewald equation in the estimation of LDL-C. Jeff SS et al. RAMIN. 2013;310(19): 3659-6218 (http://education.[employer].MWHS/faq/TFQ883) Non-HDL Cholesterol 102 <130 mg/dL (calc) [facility] Comment: For patients with diabetes plus 1 major ASCVD risk factor, treating to a non-HDL-C goal of <100 mg/dL (LDL-C of <70 mg/dL) is considered a therapeutic option. Triglycerides 138 <150 mg/dL [facility] 03/02/2022 11:1 1 AM EDT Reuben Johnson MD LAB BLOOD ORDERABLES Final Result [facility] [address] from Last 3 Months or Most Recently Relevant to Health Maintenance Insurance [facility] F[facility] Care Teams Director Of Operations Support Relationship Specialty Start Date End Date Reuben Johnson MD [address] [place] [address] PCP - General Internal Medicine 03/08/21
== END 2025-03-19 15:48 | disposition home or self-care (01) ==
LOC: HO.US 15:47
PROVIDERS: Visit Provider Internal Medicine Endocrinology, Diabetes & Metabolism
DX: R79.89 Other specified abnormal findings of blood chemistry (principal)
CPT/HCPCS: 76870

== ENCOUNTER → 2025-03-19 15:51 | Outpatient (BNV) | payer MEDICARE, SELFPAY | PROVIDERS: Visit Provider Radiology Diagnostic Radiology | DX: N50.3 Cyst of epididymis (principal); N43.3 Hydrocele, unspecified | CPT/HCPCS: 76870 ==

== ENCOUNTER 2025-08-25 11:03 | Outpatient (REF) | payer MEDICARE, OTHER, SELFPAY ==
--- OUTSIDE RECORDS SUMMARY | 2025-08-25 10:00 | XMS_ITS | Encounter Summary ---
Author Organization [employer] Address [address] [facility] 7 [place] [address] Care Team Providers Care Timber Management Technician Name Role Phone Reuben Johnson MD Primary Care Provider [phone] Reason for Visit * Reason Comments Follow-up Chronic conditions Encounter Details Date Type Department Care Team ([facility] Contact Info) Description 08/25/2025 10:00 AM EST Office Visit [facility] MED [facility] PEDS [address] [place] [address] Reuben Johnson MD [address] [place] [address] Lichen simplex chronicus (Primary Dx); Primary hypertension; Dry skin Social History Tobacco Use Types Packs/Day Years [...] Sign Reading Time Taken Comments Blood Pressure 122/80 08/25/2025 10:12 AM EST Pulse 66 08/25/2025 10:12 AM EST Temperature 36.6 C (97.8 F) 08/25/2025 10:12 AM EST Respiratory Rate 16 08/25/2025 10:12 AM EST Oxygen Saturation 97% 08/25/2025 10:12 AM EST Inhaled Oxygen Concentration - - Weight 101 kg (223 lb) 08/25/2025 10:12 AM EST Height 167.6 cm (5' 6 ) 08/25/2025 10:12 AM EST Body Mass Index 35.99 08/25/2025 10:12 AM EST documented in this encounter Progress Notes * Reuben Johnson MD - 08/25/2025 10:00 AM EST SUBJECTIVE Remy Kaufman is a 70 y.o. male who presents for Follow-up (Chronic conditions ). HPI Santiago Kaufman, 70-year-old male - Reports itching and scratching episodes, with pleasure from scratching, cautions not to scratch to the point of bleeding - Using Vyzaen cream daily in the morning for skin symptoms, reports good control with current regimen - Previous similar skin symptoms on leg, resolved - Reports dry skin and frequent scratching, including use of a assistant professor of life sciences in the morning - Denies current bothersome symptoms except for itching - Completed Cologuard test, reports negative result - Denies current cold symptoms, mentions prior illness lasting 4 weeks after flu shot Problem List[1] Allergies[2] Medications Ordered Prior to Encounter[3] Review of Systems Constitutional: Negative for chills, diaphoresis and fatigue. Respiratory: Negative for cough, choking and shortness of breath. Cardiovascular: Negative for leg swelling. Gastrointestinal: Negative for anal bleeding, blood in stool and constipation. Skin: Positive for rash. Psychiatric/Behavioral: Negative for decreased concentration, dysphoric mood and hallucinations. OBJECTIVE Vitals: 08/25/25 1012 BP: 122/80 BP Location: Right arm Patient Position: Sitting BP Cuff Size: Large adult Pulse: 66 Resp: 16 Temp: 97.8 ??F (36.6 ??C) TempSrc: Oral SpO2: 97% Weight: 223 lb (101 kg) Height: 5' 6 (1.676 m) Physical Exam Constitutional: General: He is not in acute distress. Appearance: Normal appearance. He is not ill-appearing, toxic-appearing or diaphoretic. Pulmonary: Effort: Pulmonary effort is normal. Skin: Comments: Multiple erythematous and lichenified polygonal papules of the right and left distal leg and feet. Neurological: Mental Status: He is alert. Assessment/Plan Assessment/Plan Diagnoses and all orders for this visit: Lichen simplex chronicus - betamethasone valerate (Valisone) 0.1 % ointment; Apply topically if needed in the morning and atbedtime (dryness). Primary hypertension - CBC auto differential; Future - Comprehensive Metabolic Panel; Future - Lipid Panel, Standard; Future - TSH with Reflex to Free T4; Future - Hepatitis C Antibody with Reflex to HCV, RNA, Quantitative, Real-Time PCR; Future Dry skin Lichen simplex chronicus: - Diagnosis of lichen simplex chronicus confirmed. - Prescribed a stronger topical medication to be used twice daily for 2 weeks. After completion, recommended transition to CeraVe cream for maintenance. Provided samples of CeraVe cream. Advised to apply CeraVe after showering. Instructed to avoid scratching to prevent bleeding. Primary hypertension: - Hypertension is stable. - Monitor blood pressure. Follow-up appointment scheduled in 6 months unless problems arise. Dry skin: - Dry skin noted. - Recommended use of CeraVe cream for skin hydration. Provided samples. Advised to apply after showering. This note was drafted using Ambient (AI) technology. The patient/patient's guardian has been informed and has consented to the use of this technology: Yes [1] Patient Active Problem List Diagnosis Benign prostatic hyperplasia Hypercholesterolemia Hypertensive disorder Dry skin [2] No Known Allergies [3] Current Outpatient Medications on File Prior to Visit Medication Sig Dispense Refill amLODIPine (Norvasc) 5 MG tablet TAKE 1 TABLET BY MOUTH EVERY DAY 90 tablet 3 atenolol (Tenormin) 50 MG tablet TAKE 1 TABLET BY MOUTH EVERY DAY IN THE MORNING 90 tablet 1 hydroCHLOROthiazide (HYDRODiuril) 25 MG tablet TAKE 1 [...] BY MOUTH EVERY DAY 90 capsule 1 [DISCONTINUED] triamcinolone (Kenalog) 0.5 % cream Apply topically 2 times daily. 30 g 1 No current facility-administered medications on file prior to visit. documented in this encounter Plan of Treatment Scheduled Orders Name Type Priority Associated Diagnoses Orde r Schedule CBC auto differential Lab Routine Primary hypertension Expected: 08/25/2025 (Approximate), Expires: 08/25/2026 Comprehensive Metabolic Panel Lab Routine Primary hypertension Expected: 08/25/2025 (Approximate), Expires: 08/25/2026 Lipid Panel, Standard Lab Routine Primary hypertension Expected: 08/25/2025 (Approximate), Expires: 08/25/2026 TSH with Reflex to Free T4 Lab Routine Primary hypertension Expected: 08/25/2025 (Approximate), Expires: 08/25/2026 Hepatitis C Antibody with Reflex to HCV, RNA, Quantitative, Real-Time PCR Lab Routine Primary hypertension Expected: 08/25/2025, Expires: 08/25/2026 documented as of this encounter Visit Diagnoses Diagnosis Lichen simplex chronicus- Primary Lichenification and lichen simplex chronicus Primary hypertension Unspecified essential hypertension Dry skin Other symptoms involving skin and integumentary tissues documented in this encounter Additional Health Concerns Assessment Noted Time PHQ-9 Depression Total Score: 0 01/03/20 25 1:33 PM EDT documented as of this encounter Care Teams Timber Management Technician Relationship Specialty Start Date End Date Reuben Johnson MD [address] [place] [address] PCP - General Internal Medicine 03/08/21 documented as of this encounter
--- OUTSIDE RECORDS SUMMARY | 2025-08-25 14:12 | XMS_ITS | Encounter Summary ---
Author Organization [employer] Address [address] [place] [address] [address] [place] [address] Care Team Providers Care Computer Game Tester Name Role Phone Reuben Johnson MD Primary Care Provider [phone] Reason for Visit * Reason Comments Med Refill Encounter Details Date Type Department Care Team (Late st Contact Info) Description 11/16/2024 Refill [facility] MED & PEDS [address] [place] [address] Reuben Johnson MD [address] [place] [address] Venous insufficiency (chronic) (peripheral) Social History Tobacco [...] as of this encounter Plan of Treatment Not on file documented as of this encounter Visit Diagnoses Diagnosis Venous insufficiency (chronic) (peripheral) Unspecified venous (peripheral) insufficiency documented in this encounter Care Teams Computer Game Tester Relationship Specialty Start Date End Date Reuben Johnson MD [address] [place] [address] PCP - General Internal Medicine 03/08/21 documented as of this encounter
--- OUTSIDE RECORDS SUMMARY | 2025-08-25 14:12 | XMS_ITS | Encounter Summary ---
Author Organization [employer] Address [address] [place] [address] 7 [place] [address] Care Team Providers Care Cone Sewer Name Role Phone Reuben Johnson MD Primary Care Provider [phone] Reason for Visit * Reason Comments Med Refill Encounter Details Date Type Department Care Team (Late st Contact Info) Description 11/11/2024 Refill [facility] MED [facility] PEDS [address] [place] [address] Reuben Johnson MD [address] [place] [address] Venous insufficiency (chronic) (peripheral) Social History Tobacco [...] insufficiency documented in this encounter Care Teams Cone Sewer Relationship Specialty Start Date End Date Reuben Johnson MD [address] [place] [address] PCP - General Internal Medicine 03/08/21 documented as of this encounter
--- OUTSIDE RECORDS SUMMARY | 2025-08-25 14:12 | XMS_ITS | Encounter Summary ---
Author Organization [employer] Address [address] [place] [address] [address], [place] [address] Care Team Providers Care Eeg Technician Name Role Phone Reuben Johnson MD Primary Care Provider [phone] Reason for Referral * Imaging (Routine) - Closed Specialty Diagnoses / Procedures Referred By Gerson bailey Referred To Contact Radiology Diagnoses Gynecomastia, male Procedures BI US Breast Limited Right Reuben Johnson MD [address] [place] [address] Phone: tel: fax: [address] [address] Phone: tel: fax: Referral ID Status Reason Start Date Expiration Date Visits Re quested Visits Authorized [id number] Closed 01/29/2025 01/29/2026 1 1 * Imaging (Routine) - Closed Specialty Diagnoses / Procedures Referred By Gerson t Referred To Contact Radiology Diagnoses Gynecomastia, male Procedures BI US Breast Limited Left Reuben Johnson MD [address] [place] [address] Phone: tel: fax: [address] [address] Phone: tel: fax: Referral ID Status Reason Start Date Expiration Date Visits Re quested Visits Authorized [id number] Closed 01/29/2025 01/29/2026 1 1 Encounter Details Date Type Department Care Team ([facility] st Contact Info) Description 01/29/2025 Orders Only [facility] MED & PEDS [address] [place] [address] Reuben Johnson MD [address] [place] [address] Gynecomastia, male (Primary Dx) Social History Tobacco [...] as of this encounter Plan of Treatment Scheduled Orders Name Type Priority Associated Diagnoses Orde r Schedule BI US Breast Limited Right Imaging Routine Gynecomastia, male Expected: 01/29/2025, Expires: 01/29/2026 documented as of this encounter Procedures Procedure Name Priority Date/Time Associated Diagnosis Comments MR BRAIN W AND WO CONTRAST Routine 02/28/2025 9:21 AM EDT BI US BREAST LIMITED LEFT Routine 02/13/2025 10:30 AM EDT Gynecomastia, male BI MAMMOGRAM DIAGNOSTIC TOMOSYNTHESIS BILATERAL Routine 02/13/2025 10:20 AM EDT documented in this encounter Results * Mr Brain w/ and w/o Contrast (02/28/2025 9:21 AM EDT) Anatomical Region Laterality Modality Brain Magnetic Resonan ce 02/28/2025 9:21 AM EDT Narrative 03/03/2025 8:40 AM EDT [place] [address] Magnetic Resonance Report Signed Patient: Remy Kaufman MR#: [id number] : 1955 Acct:[id number] Age/Sex: 70 / M ADM Date: 02/28/25 Loc: HO.MRI Attending Dr: Caleb Vásquez MD Ordering Physician: Caleb Vásquez MD Date of Service: 02/28/25 Procedure(s): MR head/brain wo/w con Accession Number(s): [id number] cc: Reuben Johnson MD; Caleb Vásquez MD [...] 03/03/25 0837 DD/ 0921 TD/TT: 02/28/25 1025 Mixing Roll Operator: Procedure Note Donotuseinterpreter, Image - 03/03/[address] [address] Magnetic Resonance Report Signed Patient: Remy Kaufman#: [id number] : 7Acct:[id number] Age/Sex: 70 / MADM Date: 02/28/25 Loc: HO.MRI Attending Dr: Caleb Vásquez MD Ordering Physician: Caleb Vásquez MD Date of Service: 02/28/25 Procedure(s): MR head/brain wo/w con Accession Number(s): [id number] cc: Reuben Johnson MD; Caleb Vásquez MD [...] 03/03/25 0837 DD/ 0921 TD/TT: 02/28/25 1025 Mixing Roll Operator: [facility] External Provider IMG MRI PROCEDURES Final Result * BI US Breast Limited Left (02/13/2025 10:30 AM EDT) Anatomical Region Laterality Modality Breast Left Ultrasound 02/13/2025 10:3 0 AM EDT Narrative 02/13/2025 12:06 PM EDT [address] [place] [address] Ultrasound Report Signed Patient: Remy Kaufman MR#: [id number] : 1955 Acct:[id number] Age/Sex: 70 / M ADM Date: 02/13/25 Loc: HO.MAMMO Attending Dr: Reuben Johnson MD Ordering Physician: Reuben Johnson MD Date of Service: 02/13/25 Procedure(s): US breast LT limited mamm only Accession Number(s): [id number] cc: Reuben Johnson MD EXAMINATION: MM DIAGNOSTIC [...] Renetta Gutierrez DO 02/13/2025 12:03 PM EDT RP Dictated By: Renetta Gutierrez DO Signed By: <Electronically signed by Renetta Gutierrez DO in OV> 02/13/25 1203 DD/ 1030 TD/TT: 02/13/25 1054 Mixing Roll Operator: Procedure Note Donotuseinterpreter, Image - 02/17/2025 [facility] [address] [place] [address] Ultrasound Report Signed Patient: Keith Kaufman#: [id number] : 7Acct:[id number] Age/Sex: 70 / MADM Date: 02/13/25 Loc: HO.MAMMO Attending Dr: Reuben Johnson MD Ordering Physician: Reuben Johnson MD Date of Service: 02/13/25 Procedure(s): US breast LT limited mamm only Accession Number(s): [id number] cc: Reuben Johnson MD EXAMINATION: MM DIAGNOSTIC [...] 02/13/25 1203 DD/ 1030 TD/TT: 02/13/25 1054 Mixing Roll Operator: us Reuben Johnson MD IMG US PROCEDURES Edited Re sult - Final * BI Mammogram Diagnostic Tomosynthesis Bilateral (02/13/2025 10:20 AM EDT) Anatomical Region Laterality Modality Breast Bilateral Mammography 02/13/2025 10:2 0 AM EDT Narrative 02/13/2025 12:06 PM EDT [facility] [address] [place] [address] Mammography Report Signed Patient: Remy Kaufman MR#: [id number] : 1955 Acct:[id number] Age/Sex: 70 / M ADM Date: 02/13/25 Loc: HO.MAMMO Attending Dr: Reuben Johnson MD Ordering Physician: Reuben Johnson MD Results: 2 Benign Findings Date of Service: 02/13/25 Follow Up: 1 Year From Orig inal Mammogram Procedure(s): MM tomosynthesis diagnostic BI Accession Number(s): [id number] cc: Reuben Johnson MD EXAMINATION: MM DIAGNOSTIC [...] Renetta Gutierrez DO 02/13/2025 12:03 PM EDT RP Dictated By: Renetta Gutierrez DO Signed By: <Electronically signed by Renetta Gutierrez DO in OV> 02/13/25 1203 DD/ 1020 TD/TT: 02/13/25 1039 Mixing Roll Operator: Procedure Note Donotuseinterpreter, Image - 02/17/2025 [facility] [address] [place] [address] Mammography Report Signed Patient: Remy Kaufman#: [id number] : 7Acct:[id number] Age/Sex: 70 / MADM Date: 02/13/25 Loc: HO.MAMMO Attending Dr: Reuben Johnson MD Ordering Physician: Reuben Johnson MDResults: 2 Benign Findings Date of Service: 02/13/25Follow Up: 1 Year From [facility] Mammogram Procedure(s): MM tomosynthesis diagnostic BI Accession Number(s): [id number] cc: Reuben Johnson MD EXAMINATION: MM DIAGNOSTIC [...] Renetta Gutierrez DO 02/13/2025 12:03 PM EDT RP Workstation: [employer] Dictated By: Renetta Gutierrez DO Signed By: <Electronically signed by Renetta Gutierrez DO in OV> 02/13/25 1203 DD/ 1020 TD/TT: 02/13/25 1039 Mixing Roll Operator: Reuben Johnson MD IMG BI PROCEDURES Edited Re sult - Final documented in this encounter Visit Diagnoses Diagnosis Gynecomastia, male- Primary Hypertrophy of breast documented in this encounter Additional Health Concerns Assessment Noted Time PHQ-9 Depression Total Score: 0 01/03/20 25 1:33 PM EDT documented as of this encounter Care Teams Eeg Technician Relationship Specialty Start Date End Date Reuben Johnson MD [address] [place] [address] PCP - General Internal Medicine 03/08/21 documented as of this encounter
--- OUTSIDE RECORDS SUMMARY | 2025-08-25 14:12 | XMS_ITS | Encounter Summary ---
Author Organization [employer] Address [address] [facility] 7t [place] [address] Care Team Providers Care Sales Development Executive Name Role Phone Reuben Johnson MD Primary Care Provider [phone] Encounter Details Date Type Department Care Team (Latest Contact Info) Description 08/25/2025 Travel Social History Tobacco Use Types Packs/Day [...] documented as of this encounter Care Teams Sales Development Executive Relationship Specialty Start Date End Date Reuben Johnson MD [address] [place] [address] PCP - General Internal Medicine 03/08/21 documented as of this encounter
--- OUTSIDE RECORDS SUMMARY | 2025-08-25 14:12 | XMS_ITS | Clinical Summary ---
Author Organization [employer] Address [address] [facility] 7t [place] [address] Care Team Providers Care Regional Sales Associate Name Role Phone Reuben Johnson MD Primary Care Provider [phone] Allergies No known active allergies Medications lisinopril [...] A DAY 90 tablet 10/19/19 24 Active amLODIPine (Norvasc) 5 MG tabletIndications :Essential (primary) hypertension TAKE 1 TABLET BY MOUTH EVERY DAY 90 tablet 3 12/31/19 25 Active simvastatin (Zocor) 40 MG tabletIndications :Mixed hyperlipidemia TAKE 1 TABLET BY MOUTH EVERY DAY IN THE EVENING 90 tablet 3 02/11/20 25 Active hydroCHLOROthiazi de (HYDRODiuril) 25 MG tablet TAKE 1 TABLET BY MOUTH EVERY DAY IN THE MORNING 90 tablet 1 05/19/20 25 Active tamsulosin (Flomax) 0.4 MG 24 hr capsuleIndication s:Benign prostatic hyperplasia with lower urinary tract symptoms TAKE 1 CAPSULE BY MOUTH EVERY DAY 90 capsule 1 06/09/20 25 Active atenolol (Tenormin) 50 MG tablet TAKE 1 TABLET BY MOUTH EVERY DAY IN THE MORNING 90 tablet 1 08/07/20 25 Active betamethasone valerate (Valisone) 0.1 % ointmentIndicatio ns:Lichen simplex chronicus Apply topically if needed in the morning and at bedtime (dryness). 45 g 2 08/25/20 25 Active atenolol (Tenormin) 50 MG tablet TAKE 1 TABLET BY MOUTH EVERY DAY IN THE MORNING 90 tablet 1 02/22/20 25 2024 Discontinued triamcinolone (Kenalog) 0.5 % creamIndications: Venous insufficiency (chronic) (peripheral),Lich en simplex chronicus Apply topically 2 times daily. 30 g 1 04/21/20 25 2024 Discontinued(T herapy completed) Active Problems Problem Noted Date Diagnosed Date Dry skin 08/25/2025 Benign prostatic hyperplasia 03/08/2021 Hypercholesterolemia 03/08/2021 Hypertensive disorder 03/08/2021 Encounters Date Type Department Care Team Description 08/25/2025 10:00 AM EST Office Visit [facility] [address] [place] [address] Reuben Johnson MD Lichen simplex chronicus (Primary Dx); Primary hypertension; Dry skin 08/25/2025 Travel 08/18/2025 Patient Outreach [facility] [address] [place] [address] Reuben Johnson MD Pre-visit Planning (SDOH screening completed on 01/02/25 ) 08/07/2025 Refill [facility] [address] [place] [address] Reuben Johnson MD 06/08/2025 Refill [facility] [address] [place] [address] Reuben Johnson MD Benign prostatic hyperplasia with lower urinary tract symptoms from Last 3 Months Immunizations Immunization Administration Dates Next Due Moderna Covid-19 Vaccine 12+ 10/11/2021,09/13/20 21 Pneumococcal Conjugate PCV 20 04/21/2025 Tdap 04/21/2025 Zoster, Unspecified 09/15/2024 Social History Tobacco Use [...] Mass Index 35.99 08/25/2025 10:12 AM EST Plan of Treatment Health Maintenance Due Date Last Done Comments CT Colonography 1957 Colonoscopy 1957 FIT 1957 Sigmoidoscopy 1957 Hepatitis C Screening 1975 Zoster Vaccines (1 of 2) 2007 09/15/2024 COVID-19 Vaccine (2024-2 6 season) 2025 04/10/2022, 10/11/2021, 09/13/2021 Alcohol/Substance Use Screening 01/02/2026 01/02/2025 Depression Screening 01/02/2026 01/02/2025, 01/02/2025 SDOH Screening 01/02/2026 01/02/2025 Influenza Vaccine (#1) 2026 Postp oned from 06/02/2025 (Patient Refused) FOBT 05/05/2026 05/05/2025 Tobacco Screening 08/25/2026 08/25/2025 Lipid Panel 03/02/2027 03/02/2022 Colorectal Cancer Screening 05/05/2028 FIT DNA/Cologuard 05/05/2028 05/05/2025 RSV Patients and Patients Aged 60 years or older (1 - 1-dose 75+ series) 01/24/2032 DTaP/Tdap/Td Vaccines (2 - T d or Tdap) 04/21/2035 04/21/2025 Pneumococcal Vaccine: 50+ Years Completed 04/21/2025 HIB Vaccines Aged Out No longer eligi [...] Procedure Name Priority Date/Time Associated Diagnosis Comments LAB COLOGUARD COLON CANCER SCREEN Routine 05/05/2025 7:45 AM EDT Screening for colon cancer LIPID PANEL, STANDARD Routine 03/02/2022 11:11 AM EDT from Last 3 Months or Most Recently Relevant to Health Maintenance Results * Cologuard?? colon cancer screening (05/05/2025 7:45 AM EDT) Cologuard Result Negative Negative 05/10/20 3:43 PM EDT [facility] (CLIA #:[id number]) Comment: The Cologuard (TM) test was performed on this specimen. NEGATIVE TEST RESULT. A negative Cologuard result indicates a low likelihood that a colorectal cancer (CRC) or advanced adenoma (adenomatous polyps with more advanced pre-malignant features) is present. The chance that a person with a negative Cologuard test has a colorectal cancer is less than 1 in 1500 (negative predictive value >99.9%) or has an advanced adenoma is less than 5.3% (negative predictive value 94.7%). These data are based on a prospective cross-sectional study of 10,000 individuals at average risk for colorectal cancer who were screened with both Cologuard and colonoscopy. (Red T. et al, N Engl J Med 2014;370(14):1286- 1297) The normal value (reference range) for this assay is negative. COLOGUARD RE-SCREENING RECOMMENDATION: Periodic colorectal cancer screening is an important part of preventive healthcare for asymptomatic individuals at average risk for colorectal cancer. Following a negative Cologuard result, the [place] [employer] Society and U.S. Multi-Society Task Force screening guidelines recommend a Cologuard re-screening interval of 3 years. References: [place] [employer] Guideline for Colorectal Cancer Screening: https://www.cancer.org/cancer/hmufj-tttoew-vpeylt/jrqzpwuxf-hmngkvhxb-lqexwtm/ac s-rec ommendations.html.; Martin FABIAN, Joe HYMAN, Hien GONZALEZ, Colorectal Cancer Screening: Recommendations for Physicians and Patients from the U.S. Multi-Society Task Force on Colorectal Cancer Screening , Am J Gastroenterology 2017; 112:3467-3880. TEST DESCRIPTION: Composite algorithmic analysis of stool DNA-biomarkers with hemoglobin immunoassay. Quantitative values of individual biomarkers are not reportable and are not associated with individual biomarker result reference ranges. Cologuard is intended for colorectal cancer screening of adults of either sex, 45 years or older, who are at average-risk for colorectal cancer (CRC). Cologuard has been approved for use by the U.S. FDA. The performance of Cologuard was established in a cross sectional study of average-risk adults aged 50-84. Cologuard performance in patients ages 45 to 49 years was estimated by sub-group analysis of near-age groups. Colonoscopies performed for a positive result may find as the most clinically significant lesion: colorectal cancer [4.0%], advanced adenoma (including sessile serrated polyps greater than or equal to 1cm diameter) [20%] or non- advanced adenoma [31%]; or no colorectal neoplasia [45%]. These estimates are derived from a prospective cross-sectional screening study of 10,000 individuals at average risk for colorectal cancer who were screened with both Cologuard and colonoscopy. (Red Lima. et al, N Engl J Med 2014;370(14):4738-0109.) Cologuard may produce a false negative or false positive result (no colorectal cancer or precancerous polyp present at colonoscopy follow up). A negative Cologuard test result does not guarantee the absence of CRC or advanced adenoma (pre-cancer). The current Cologuard screening interval is every 3 years. ([place] Cancer Society and U.S. Multi-Society Task Force). Cologuard performance data in a 10,000 patient pivotal study using colonoscopy as the reference method can be accessed at the following location: www.[employer]/results. Additional description of the Cologuard test process, warnings and precautions can be found at www.E Inkrd.com. Stool specimen (specimen) Rectal contents / Unknown 05/05/2025 7:45 AM EDT 05/06/2025 11:01 AM EDT us Reuben Johnson MD LAB MOLECULAR DIAGNOSTICS O RDERABLES Final Result [facility] (CLIA #:[id number]) [address] [place] [address], * LIPID PANEL, STANDARD (03/02/2022 11:11 AM EDT) Chol/HDLC Ratio 2.5 <5.0 (calc) [facility] Cholesterol, Total 170 <200 mg/dL [facility] HDL Cholesterol 68 > OR = 40 mg/dL [facility] LDL Cholesterol 78 mg/dL (calc) [facility] Comment: Reference range: <100 Desirable range <100 mg/dL for primary prevention; <70 mg/dL for patients with CHD or diabetic patients with > or = 2 CHD risk factors. LDL-C is now calculated using the Glen calculation, which is a validated novel method providing better accuracy than the Friedewald equation in the estimation of LDL-C. Jeff SS et al. RAMIN. 2013;310(19): 3655-9899 (http://education.[employer]/faq/LKP268) Non-HDL Cholesterol 102 <130 mg/dL (calc) [facility] Comment: For patients with diabetes plus 1 major ASCVD risk factor, treating to a non-HDL-C goal of <100 mg/dL (LDL-C of <70 mg/dL) is considered a therapeutic option. Triglycerides 138 <150 mg/dL [facility] 03/02/2022 11:1 1 AM EDT Reuben Johnson MD LAB BLOOD ORDERABLES Final Result [facility] [address] from Last 3 Months or Most Recently Relevant to Health Maintenance Insurance [employer] Care Teams Regional Sales Associate Relationship Specialty Start Date End Date Reuben Johnson MD [address] [place] [address] PCP - General Internal Medicine 03/08/21
--- OUTSIDE RECORDS SUMMARY | 2025-08-25 14:12 | XMS_ITS | Encounter Summary ---
Author Organization [employer] Address [address] [facility] [address] [place] [address] Care Team Providers Care Certified Ethical Hacker Name Role Phone Reuben Johnson MD Primary Care Provider [phone] Encounter Details Date Type Department Care Team (Late st Contact Info) Description 02/22/2023 Orders Only [facility] [address] [place], [place] [phone] Reuben Johnson MD [address] [place], [place] [phone] Low back pain at multiple sites (Primary [...] Primary documented in this encounter Care Teams Certified Ethical Hacker Relationship Specialty Start Date End Date Reuben Johnson MD [address] [place], [place] [phone] PCP - General Internal Medicine 03/08/21 documented as of this encounter
--- OUTSIDE RECORDS SUMMARY | 2025-08-25 14:12 | XMS_ITS | Encounter Summary ---
Author Organization [employer] Address [address] [facility] [address] [place] [address] Care Team Providers Care Judicial Administrative Assistant Name Role Phone Reuben Johnson MD Primary Care Provider [phone] Encounter Details Date Type Department Care Team (Late st Contact Info) Description 11/11/2022 Orders Only [facility] [address] [place] [address] Reuben Johnson MD [address] [place], [place] [phone] Low back pain at multiple sites (Primary [...] Primary documented in this encounter Care Teams Judicial Administrative Assistant Relationship Specialty Start Date End Date Reuben Johnson MD [address] [place] [address] PCP - General Internal Medicine 03/08/21 documented as of this encounter
--- OUTSIDE RECORDS SUMMARY | 2025-08-25 14:12 | XMS_ITS | Encounter Summary ---
Author Organization [employer] Address [address] [place] [address] Care Team Providers Care Interface Engineer Name Role Phone Reuben Johnson MD Primary Care Provider [phone] Reason for Referral * Consultation (Routine) - Closed Specialty Diagnoses / Procedures Referred By Contac t Referred To Contact Endocrinology Diagnoses Gynecomastia, male Hypogonadism in male Reuben Johnson MD [address] [place] [address] Phone: tel: fax: [facility] [address] [place] [address] Phone: tel: fax: Referral ID Status Reason Start Date Expiration Date V isits Requested Visits Authorized [id number] Closed Specialty Services Required 01/21/2025 01/21/2026 1 1 Encounter Details Date Type Department Care Team (Late st Contact Info) Description 01/13/2025 Orders Only [facility] [address] [place], [place] [phone] Reuben Johnson MD [address] [place], [place] [phone] Gynecomastia, male (Primary Dx); Hypogonadism in male [...] of this encounter Plan of Treatment Scheduled Referrals Name Type Priority Associated Diagnoses [...] Testosterone, Total 222(A) 250 - 1100 ng/dL [facility] Comment:Men with clinically significant hypogonadal symptoms and testosterone valuesrepeatedly in the range of the 200-300 ng/dL or less, may benefit fromtestosterone treatment after adequate risk and benefits counseling.For additional information, please refer totps://education.[employer]/faq/PIO316(This link is being provided for informational/educational purposes only.)(Note)This test was developed and its analytical performancecharacteristics have been determined by [employer]. It hasnot been cleared or approved by the FDA. This assay hasbeen validated pursuant to the CLIA regulations and isused for clinical purposes. Testosterone, Free 30.7(A) 35.0 - 155.0 pg/mL [facility] Comment:(Note)This test was developed and its analytical performancecharacteristics have been determined by [employer]. It hasnot been cleared or approved by the FDA. This assay hasbeen validated pursuant to the CLIA regulations and isused for clinical purposes.[facility] [id number] [address],[address] [place] [address] [phone] Romain Le MD, PhDTHIS TEST WAS PERFORMED AT:[id number] [place] [place] [place] [id number] LE MD,PHD Blood Venous blood specimen / Unknown 01/14/2025 9:33 AM EDT 01/14/2025 2:33 PM EDT us Reuben Johnson MD LAB BLOOD ORDERABLES Final Result [facility] [address] [place] [address] [phone] documented in this encounter Visit Diagnoses Diagnosis Gynecomastia, male- Primary Hypertrophy of breast Hypogonadism in male documented in this encounter Additional Health Concerns Assessment Noted Time PHQ-9 Depression Total Score: 0 01/03/20 25 1:33 PM EDT documented as of this encounter Care Teams Interface Engineer Relationship Specialty Start Date End Date Reuben Johnson MD [address] [place] [address] [place] [address] PCP - General Internal Medicine 03/08/21 documented as of this encounter
--- OUTSIDE RECORDS SUMMARY | 2025-08-25 14:12 | XMS_ITS | Encounter Summary ---
Author Organization [employer] Address [address] [place] [address] 7 [place] [address] Care Team Providers Care Offset Press Operator Helper Name Role Phone Reuben Johnson MD Primary Care Provider [phone] Reason for Visit * Reason Comments Med Refill Encounter Details Date Type Department Care Team (Late st Contact Info) Description 11/12/2024 Refill [facility] [address] [place] [address] Reuben Johnson MD [address] [place] [address] Benign prostatic hyperplasia with lower urinary tract [...] symptoms documented in this encounter Care Teams Offset Press Operator Helper Relationship Specialty Start Date End Date Reuben Johnson MD [address] [place] [address] PCP - General Internal Medicine 03/08/21 documented as of this encounter
[2025-08-25 14:25] LABS: MANUAL DIFF FLAG NO
[2025-08-25 14:36] LABS: Hematocrit 41.5 % (42.0-52.0); Hemoglobin 14.2 g/dl (14.0-18.0); Imm Gran Abs Auto 0.02 X10*3/uL (0.00-0.03); Imm Gran Pct Auto 0.2 % (0.0-0.4); Lymphocytes Absolute Auto 1.8 X10*3/uL (1.2-4.9); Mean Corpuscular HGB Conc 34.2 g/dl (31.0-36.0); Mean Corpuscular Hemoglobin 32.9 pg (27.0-33.0); Mean Corpuscular Volume 96.1 fL (80.0-98.0); NRBC Abs Auto 0.000 X10*3/uL (0.0-0.012); NRBC Pct Auto 0.0 /100WBC (0.0-0.2); Platelet Count 367 X10*3/uL (160-400); Red Blood Count 4.32 X10*6/uL (4.60-5.80); White Blood Count 8.5 X10*3/uL (4.8-10.8)
[2025-08-25 17:29] LABS: Alanine Aminotransferase 29 U/L (0-40); Albumin Level 4.7 g/dL (3.5-5.0); Alkaline Phosphatase 86 U/L (39-117); Anion Gap 14 (12-20); Aspartate Amino Transferase 35 U/L (5-37); Blood Urea Nitrogen 13 mg/dL (9-16); Calcium 9.6 mg/dL (8.4-10.2); Carbon Dioxide 26 mmol/L (22-29); Chloride 101 mmol/L (96-108); Cholesterol 148 mg/dL (<200); Estimated Glomerular Filt Rate > 60; HDL Cholesterol 55 mg/dL (>40); Potassium 3.3 mmol/L (3.3-5.1); Sodium 138 mmol/L (135-145); Total Protein 7.6 g/dL (6.5-8.0); Triglycerides 222 mg/dL (<150)
[2025-08-26 04:53] LABS: ~HepC Num1 0.06 S/CO (0.00-0.79); ~Hepatitis C Antibody Nonreactive (Nonreactive)
== END 2025-08-25 11:04 | disposition home or self-care (01) ==
LOC: HO.CHCLDS 11:03
PROVIDERS: Visit Provider Internal Medicine
DX: I10 Essential (primary) hypertension (principal)
CPT/HCPCS: 36415; 80053; 80061; 84443; 85025; 86803